=== PATIENT | female | born 1935 | race Caucasian/White ===

== ENCOUNTER → 2017-08-03 14:25 | Outpatient (CLI) | payer MEDICARE, OTHER, SELFPAY ==
[2017-08-03 14:58] LABS: Add Manual Diff / Slide Review NO; Basophils Percent Auto 0.6 % (0-2); Eosinophils Percent Auto 2.5 % (2-4); Hematocrit 33.8 % (36-46); Lymphocytes Percent Auto 28.7 % (25-40); Mean Corpuscular HGB Conc 35.6 % (30-36); Mean Corpuscular Hemoglobin 32.5 PG (26-34); Mean Corpuscular Volume 91.3 fL (80-100); Monocytes Percent Auto 6.2 % (3-14); Neutrophils Absolute Auto 5200 /uL (3000-5900); Platelet Count 260 X10^3/uL (150-400); Red Blood Cell Count 3.71 X10^6/uL (4.0-5.2); Red Cell Distribution Width 12.9 % (11.6-14.8); White Blood Cell Count 8.4 X10^3/uL (4.5-11.0)
[2017-08-03 15:08] LABS: Alanine Aminotransferase 30 IU/L (9-52); Albumin 4.2 g/dL (3.5-5.0); Albumin Globulin Ratio 1.4 (1.0-2.8); Alkaline Phosphatase 114 U/L (38-126); Aspartate Aminotransferase 29 IU/L (14-36); BUN Creatinine Ratio 19.2 (6-22); Bilirubin Total 0.6 mg/dL (0.2-1.3); Blood Urea Nitrogen 25 mg/dL (7-17); Carbon Dioxide 26 mmol/L (22-32); Chloride 95 mmol/L (98-107); Cholesterol 150 mg/dL (140-199); Estimated Glomerular Filt Rate 39.4 mL/min (>60); Globulin 2.9 g/dL (1.7-4.1); Glucose 87 mg/dL (80-110); HDL Cholesterol 52 mg/dL (40-60); HEMOLYSIS < 15 (0-50); LDL Cholesterol Calculated 80 mg/dL (<100); Potassium 4.1 mmol/L (3.4-5.1); Sodium 131 mmol/L (137-145); Total Protein 7.1 g/dL (6.3-8.2); Triglycerides 88 mg/dL (35-150)
== END ==
PROVIDERS: PCP Physician Assistant; Visit Provider Physician Assistant
DX: I10 Essential (primary) hypertension (principal); E78.5 Hyperlipidemia, unspecified
CPT/HCPCS: 36415; 80053; 80061; 85025

== ENCOUNTER → 2017-08-14 13:26 | Outpatient (CLI) | payer MEDICARE, OTHER, SELFPAY ==
--- NOTE | 2017-08-14 | DI.CT.S_ITS ---
PROCEDURE: CT ABDOMEN PELVIS W CON INDICATIONS: 82 year-old female with right upper quadrant abdominal pain. TECHNIQUE: After the administration of oral and intravenous contrast, 5 mm thick sections acquired from the diaphragms to the symphysis. 5 mm thick coronal and sagittal reformats were performed. For radiation dose reduction, the following was used: automated exposure control, adjustment of mA and/or kV according to patient size. COMPARISON: None. FINDINGS: Image quality: Excellent. ABDOMEN: Lung bases: Lung bases are clear. Heart size is upper normal. There is small retrocardiac hiatal hernia. Solid organs: Liver is normal in size, with subtle 1.4 cm irregular enhancing lesion in segment 8 of the right hepatic lobe. Gallbladder contains a dependent 1.7 cm peripherally calcified gallstone. Biliary system is non-dilated. Pancreas enhances normally. Spleen is normal in size and enhancement. No adrenal nodules. Kidneys are normal in size, without hydronephrosis. 1.7 cm posteromedial right renal cortical simple cyst is present. Peritoneum and bowel: Stomach, small bowel, and colon loops are normal in caliber and wall thickness. Patient is status post appendectomy. There is moderate sigmoid colon diverticulosis. No free fluid or air. Nodes and vessels: No retroperitoneal or mesenteric adenopathy. Aorta and inferior vena cava are normal in caliber, with widespread aortoiliac atherosclerosis. Approximately 60% eccentric luminal stenoses involve the origins of the celiac trunk and superior mesenteric artery. The inferior mesenteric artery appears patent. Miscellaneous: No ventral hernias. PELVIS: Genitourinary: Bladder wall thickness is normal. Uterus and ovaries are normal in size. Miscellaneous: No inguinal hernias or adenopathy. Bones: No suspicious bony lesions. No vertebral body compression fractures. There is mild lumbar spine dextroscoliosis. IMPRESSION: 1. 1.7 cm dependent calcified gallstone, without evidence for acute cholecystitis. 2. Possible subtle 1.4 cm irregular enhancing right hepatic lobe lesion is indeterminate. Consider further characterization attempt with liver protocol pre-and post contrast abdominal MRI with Eovist contrast. 3. Small retrocardiac hiatal hernia. 4. Moderate sigmoid colon diverticulosis. 5. 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 Dictated by: Russ Butt M.D. on 08/14/2017 at 16:29 Approved by: Russ Butt M.D. on 08/14/2017 at 16:44
== END ==
PROVIDERS: PCP Physician Assistant; Visit Provider Physician Assistant
DX: R10.11 Right upper quadrant pain (principal); K80.80 Other cholelithiasis without obstruction; K44.9 Diaphragmatic hernia without obstruction or gangrene; K57.30 Diverticulosis of large intestine without perforation or abscess without bleeding; I77.4 Celiac artery compression syndrome; K55.1 Chronic vascular disorders of intestine
CPT/HCPCS: 74177

== ENCOUNTER 2018-04-25 11:20 | Emergency (ER) | payer MEDICARE, OTHER, SELFPAY ==
[2018-04-25 11:22] VITALS: BP 158/53; PULSE 55; RESP 16; TEMP 36.6; O2SAT 98; BMI 24.7
--- NOTE | 2018-04-25 11:48 | DI.CT.S_ITS ---
PROCEDURE: CT HEAD/BRAIN WO CON INDICATIONS: syncope on coumadin TECHNIQUE: Noncontrast 4.5 mm thick angled axial sections acquired from the foramen magnum to the vertex, with coronal and sagittal reformats. For radiation dose reduction, the following was used: automated exposure control, adjustment of mA and/or kV according to patient size. COMPARISON: [facility], CT, HEAD WITHOUT CONTRAST, 05/18/2017, 18:01. FINDINGS: Image quality: Excellent. CSF spaces: Basal cisterns are patent. No extra-axial fluid collections. The ventricles are symmetric in size and shape. Brain: No intracranial bleeds or masses. There is cerebral volume loss for age, with resultant ventricular and sulcal prominence. There are periventricular and deep white matter chronic small vessel ischemic changes. There is intracranial internal carotid artery atherosclerosis. Skull and face: Calvarium and visualized facial bones appear intact, without suspicious lesions. Sinuses: Visualized sinuses and mastoids are clear. IMPRESSION: 1. No acute intracranial process. 2. Moderate atrophy and chronic microvascular ischemic changes. Dictated by: Amy Nielsen M.D. on 04/25/2018 at 12:12 Approved by: Amy Nielsen M.D. on 04/25/2018 at 12:13
[2018-04-25 12:08] LABS: Add Manual Diff / Slide Review NO; Basophils Absolute Auto 0 /uL (0-100); Basophils Percent Auto 0.5 % (0-2); Eosinophils Absolute Auto 200 /uL (0-450); Eosinophils Percent Auto 2.7 % (2-4); Hematocrit 34.5 % (36-46); Hemoglobin 11.7 g/dL (12.0-16.0); Lymphocytes Absolute Auto 1400 /uL (1100-4500); Lymphocytes Percent Auto 20.4 % (25-40); Mean Corpuscular HGB Conc 33.9 % (30-36); Mean Corpuscular Hemoglobin 31.6 PG (26-34); Mean Corpuscular Volume 93.2 fL (80-100); Monocytes Absolute Auto 400 /uL (0-900); Monocytes Percent Auto 6.1 % (3-14); Neutrophils Absolute Auto 4900 /uL (1500-7000); Neutrophils Percent Auto 70.3 % (50-75); Platelet Count 250 X10^3/uL (150-400); Red Blood Cell Count 3.71 X10^6/uL (4.0-5.2); Red Cell Distribution Width 13.5 % (11.6-14.8)
[2018-04-25 12:09] LABS: INR 1.9 (0.9-1.3); Prothrombin Time 22.3 SECONDS (10.1-12.7)
[2018-04-25 12:13] LABS: Alanine Aminotransferase 30 IU/L (9-52); Albumin 3.9 g/dL (3.5-5.0); Albumin Globulin Ratio 1.3 (1.0-2.8); Alkaline Phosphatase 86 U/L (38-126); Aspartate Aminotransferase 26 IU/L (14-36); BUN Creatinine Ratio 19.2 (6-22); Bilirubin Total 0.5 mg/dL (0.2-1.3); Blood Urea Nitrogen 25 mg/dL (7-17); Calcium 9.6 mg/dL (8.4-10.2); Carbon Dioxide 24 mmol/L (22-32); Chloride 103 mmol/L (98-107); Creatine Kinase 51 U/L (30-135); Estimated Glomerular Filt Rate 39.4 mL/min (>60); Glucose 118 mg/dL (80-110); HEMOLYSIS < 15 (0-50); Potassium 3.9 mmol/L (3.4-5.1); Sodium 138 mmol/L (137-145); Total Protein 6.9 g/dL (6.3-8.2)
[2018-04-25 12:25] LABS: Troponin I < 0.012 ng/mL (0.01-0.034)
[2018-04-25] MEDS: SODIUM CHLORIDE 0.9% 1,000 ML 1000 ML IV (12:38)
--- NOTE | 2018-04-25 12:46 | ED.SYNCOPE ---
HPI - Syncope General Chief Complaint: Syncope Stated Complaint: PASSED OUT Time Seen by Provider: 04/25/18 11:41 Source: patient and family Mode of arrival: ambulatory Limitations: no limitations History of Present Illness HPI narrative: Patient is an 82-year-old female who presents after syncopal episode. She was previously constipated she did not take anything however she had is 4 loose bowel movements this morning. They did start out slightly formed however the last 2 were water. She was on the toilet when she passed out striking her head and cutting her right hand. She is on Coumadin as for factor 5 problem. She says she lost consciousness for about 10 min. His she is ambulatory in the ED she has no headache no visual problems no weakness no chest pain or heart palpitations. She denies any black or bloody stool no nausea or vomiting. MD complaint: loss of consciousness Onset (ago): hour(s) Witnessed: no Context: other ( While having bowel movement) Injuries sustained associated with event: head ( small abrasion left temporal area) and RUE ( dorsal side of hand) Current symptoms: none Related Data Home Medications Medication Instructions Recorded Confirmed alprazolam 0.25 mg PO DAILY PRN #0 05/18/17 amlodipine 10 mg PO QDAY #0 05/18/17 12/11/17 aspirin 81 mg PO QDAY #0 05/19/17 12/11/17 atorvastatin [Lipitor] 40 mg PO HS #0 05/19/17 12/11/17 carvedilol 25 mg tablet 25 mg PO BID 12/11/17 12/11/17 glucosamine-chondroitin 250 mg-200 2 tab PO QPC 12/11/17 12/11/17 mg tablet losartan 100 mg tablet 100 mg PO DAILY 12/11/17 12/11/17 magnesium 250 mg tablet 250 mg PO DAILY 12/11/17 12/11/17 terazosin 2 mg capsule 2 mg PO DAILY 12/11/17 12/11/17 vitamin B complex tablet 1 tab PO DAILY 12/11/17 12/11/17 warfarin 5 mg tablet 5 mg PO QMWF 12/11/17 12/11/17 Previous Rx's Medication Instructions Recorded estradiol 10 mcg vaginal tablet 10 mcg VAG 2XW #8 tab 01/04/18 Allergies Allergy/AdvReac Type Severity Reaction Status Date / Time No Known Drug Allergies Allergy Verified 04/25/18 11:30 Review of Systems Review of Systems ROS Unobtainable: All systems reviewed & are unremarkable except as noted in HPI and below Constitutional Denies chills, Denies fever(s), Denies lethargy and Denies weakness Eyes Denies change in vision, Denies eye discharge, Denies irritation and Denies loss of vision Cardiovascular Denies chest pain, Denies irregular heart rhythm, Denies lightheadedness, Denies palpitations, Denies dyspnea, Denies dyspnea on exertion and Denies orthopnea Respiratory Denies cough, Denies dyspnea, Denies dyspnea on exertion and Denies wheezing Gastrointestinal Gastrointestinal: Reports as per HPI Genitourinary Denies hematuria, Denies flank pain, Denies urinary incontinence and Denies urinary urgency Musculoskeletal Denies back pain, Denies muscle weakness, Denies numbness and Denies tingling Integumentary/Breasts Denies pruritus, Denies erythema, Denies rash and Denies wounds Neurologic Denies loss of vision, Denies numbness, Denies tingling and Denies weakness Endocrine Denies palpitations Allergic/Immunologic Denies wheezing [facility] Medical History Factor 5 Leiden mutation, heterozygous (Acute) Carpal tunnel syndrome (Chronic ~2010) Hearing loss (Chronic) Hypertension (Chronic ~2004) Kidney disease (Chronic ~1943) Vision disorder (Chronic) Measles (Resolved ~1947) Surgical History History of appendectomy (Resolved ~1957) Social History Smoking Status: Never smoker Social History Smoking Status: Never smoker Exam Initial Vital Signs Initial Vital Signs: Vital Signs Temperature 98 F 04/25/18 11:22 Pulse Rate 55 L 04/25/18 11:22 Respiratory Rate 16 04/25/18 11:22 Blood Pressure 158/53 H 04/25/18 11:22 Pulse Oximetry 98 04/25/18 11:22 GENERAL: Alert well-appearing elderly female HEENT: Head small left-sided temporal abrasion and no laceration no depressions no crepitation, neck is supple no vertebral tenderness no step-offs,EOMI, pupils reactive CARDIOVASCULAR: Regular rate and rhythm without murmurs, rubs or gallops. RESPIRATORY: Breath sounds equal bilaterally, no wheezes rales or rhonchi. ABDOMEN: Soft, nontender. Normoactive bowel sounds all 4 quadrants. No guarding or rebound. EXTREMITIES: Normal range of motion, no clubbing or edema. Neurovascularly intact NEUROLOGICAL: Alert and oriented x4.Normal gait and speech. 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 Good skin approximation. Course Orders Ordered: ED Orders 04/25/18 11:45 Complete Blood Count AUTO DIFF Stat Comprehensive Metabolic Panel Stat Prothrombin Time INR Stat Troponin & CK Cardiac Panel Stat 04/25/18 11:48 CT head/brain wo con Stat Discontinued Medications Sodium Chloride (Normal Saline 0.9%) 1,000 mls @ 1,000 mls/hr IV BOLUS ONE Stop: 04/25/18 12:47 Last Infusion: 04/25/18 14:07 Dose: 0 mls/hr Admin: 04/25/18 12:38 Dose: 1,000 mls/hr Vital Signs - 8 hr 04/25/18 11:22 04/25/18 13:30 04/25/18 14:07 Temperature 98 F Pulse Rate 55 L 63 63 Respiratory Rate 16 16 21 Blood Pressure 158/53 H 150/55 H Blood Pressure [Right Arm] 145/51 H Pulse Oximetry 98 98 97 MDM - Syncope Lab Data Attestation: I reviewed the patient's lab results. Result diagrams: 04/25/18 11:45 04/25/18 11:45 Lab Results 04/25/18 04/25/18 04/25/18 Range/Units 11:45 11:45 11:45 WBC 7.0 (4.5-11.0) X10^3/uL RBC 3.71 L (4.0-5.2) X10^6/uL Hgb 11.7 L (12.0-16.0) g/dL Hct 34.5 L (36-46) % MCV 93.2 (80-100) fL MCH 31.6 (26-34) PG MCHC 33.9 (30-36) % RDW 13.5 (11.6-14.8) % Plt Count 250 (150-400) X10^3/uL Neut % (Auto) 70.3 (50-75) % Lymph % (Auto) 20.4 L (25-40) % [place] % (Auto) 6.1 (3-14) % Eos % (Auto) 2.7 (2-4) % Baso % (Auto) 0.5 (0-2) % Neut # (Auto) 4900 (6136-6880) /uL Lymph # (Auto) 1400 (7606-0136) /uL [place] # (Auto) 400 (0-900) /uL Eos # (Auto) 200 (0-450) /uL Baso # (Auto) 0 (0-100) /uL PT 22.3 H (10.1-12.7) SECONDS INR 1.9 H (0.9-1.3) Sodium 138 (137-145) mmol/L Potassium 3.9 (3.4-5.1) mmol/L Chloride 103 (98-107) mmol/L Carbon Dioxide 24 (22-32) mmol/L BUN 25 H (7-17) mg/dL Creatinine 1.30 H (0.52-1.04) mg/dL Estimated GFR 39.4 L (>60) mL/min BUN/Creatinine Ratio 19.2 (6-22) Glucose 118 H (80-110) mg/dL Calcium 9.6 (8.4-10.2) mg/dL Total Bilirubin 0.5 (0.2-1.3) mg/dL AST 26 (14-36) IU/L ALT 30 (9-52) IU/L Alkaline Phosphatase 86 (38-126) U/L Total Creatine Kinase 51 (30-135) U/L CK-MB (CK-2) TNP CK-MB (CK-2) Rel Index TNP Troponin I < 0.012 (0.01-0.034) ng/mL Total Protein 6.9 (6.3-8.2) g/dL Albumin 3.9 (3.5-5.0) g/dL Globulin 3.0 (1.7-4.1) g/dL Albumin/Globulin Ratio 1.3 (1.0-2.8) Imaging Data CT scan - head: Radiologist's impression: PROCEDURE: CT HEAD/BRAIN WO CON INDICATIONS: syncope on coumadin TECHNIQUE: Noncontrast 4.5 mm thick angled axial sections acquired from the foramen magnum to the vertex, with coronal and sagittal reformats. For radiation dose reduction, the following was used: automated exposure control, adjustment of mA and/or kV according to patient size. COMPARISON: [facility], CT, HEAD WITHOUT CONTRAST, 05/18/2017, 18:01. FINDINGS: Image quality: Excellent. CSF spaces: Basal cisterns are patent. No extra-axial fluid collections. The ventricles are symmetric in size and shape. Brain: No intracranial bleeds or masses. There is cerebral volume loss for age, with resultant ventricular and sulcal prominence. There are periventricular and deep white matter chronic small vessel ischemic changes. There is intracranial internal carotid artery atherosclerosis. Skull and face: Calvarium and visualized facial bones appear intact, without suspicious lesions. Sinuses: Visualized sinuses and mastoids are clear. IMPRESSION: 1. No acute intracranial process. 2. Moderate atrophy and chronic microvascular ischemic changes. Dictated by: Amy Nielsen M.D. on 04/25/2018 at 12:12 ECG Data Attestation: I personally reviewed and interpreted this ECG as follows: Prior ECG tracings: available for review Interpretation: Normal sinus rhythm rate [address] changes no T-wave inversions appear interval 178 QTC 407 similar to prior EKGs MDM Narrative Medical decision making narrative: patient likely had a vasovagal reaction while having a bowel movement. As she did have another episode of diarrhea while in the ED she said it does seem to be slowing and becoming more solid again. At this time she appears well. Discharge Plan Departure Patient Disposition: Home Clinical Impression: Vasovagal syncope Diarrhea Qualifiers: Diarrhea type: unspecified type Qualified Code(s): R19.7 - Diarrhea, unspecified Discharge Date/Time: 04/25/18 14:09 Interventions: ED Discharge Assessment Last Done: 04/25/18 14:07 Instructions: DI for Syncope in Adults (Fainting) Activity Restrictions/Additional Instructions: *You have been diagnosed with Fainting, diarrhea *What to do: you likely PASSED OUT FROM [facility]. NO SIGNS OF DEHYDRATION. *Continue to take medications as directed *Follow up with your primary care provider in 2-3 days *Return to ER if you should have Worsening diarrhea, bloody diarrhea, recurrent passing out or any new, worsening or concerning symptoms Prescriptions: No Action alprazolam 0.25 MG tablet 0.25 mg PO DAILY PRNQty: 0 RF: 0 amlodipine 10 MG tablet 10 mg PO QDAY Qty: 0 RF: 0 atorvastatin [Lipitor] 40 MG tablet 40 mg PO HS Qty: 0 RF: 0 aspirin 81 MG tablet,delayed release (DR/EC) 81 mg PO QDAY Qty: 0 RF: 0 estradiol [Vagifem] 10 mcg tablet 10 mcg VAG 2XW Qty: 8 RF: 6 carvedilol 25 mg tablet 25 mg PO BID RF: 0 terazosin 2 mg capsule 2 mg PO DAILY RF: 0 warfarin 5 mg tablet 5 mg PO QMWF RF: 0 vitamin B complex [B Complex 1] tablet 1 tab PO DAILY RF: 0 magnesium 250 mg tablet 250 mg PO DAILY RF: 0 losartan 100 mg tablet 100 mg PO DAILY RF: 0 glucosamine-chondroitin [Osteo Bi-Flex] 250-200 mg tablet 2 tab PO QPC RF: 0 Referrals: Lynette Ulloa PA-C [Primary Care Provider] -
--- NOTE | 2018-04-25 12:50 | ED_ITS ---
HPI - Syncope General Chief Complaint: Syncope Stated Complaint: PASSED OUT Time Seen by Provider: 04/25/18 11:41 Source: patient and family Mode of arrival: ambulatory Limitations: no limitations History of Present Illness HPI narrative: Patient is an 82-year-old female who presents after syncopal episode. She was previously constipated she did not take anything however she had is 4 loose bowel movements this morning. They did start out slightly formed however the last 2 were water. She was on the toilet when she passed out striking her head and cutting her right hand. She is on Coumadin as for factor 5 problem. She says she lost consciousness for about 10 min. His she is ambulatory in the ED she has no headache no visual problems no weakness no chest pain or heart palpitations. She denies any black or bloody stool no nausea or vomiting. MD complaint: loss of consciousness Onset (ago): hour(s) Witnessed: no Context: other ( While having bowel movement) Injuries sustained associated with event: head ( small abrasion left temporal area) and RUE ( dorsal side of hand) Current symptoms: none Related Data Home Medications Medication Instructions Recorded Confirmed alprazolam 0.25 mg PO DAILY PRN #0 05/18/17 amlodipine 10 mg PO QDAY #0 05/18/17 12/11/17 aspirin 81 mg PO QDAY #0 05/19/17 12/11/17 atorvastatin [Lipitor] 40 mg PO HS #0 05/19/17 12/11/17 carvedilol 25 mg tablet 25 mg PO BID 12/11/17 12/11/17 glucosamine-chondroitin 250 mg-200 2 tab PO QPC 12/11/17 12/11/17 mg tablet losartan 100 mg tablet 100 mg PO DAILY 12/11/17 12/11/17 magnesium 250 mg tablet 250 mg PO DAILY 12/11/17 12/11/17 terazosin 2 mg capsule 2 mg PO DAILY 12/11/17 12/11/17 vitamin B complex tablet 1 tab PO DAILY 12/11/17 12/11/17 warfarin 5 mg tablet 5 mg PO QMWF 12/11/17 12/11/17 Previous Rx's Medication Instructions Recorded estradiol 10 mcg vaginal tablet 10 mcg VAG 2XW #8 tab 01/04/18 Allergies Allergy/AdvReac Type Severity Reaction Status Date / Time No Known Drug Allergies Allergy Verified 04/25/18 11:30 Review of Systems Review of Systems ROS Unobtainable: All systems reviewed & are unremarkable except as noted in HPI and below Constitutional Denies chills, Denies fever(s), Denies lethargy and Denies weakness Eyes Denies change in vision, Denies eye discharge, Denies irritation and Denies loss of vision Cardiovascular Denies chest pain, Denies irregular heart rhythm, Denies lightheadedness, Denies palpitations, Denies dyspnea, Denies dyspnea on exertion and Denies orthopnea Respiratory Denies cough, Denies dyspnea, Denies dyspnea on exertion and Denies wheezing Gastrointestinal Gastrointestinal: Reports as per HPI Genitourinary Denies hematuria, Denies flank pain, Denies urinary incontinence and Denies urinary urgency Musculoskeletal Denies back pain, Denies muscle weakness, Denies numbness and Denies tingling Integumentary/Breasts Denies pruritus, Denies erythema, Denies rash and Denies wounds Neurologic Denies loss of vision, Denies numbness, Denies tingling and Denies weakness Endocrine Denies palpitations Allergic/Immunologic Denies wheezing [facility] Medical History Factor 5 Leiden mutation, heterozygous (Acute) Carpal tunnel syndrome (Chronic ~2010) Hearing loss (Chronic) Hypertension (Chronic ~2004) Kidney disease (Chronic ~1943) Vision disorder (Chronic) Measles (Resolved ~1947) Surgical History History of appendectomy (Resolved ~1957) Social History Smoking Status: Never smoker Social History Smoking Status: Never smoker Exam Initial Vital Signs Initial Vital Signs: Vital Signs Temperature 98 F 04/25/18 11:22 Pulse Rate 55 L 04/25/18 11:22 Respiratory Rate 16 04/25/18 11:22 Blood Pressure 158/53 H 04/25/18 11:22 Pulse Oximetry 98 04/25/18 11:22 GENERAL: Alert well-appearing elderly female HEENT: Head small left-sided temporal abrasion and no laceration no depressions no crepitation, neck is supple no vertebral tenderness no step-offs,EOMI, pupils reactive CARDIOVASCULAR: Regular rate and rhythm without murmurs, rubs or gallops. RESPIRATORY: Breath sounds equal bilaterally, no wheezes rales or rhonchi. ABDOMEN: Soft, nontender. Normoactive bowel sounds all 4 quadrants. No guarding or rebound. EXTREMITIES: Normal range of motion, no clubbing or edema. Neurovascularly int act NEUROLOGICAL: Alert and oriented x4.Normal gait and speech. 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 Good ski n approximation. Course Orders Ordered: ED Orders 04/25/18 11:45 Complete Blood Count AUTO DIFF Stat Comprehensive Metabolic Panel Stat Prothrombin Time INR Stat Troponin & CK Cardiac Panel Stat 04/25/18 11:48 CT head/brain wo con Stat Discontinued Medications Sodium Chloride (Normal Saline 0.9%) 1,000 mls @ 1,000 mls/hr IV BOLUS ONE Stop: 04/25/18 12:47 Last Infusion: 04/25/18 14:07 Dose: 0 mls/hr Admin: 04/25/18 12:38 Dose: 1,000 mls/hr Vital Signs - 8 hr 04/25/18 11:22 04/25/18 13:30 04/25/18 14:07 Temperature 98 F Pulse Rate 55 L 63 63 Respiratory Rate 16 16 21 Blood Pressure 158/53 H 150/55 H Blood Pressure [Right Arm] 145/51 H Pulse Oximetry 98 98 97 MDM - Syncope Lab Data Attestation: I reviewed the patient's lab results. Result diagrams: 04/25/18 11:45 04/25/18 11:45 Lab Results 04/25/18 04/25/18 04/25/18 Range/Units 11:45 11:45 11:45 WBC 7.0 (4.5-11.0) X10^3/uL RBC 3.71 L (4.0-5.2) X10^6/uL Hgb 11.7 L (12.0-16.0) g/dL Hct 34.5 L (36-46) % MCV 93.2 (80-100) fL MCH 31.6 (26-34) PG MCHC 33.9 (30-36) % RDW 13.5 (11.6-14.8) % Plt Count 250 (150-400) X10^3/uL Neut % (Auto) 70.3 (50-75) % Lymph % (Auto) 20.4 L (25-40) % [place] % (Auto) 6.1 (3-14) % Eos % (Auto) 2.7 (2-4) % Baso % (Auto) 0.5 (0-2) % Neut # (Auto) 4900 (1118-2965) /uL Lymph # (Auto) 1400 (1741-4406) /uL [place] # (Auto) 400 (0-900) /uL Eos # (Auto) 200 (0-450) /uL Baso # (Auto) 0 (0-100) /uL PT 22.3 H (10.1-12.7) SECONDS INR 1.9 H (0.9-1.3) Sodium 138 (137-145) mmol/L Potassium 3.9 (3.4-5.1) mmol/L Chloride 103 (98-107) mmol/L Carbon Dioxide 24 (22-32) mmol/L BUN 25 H (7-17) mg/dL Creatinine 1.30 H (0.52-1.04) mg/dL Estimated GFR 39.4 L (>60) mL/min BUN/Creatinine Ratio 19.2 (6-22) Glucose 118 H (80-110) mg/dL Calcium 9.6 (8.4-10.2) mg/dL Total Bilirubin 0.5 (0.2-1.3) mg/dL AST 26 (14-36) IU/L ALT 30 (9-52) IU/L Alkaline Phosphatase 86 (38-126) U/L Total Creatine Kinase 51 (30-135) U/L CK-MB (CK-2) TNP CK-MB (CK-2) Rel Index TNP Troponin I < 0.012 (0.01-0.034) ng/mL Total Protein 6.9 (6.3-8.2) g/dL Albumin 3.9 (3.5-5.0) g/dL Globulin 3.0 (1.7-4.1) g/dL Albumin/Globulin Ratio 1.3 (1.0-2.8) Imaging Data CT scan - head: Radiologist's impression: PROCEDURE: CT HEAD/BRAIN WO CON INDICATIONS: syncope on coumadin TECHNIQUE: Noncontrast 4.5 mm thick angled axial sections acquired from the foramen magnum to the vertex, with coronal and sagittal reformats. For radiation dose reduction, the following was used: automated exposure control, adjustment of mA and/or kV according to patient size. COMPARISON: [facility], CT, HEAD WITHOUT CONTRAST, 05/18/2017, 18:01. FINDINGS: Image quality: Excellent. CSF spaces: Basal cisterns are patent. No extra-axial fluid collections. The ventricles are symmetric in size and shape. Brain: No intracranial bleeds or masses. There is cerebral volume loss for age, with resultant ventricular and sulcal prominence. There are periventricular and deep white matter chronic small vessel ischemic changes. There is intracranial internal carotid artery atherosclerosis. Skull and face: Calvarium and visualized facial bones appear intact, without suspicious lesions. Sinuses: Visualized sinuses and mastoids are clear. IMPRESSION: 1. No acute intracranial process. 2. Moderate atrophy and chronic microvascular ischemic changes. Dictated by: Amy Nielsen M.D. on 04/25/2018 at 12:12 ECG Data Attestation: I personally reviewed and interpreted this ECG as follows: Prior ECG tracings: available for review Interpretation: Normal sinus rhythm rate [address] changes no T-wave inversions appear interval 178 QTC 407 similar to prior EKGs MDM Narrative Medical decision making narrative: patient likely had a vasovagal reaction while having a bowel movement. As she did have another episode of diarrhea while in the ED she said it does seem to be slowing and becoming more solid again. At this time she appears well. Discharge Plan Departure Patient Disposition: Home Clinical Impression: Vasovagal syncope Diarrhea Qualifiers: Diarrhea type: unspecified type Qualified Code(s): R19.7 - Diarrhea, unspeci fied Discharge Date/Time: 04/25/18 14:09 Interventions: ED Discharge Assessment Last Done: 04/25/18 14:07 Instructions: DI for Syncope in Adults (Fainting) Activity Restrictions/Additional Instructions: *You have been diagnosed with Fainting, diarrhea *What to do: you likely PASSED OUT FROM [facility]. NO SIGNS OF DEHYDRATION. *Continue to take medications as directed *Follow up with your primary care provider in 2-3 days *Return to ER if you should have Worsening diarrhea, bloody diarrhea, recurrent passing out or any new, worsening or concerning symptoms Prescriptions: No Action alprazolam 0.25 MG tablet 0.25 mg PO DAILY PRNQty: 0 RF: 0 amlodipine 10 MG tablet 10 mg PO QDAY Qty: 0 RF: 0 atorvastatin [Lipitor] 40 MG tablet 40 mg PO HS Qty: 0 RF: 0 aspirin 81 MG tablet,delayed release (DR/EC) 81 mg PO QDAY Qty: 0 RF: 0 estradiol [Vagifem] 10 mcg tablet 10 mcg VAG 2XW Qty: 8 RF: 6 carvedilol 25 mg tablet 25 mg PO BID RF: 0 terazosin 2 mg capsule 2 mg PO DAILY RF: 0 warfarin 5 mg tablet 5 mg PO QMWF RF: 0 vitamin B complex [B Complex 1] tablet 1 tab PO DAILY RF: 0 magnesium 250 mg tablet 250 mg PO DAILY RF: 0 losartan 100 mg tablet 100 mg PO DAILY RF: 0 glucosamine-chondroitin [Osteo Bi-Flex] 250-200 mg tablet 2 tab PO QPC RF: 0 Referrals: Lynette Ulloa PA-C [Primary Care Provider] -
[2018-04-25 13:30] VITALS: BP 145/51; PULSE 63; RESP 16; O2SAT 98
[2018-04-25 14:07] VITALS: BP 150/55; PULSE 63; RESP 21; O2SAT 97
== END 2018-04-25 14:09 | disposition home or self-care (01) ==
PROVIDERS: Emergency Provider Emergency Medicine; PCP Physician Assistant
DX: R55 Syncope and collapse (principal); R19.7 Diarrhea, unspecified
CPT/HCPCS: 36415; 70450; 80053; 82550; 84484; 85025; 85610; 93005; 93010; 96360; 99283; 99285

== ENCOUNTER → 2018-06-09 11:12 | Outpatient (CLI) | payer MEDICARE, OTHER, SELFPAY ==
--- NOTE | 2018-06-09 | DI.RAD.S_ITS ---
PROCEDURE: XR FOOT LT MIN 3V INDICATIONS: LEFT FOOT AND LEFT ANKLE PAIN TECHNIQUE: 3 views of the foot were acquired. COMPARISON: None. FINDINGS: Bones: No fractures or dislocations. No suspicious bony lesions. Soft tissues: No tibiotalar joint effusion. Achilles tendon appears normal. Presumed distal venous calcifications, dystrophic in appearance, at the medial and lateral soft tissues of the distal calf. 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 Dictated by: Shahbaz Green M.D. on 06/09/2018 at 12:39 Approved by: Shahbaz Green M.D. on 06/09/2018 at 12:40
--- NOTE | 2018-06-09 | DI.RAD.S_ITS ---
PROCEDURE: XR ANKLE LT MIN 3V INDICATIONS: LEFT FOOT AND LEFT ANKLE PAIN TECHNIQUE: 3 views of the ankle were acquired. COMPARISON: None. FINDINGS: Bones: No fractures or dislocations there is a mild to moderate degree of tibiotalar joint degenerative joint space thinning. Ankle mortise is normally aligned. No suspicious bony lesions. Soft tissues: No tibiotalar joint effusion. Achilles tendon appears normal. Dystrophic calcifications likely within venous structures or phleboliths are present along the calf soft tissues both medially and laterally. 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 Dystrophic presumed venous calcifications as noted. Dictated by: Shahbaz Green M.D. on 06/09/2018 at 12:38 Approved by: Shahbaz Green M.D. on 06/09/2018 at 12:39
== END ==
PROVIDERS: PCP Physician Assistant; Visit Provider Physician Assistant
DX: M19.072 Primary osteoarthritis, left ankle and foot (principal); M25.572 Pain in left ankle and joints of left foot; M25.472 Effusion, left ankle
CPT/HCPCS: 73610; 73630

== ENCOUNTER → 2018-06-21 07:13 | Outpatient (CLI) | payer MEDICARE, OTHER, SELFPAY ==
[2018-06-21 08:30] LABS: Alanine Aminotransferase 37 IU/L (9-52); Albumin 3.5 g/dL (3.5-5.0); Albumin Globulin Ratio 1.3 (1.0-2.8); Alkaline Phosphatase 126 U/L (38-126); Aspartate Aminotransferase 29 IU/L (14-36); BUN Creatinine Ratio 21.5 (6-22); Bilirubin Total 0.5 mg/dL (0.2-1.3); Blood Urea Nitrogen 28 mg/dL (7-17); Calcium 9.7 mg/dL (8.4-10.2); Carbon Dioxide 22 mmol/L (22-32); Chloride 104 mmol/L (98-107); Cholesterol 197 mg/dL (140-199); Estimated Glomerular Filt Rate 39.3 mL/min (>60); Globulin 2.7 g/dL (1.7-4.1); Glucose 84 mg/dL (80-110); HDL Cholesterol 43 mg/dL (40-60); HEMOLYSIS < 15 (0-50); LDL Cholesterol Calculated 135 mg/dL (<100); Potassium 4.1 mmol/L (3.4-5.1); Sodium 136 mmol/L (137-145); Total Protein 6.2 g/dL (6.3-8.2); Triglycerides 97 mg/dL (35-150)
== END ==
PROVIDERS: Family Provider Physician Assistant; PCP Physician Assistant; Visit Provider Internal Medicine Cardiovascular Disease
DX: I10 Essential (primary) hypertension (principal)
CPT/HCPCS: 36415; 80053; 80061

== ENCOUNTER → 2018-11-04 09:30 | Outpatient (CLI) | payer MEDICARE, OTHER, SELFPAY ==
--- NOTE | 2018-11-04 10:42 | PM.TREADMILL ---
Cardiac Stress Test Report Referral & Results Date Patient Seen: 11/04/18 Requesting provider: Berta Oliva Indication: Vascular disease Rest ECG: Unremarkable Procedure Note: Today following both written and verbal informed consent the patient was exercised according to a standard Arik protocol patient went for a total of 5 minutes 3 seconds achieving a maximum heart rate of 113 maximum systolic blood pressure of 160 for. This is approximately 7.0 METS. Exercise was terminated at this point because of inability the patient to continue. Patient was also given Cardiolite through a previously started Hep-Lock IV by the diagnostic imaging staff approximately 1 minute prior to the cessation of exercise. Patient had a blunted heart rate response hit only about 93% of target heart rate. Blood pressure response was probably normal although maybe somewhat blunted as well No ST-T segment changes No dysrhythmias Functional aerobic impairment rates about-5% or 105% normal on the active scale Impression: No evidence of ischemia Average exercise capacity Please see perfusion imaging report as well Please note: Actual ECG tracings can be found in the PACS system.
--- NOTE | 2018-11-06 06:39 | DI.NM.S_ITS ---
DATE OF SERVICE: 11/05/2018 PROCEDURE: Exercise Myoview stress test. INDICATIONS: Atherosclerotic vascular disease, hypertension, hyperlipidemia. RADIOPHARMACEUTICAL: 27.3 mCi technetium-99m Myoview IV was injected at stress and 25.4 mCi technetium-99m Myoview IV was injected at rest. CARDIAC STRESS: The patient underwent exercise Myoview stress test under the supervision of an attending staff. She walked on Arik protocol for 5 minutes 03 second and felt fatigued. She was unable to continue. There was normal blood pressure response. She achieved 81% of target heart rate. Baseline exam was sinus with mild sinus bradycardia. During stress, there were no convincing ischemic changes. No significant arrhythmias seen. HONG -5%. RAW DATA: There appears to be adequate myocardial uptake. Gated study stress LV ejection fraction 95% without any obvious wall motion abnormalities. LV function appears to be hyperdynamic. TID ratio is 0.86, which is within normal limits. Resting end-diastolic volume 60. Lung/heart ratio 0.31, which is within normal limits. MYOCARDIAL PERFUSION: There is a normal myocardial perfusion. CONCLUSION: This is a normal myocardial perfusion study. It was a submaximal exercise stress test. The patient achieved 81% of target heart rate. On that workload, there was no ischemia or infarction. Functional aerobic impairment - 5%. Overall, this is a low-risk myocardial perfusion study. Leisa Espinoza - [employer]/fn/ts doc#: [id number]/job#: [id number] dd: 11/05/2018 12:37:00 dt: 11/06/2018 06:25:00 DICTATING /COPIES TO: Berta Oliva MD COPIES MNE: ROCKY
== END ==
PROVIDERS: PCP Physician Assistant; Visit Provider Internal Medicine Cardiovascular Disease
DX: I70.90 Unspecified atherosclerosis (principal); I10 Essential (primary) hypertension; E78.5 Hyperlipidemia, unspecified
CPT/HCPCS: 78452; 93016; 93017; 93018; A9502

== ENCOUNTER → 2019-02-04 13:20 | Outpatient (CLI) | payer MEDICARE, OTHER, SELFPAY ==
--- NOTE | 2019-02-04 | DI.MG.S_ITS ---
BILATERAL DIGITAL SCREENING MAMMOGRAM 3D/2D WITH CAD: 02/04/2019 CLINICAL: Routine screening. Family history of breast cancer. Comparison is made to exams dated: 03/06/2016 mammogram, 03/01/2015 mammogram - [facility], 11/08/2012 mammogram, and 09/16/2011 mammogram - [facility]. There are scattered fibroglandular elements in both breasts. Current study was also evaluated with a Computer Aided Detection (CAD) system. There are benign vascular calcifications in both breasts. There are mole markers on both breasts. No significant masses, calcifications, or other findings are seen in either breast. There has been no significant interval change. IMPRESSION: There is no mammographic evidence of malignancy. A 1 year screening mammogram is recommended. This exam was interpreted at Station ID: [id number]. NOTE: For mammograms, a report in lay terms will be sent to the patient. Approximately 15% of breast malignancies will not be visualized mammographically. In the management of a palpable breast mass, a negative mammogram must not discourage biopsy of a clinically suspicious lesion. Electronically Signed By: Mitul vasquez/pat:02/04/2019 18:57:42 letter sent: Normal Exam ACR BI-RADS Category 2: Benign Finding(s) 3342F
== END ==
PROVIDERS: PCP Physician Assistant; Visit Provider Physician Assistant
DX: Z12.31 Encounter for screening mammogram for malignant neoplasm of breast (principal); Z80.3 Family history of malignant neoplasm of breast
CPT/HCPCS: 77063; 77067

== ENCOUNTER → 2019-02-28 19:09 | Outpatient (ROUT) | payer MEDICARE, OTHER, SELFPAY ==
[2019-02-28 19:22] LABS: Add Manual Diff / Slide Review NO; Basophils Absolute Auto 100 /uL (0-100); Basophils Percent Auto 1.2 % (0-2); Eosinophils Absolute Auto 400 /uL (0-450); Eosinophils Percent Auto 4.5 % (2-4); Hematocrit 33.1 % (36-46); Hemoglobin 11.5 g/dL (12.0-16.0); Lymphocytes Absolute Auto 2200 /uL (1100-4500); Lymphocytes Percent Auto 25.5 % (25-40); Mean Corpuscular HGB Conc 34.8 % (30-36); Mean Corpuscular Volume 94.9 fL (80-100); Monocytes Absolute Auto 600 /uL (0-900); Monocytes Percent Auto 7.3 % (3-14); Neutrophils Absolute Auto 5200 /uL (1500-7000); Neutrophils Percent Auto 61.5 % (50-75); Platelet Count 301 X10^3/uL (150-400); Red Blood Cell Count 3.49 X10^6/uL (4.0-5.2); Red Cell Distribution Width 12.6 % (11.6-14.8); White Blood Cell Count 8.5 X10^3/uL (4.5-11.0)
[2019-02-28 19:29] LABS: Alanine Aminotransferase 19 IU/L (<35); Albumin 3.8 g/dL (3.5-5.0); Albumin Globulin Ratio 1.5 (1.0-2.8); Alkaline Phosphatase 123 U/L (38-126); Aspartate Aminotransferase 30 IU/L (14-36); BUN Creatinine Ratio 24.2 (6-22); Bilirubin Total 0.5 mg/dL (0.2-1.3); Blood Urea Nitrogen 29 mg/dL (7-17); C-Reactive Protein Quant 0.7 mg/dL (<1.0); Calcium 10.1 mg/dL (8.4-10.2); Carbon Dioxide 24 mmol/L (22-32); Chloride 102 mmol/L (98-107); Cholesterol 147 mg/dL (140-199); Estimated Glomerular Filt Rate 43.1 mL/min (>60); Globulin 2.6 g/dL (1.7-4.1); Glucose 86 mg/dL (80-110); HDL Cholesterol 40 mg/dL (40-60); HEMOLYSIS < 15 (0-50); LDL Cholesterol Calculated 86 mg/dL (<100); Potassium 4.6 mmol/L (3.4-5.1); Sodium 136 mmol/L (137-145); Total Protein 6.4 g/dL (6.3-8.2); Triglycerides 107 mg/dL (35-150)
[2019-02-28 19:43] LABS: Vitamin D 25 Hydroxy (D3) 70.7 ng/mL (30.0-100.0)
== END ==
PROVIDERS: PCP Physician Assistant; Visit Provider Physician Assistant
DX: I10 Essential (primary) hypertension (principal); E78.5 Hyperlipidemia, unspecified; R79.82 Elevated C-reactive protein (CRP); E55.9 Vitamin D deficiency, unspecified
CPT/HCPCS: 80053; 80061; 82306; 85025; 86140

== ENCOUNTER → 2019-03-01 15:11 | Outpatient (ROUT) | payer MEDICARE, OTHER, SELFPAY | PROVIDERS: PCP Physician Assistant; Visit Provider Physician Assistant | DX: I10 Essential (primary) hypertension (principal) ==

== ENCOUNTER → 2019-03-22 15:57 | Outpatient (ROUT) | payer MEDICARE, OTHER, SELFPAY ==
[2019-03-22 16:13] LABS: Add Manual Diff / Slide Review NO; Basophils Absolute Auto 100 /uL (0-100); Basophils Percent Auto 0.7 % (0-2); Eosinophils Absolute Auto 300 /uL (0-450); Hematocrit 35.2 % (36-46); Hemoglobin 12.3 g/dL (12.0-16.0); Lymphocytes Absolute Auto 1800 /uL (1100-4500); Lymphocytes Percent Auto 24.3 % (25-40); Mean Corpuscular HGB Conc 34.9 % (30-36); Mean Corpuscular Hemoglobin 32.8 PG (26-34); Mean Corpuscular Volume 94.2 fL (80-100); Monocytes Absolute Auto 400 /uL (0-900); Monocytes Percent Auto 5.9 % (3-14); Neutrophils Absolute Auto 4900 /uL (1500-7000); Neutrophils Percent Auto 65.1 % (50-75); Platelet Count 270 X10^3/uL (150-400); Red Blood Cell Count 3.73 X10^6/uL (4.0-5.2); White Blood Cell Count 7.5 X10^3/uL (4.5-11.0)
[2019-03-22 16:24] LABS: Alanine Aminotransferase 22 IU/L (<35); Albumin 4.1 g/dL (3.5-5.0); Albumin Globulin Ratio 1.3 (1.0-2.8); Alkaline Phosphatase 119 U/L (38-126); Aspartate Aminotransferase 36 IU/L (14-36); BUN Creatinine Ratio 23.1 (6-22); Bilirubin Total 0.5 mg/dL (0.2-1.3); Blood Urea Nitrogen 30 mg/dL (7-17); Calcium 10.4 mg/dL (8.4-10.2); Carbon Dioxide 25 mmol/L (22-32); Chloride 103 mmol/L (98-107); Estimated Glomerular Filt Rate 39.3 mL/min (>60); Globulin 3.1 g/dL (1.7-4.1); Glucose 81 mg/dL (80-110); HEMOLYSIS < 15 (0-50); Potassium 4.3 mmol/L (3.4-5.1); Sodium 137 mmol/L (137-145); Total Protein 7.2 g/dL (6.3-8.2)
[2019-03-22 16:26] LABS: C-Reactive Protein Quant < 0.5 mg/dL (<1.0)
[2019-03-22 16:27] LABS: Erythrocyte Sedimentation Rate 32 MM/HR (0-20)
== END ==
PROVIDERS: PCP Physician Assistant; Visit Provider Physician Assistant
DX: L03.116 Cellulitis of left lower limb (principal); I10 Essential (primary) hypertension
CPT/HCPCS: 80053; 85025; 85651; 86140

== ENCOUNTER → 2019-03-28 14:15 | Outpatient (CLI) | payer MEDICARE, OTHER, SELFPAY | PROVIDERS: PCP Physician Assistant; Visit Provider Family Medicine | DX: I87.2 Venous insufficiency (chronic) (peripheral) (principal); R60.9 Edema, unspecified | CPT/HCPCS: 99203; 99213 ==

== ENCOUNTER → 2019-04-04 10:44 | Outpatient (CLI) | payer MEDICARE, OTHER, SELFPAY | PROVIDERS: PCP Physician Assistant; Referring Provider Physician Assistant; Visit Provider Family Medicine | DX: I87.2 Venous insufficiency (chronic) (peripheral) (principal); R21 Rash and other nonspecific skin eruption; R60.0 Localized edema | CPT/HCPCS: 99212; 99213 ==

== ENCOUNTER → 2019-08-08 07:24 | Outpatient (CLI) | payer MEDICARE, OTHER, SELFPAY ==
[2019-08-08 08:13] LABS: Alanine Aminotransferase 17 IU/L (<35); Albumin 3.6 g/dL (3.5-5.0); Albumin Globulin Ratio 1.3 (1.0-2.8); Alkaline Phosphatase 105 U/L (38-126); Aspartate Aminotransferase 28 IU/L (14-36); BUN Creatinine Ratio 24.6 (6-22); Bilirubin Total 0.4 mg/dL (0.2-1.3); Blood Urea Nitrogen 29 mg/dL (7-17); Calcium 9.9 mg/dL (8.4-10.2); Carbon Dioxide 23 mmol/L (22-32); Chloride 111 mmol/L (98-107); Cholesterol 137 mg/dL (140-199); Estimated Glomerular Filt Rate 43.9 mL/min (>60); Globulin 2.8 g/dL (1.7-4.1); Glucose 93 mg/dL (80-110); HDL Cholesterol 54 mg/dL (40-60); HEMOLYSIS < 15 (0-50); LDL Cholesterol Calculated 67 mg/dL (<100); Potassium 4.1 mmol/L (3.4-5.1); Sodium 139 mmol/L (137-145); Total Protein 6.4 g/dL (6.3-8.2); Triglycerides 78 mg/dL (35-150)
== END ==
PROVIDERS: PCP Physician Assistant; Referring Provider Internal Medicine Cardiovascular Disease; Visit Provider Internal Medicine Cardiovascular Disease
DX: I70.90 Unspecified atherosclerosis (principal); I10 Essential (primary) hypertension
CPT/HCPCS: 36415; 80053; 80061

== ENCOUNTER → 2019-12-15 16:16 | Outpatient (ROUT) | payer MEDICARE, OTHER, SELFPAY ==
[2019-12-15 17:10] LABS: Add Manual Diff / Slide Review NO; Basophils Absolute Auto 100 /uL (0-100); Basophils Percent Auto 0.8 % (0-2); Eosinophils Absolute Auto 400 /uL (0-450); Eosinophils Percent Auto 4.4 % (2-4); Hematocrit 32.3 % (36-46); Hemoglobin 11.4 g/dL (12.0-16.0); Lymphocytes Absolute Auto 1800 /uL (1100-4500); Mean Corpuscular HGB Conc 35.2 % (30-36); Mean Corpuscular Hemoglobin 32.7 PG (26-34); Mean Corpuscular Volume 92.8 fL (80-100); Monocytes Absolute Auto 600 /uL (0-900); Monocytes Percent Auto 5.9 % (3-14); Neutrophils Absolute Auto 6700 /uL (1500-7000); Neutrophils Percent Auto 69.9 % (50-75); Platelet Count 281 X10^3/uL (150-400); Red Blood Cell Count 3.48 X10^6/uL (4.0-5.2); Red Cell Distribution Width 13.7 % (11.6-14.8); White Blood Cell Count 9.5 X10^3/uL (4.5-11.0)
[2019-12-15 17:32] LABS: Prothrombin Time 34.1 SECONDS (10.1-12.7)
[2019-12-15 17:41] LABS: Alanine Aminotransferase 17 IU/L (<35); Albumin 3.5 g/dL (3.5-5.0); Albumin Globulin Ratio 1.3 (1.0-2.8); Alkaline Phosphatase 146 U/L (38-126); Aspartate Aminotransferase 26 IU/L (14-36); BUN Creatinine Ratio 21.4 (6-22); Bilirubin Total 0.5 mg/dL (0.2-1.3); Blood Urea Nitrogen 25 mg/dL (7-17); Calcium 9.8 mg/dL (8.4-10.2); Carbon Dioxide 24 mmol/L (22-32); Chloride 99 mmol/L (98-107); Cholesterol 210 mg/dL (140-199); Estimated Glomerular Filt Rate 44.3 mL/min (>60); Globulin 2.8 g/dL (1.7-4.1); Glucose 102 mg/dL (80-110); HDL Cholesterol 45 mg/dL (40-60); HEMOLYSIS < 15 (0-50); LDL Cholesterol Calculated 138 mg/dL (<100); Magnesium 1.8 mg/dL (1.6-2.3); Potassium 4.5 mmol/L (3.4-5.1); Sodium 130 mmol/L (137-145); Total Protein 6.3 g/dL (6.3-8.2); Triglycerides 134 mg/dL (35-150)
== END ==
PROVIDERS: PCP Physician Assistant; Visit Provider Physician Assistant
DX: R42 Dizziness and giddiness (principal); R11.0 Nausea; I10 Essential (primary) hypertension; E78.5 Hyperlipidemia, unspecified; K21.00 Gastro-esophageal reflux disease with esophagitis, without bleeding; Z86.718 Personal history of other venous thrombosis and embolism
CPT/HCPCS: 80053; 80061; 83735; 84443; 85025; 85610

== ENCOUNTER → 2020-02-16 15:40 | Outpatient (CLI) | payer MEDICARE, OTHER, SELFPAY ==
--- NOTE | 2020-02-16 | DI.MG.S_ITS ---
BILATERAL DIGITAL SCREENING MAMMOGRAM 3D/2D WITH CAD: 02/16/2020 CLINICAL: Routine screening. Family history of breast cancer. Comparison is made to exams dated: 02/04/2019 mammogram, 03/06/2016 mammogram, and 03/01/2015 mammogram - [facility]. There are scattered fibroglandular elements in both breasts. Current study was also evaluated with a Computer Aided Detection (CAD) system. There are benign vascular calcifications in both breasts. There are mole markers on both breasts. No significant masses, calcifications, or other findings are seen in either breast. There has been no significant interval change. IMPRESSION: BENIGN There is no mammographic evidence of malignancy. A 1 year screening mammogram is recommended. This exam was interpreted at Station ID: [id number]. NOTE: For mammograms, a report in lay terms will be sent to the patient. Approximately 15% of breast malignancies will not be visualized mammographically. In the management of a palpable breast mass, a negative mammogram must not discourage biopsy of a clinically suspicious lesion. Electronically Signed By: Esau Rodriguez acr/pat:02/16/2020 16:48:29 letter sent: Normal Exam ACR BI-RADS Category 2: Benign Finding(s) 3342F
== END ==
PROVIDERS: PCP Physician Assistant; Referring Provider Physician Assistant; Visit Provider Physician Assistant
DX: Z12.31 Encounter for screening mammogram for malignant neoplasm of breast (principal); Z80.3 Family history of malignant neoplasm of breast
CPT/HCPCS: 77063; 77067

== ENCOUNTER → 2020-05-07 11:40 | Outpatient (CLI) | payer MEDICARE, OTHER, SELFPAY ==
--- NOTE | 2020-05-07 11:43 | DI.RAD.S_ITS ---
PROCEDURE: XR KNEE RT 1TO2V INDICATIONS: ACUTE PAIN OF RIGHT KNEE TECHNIQUE: 2 views of the knee were acquired. COMPARISON: [facility], , KNEE 3V LEFT, 08/01/2016, 13:14. FINDINGS: Bones: No fractures or dislocations. Moderate tricompartmental osteoarthritis is seen more prominent in medial femoral tibial compartment. No suspicious bony lesions. Soft tissues: Moderate suprapatellar joint effusion is noted. Chondrocalcinosis in medial and lateral femoral tibial compartments are seen. IMPRESSION: Worsening moderate tricompartmental osteoarthritis more prominent in medial femoral tibial compartment. Moderate joint effusion. Chondrocalcinosis as above. No acute fracture or dislocation. Dictated by: Abdon Smith M.D. on 05/07/2020 at 13:06 Approved by: Abdon Smith M.D. on 05/07/2020 at 13:17
== END ==
PROVIDERS: PCP Physician Assistant; Referring Provider Physician Assistant; Visit Provider Physician Assistant
DX: M25.561 Pain in right knee (principal); M17.11 Unilateral primary osteoarthritis, right knee; M25.461 Effusion, right knee; M11.261 Other chondrocalcinosis, right knee
CPT/HCPCS: 73560

== ENCOUNTER → 2020-05-08 18:50 | Outpatient (ROUT) | payer MEDICARE, OTHER, SELFPAY ==
[2020-05-08 19:28] LABS: Add Manual Diff / Slide Review NO; Basophils Absolute Auto 0 /uL (0-100); Basophils Percent Auto 0.3 % (0-2); Eosinophils Absolute Auto 200 /uL (0-450); Eosinophils Percent Auto 2.5 % (2-4); Hematocrit 34.3 % (36-46); Hemoglobin 11.8 g/dL (12.0-16.0); Lymphocytes Absolute Auto 2700 /uL (1100-4500); Lymphocytes Percent Auto 36.2 % (25-40); Mean Corpuscular HGB Conc 34.3 % (30-36); Mean Corpuscular Hemoglobin 32.5 PG (26-34); Mean Corpuscular Volume 94.7 fL (80-100); Monocytes Absolute Auto 500 /uL (0-900); Monocytes Percent Auto 6.5 % (3-14); Neutrophils Absolute Auto 4100 /uL (1500-7000); Neutrophils Percent Auto 54.5 % (50-75); Platelet Count 258 X10^3/uL (150-400); Red Blood Cell Count 3.62 X10^6/uL (4.0-5.2); Red Cell Distribution Width 13.6 % (11.6-14.8); White Blood Cell Count 7.5 X10^3/uL (4.5-11.0)
[2020-05-08 19:34] LABS: HEMOLYSIS < 15 (0-50); Iron 70 ug/dL (37-170)
[2020-05-08 19:35] LABS: Alanine Aminotransferase 19 IU/L (<35); Albumin 3.6 g/dL (3.5-5.0); Albumin Globulin Ratio 1.3 (1.0-2.8); Alkaline Phosphatase 125 U/L (38-126); Aspartate Aminotransferase 28 IU/L (14-36); Bilirubin Total 0.2 mg/dL (0.2-1.3); Blood Urea Nitrogen 35 mg/dL (7-17); C-Reactive Protein Quant 0.6 mg/dL (<1.0); Calcium 9.7 mg/dL (8.4-10.2); Carbon Dioxide 25 mmol/L (22-32); Chloride 106 mmol/L (98-107); Cholesterol 230 mg/dL (140-199); Estimated Glomerular Filt Rate 31.1 mL/min (>60); Globulin 2.7 g/dL (1.7-4.1); Glucose 125 mg/dL (80-110); HDL Cholesterol 42 mg/dL (40-60); HEMOLYSIS < 15 (0-50); LDL Cholesterol Calculated 142 mg/dL (<100); Potassium 4.4 mmol/L (3.4-5.1); Sodium 137 mmol/L (137-145); Total Protein 6.3 g/dL (6.3-8.2); Triglycerides 230 mg/dL (35-150)
[2020-05-08 19:48] LABS: Percent Iron Saturation 25 % (15-50); Total Iron Binding Capacity 275 ug/dL (265-497)
[2020-05-08 19:49] LABS: Transferrin 185 mg/dL (206-381)
[2020-05-08 19:53] LABS: Vitamin D 25 Hydroxy (D3) 52.7 ng/mL (30.0-100.0)
[2020-05-08 20:08] LABS: Ferritin 31 ng/mL (11-264)
[2020-05-08 20:23] LABS: Erythrocyte Sedimentation Rate 32 MM/HR (0-20)
== END ==
PROVIDERS: PCP Physician Assistant; Visit Provider Physician Assistant
DX: I10 Essential (primary) hypertension (principal); R79.82 Elevated C-reactive protein (CRP); E78.5 Hyperlipidemia, unspecified; R53.83 Other fatigue; M17.11 Unilateral primary osteoarthritis, right knee
CPT/HCPCS: 80053; 80061; 82306; 82728; 83540; 83550; 84443; 85025; 85651; 86140

== ENCOUNTER → 2020-05-14 19:34 | Outpatient (ROUT) | payer MEDICARE, OTHER, SELFPAY | PROVIDERS: PCP Physician Assistant; Visit Provider Physician Assistant | DX: R31.9 Hematuria, unspecified (principal) | CPT/HCPCS: 87077; 87086; 87186 ==

== ENCOUNTER → 2020-05-24 18:19 | Outpatient (ROUT) | payer MEDICARE, OTHER, SELFPAY ==
[2020-05-24 18:23] LABS: Bacteria Urine None Seen
[2020-05-24 19:27] LABS: Appearance Urine UA CLEAR; Bilirubin Urine UA NEGATIVE (NEGATIVE); Color Urine UA YELLOW; Culture Indicated Urine Cult Not Indicated; Glucose Urine UA NEGATIVE (Negative); Ketones Urine UA NEGATIVE (NEGATIVE); Leukocyte Esterase Urine UA 2+ (NEGATIVE); Nitrite Urine UA NEGATIVE (Negative); Occult Blood Urine UA TRACE-LYSED (Negative); Protein Urine UA NEGATIVE (Negative); Urobilinogen Urine UA 0.2 E.U./dL (0.2)
[2020-05-24 19:28] LABS: RBC Urine 1-5/HPF (0-5/HPF); Squamous Epithelial Cell Urine 1-5 /HPF (0-5/HPF); WBC Urine 1-5/HPF (0-5/HPF)
== END ==
PROVIDERS: PCP Physician Assistant; Visit Provider Physician Assistant
DX: N39.0 Urinary tract infection, site not specified (principal)
CPT/HCPCS: 81001; 87086

== ENCOUNTER → 2020-10-03 10:29 | Outpatient (CLI) | payer MEDICARE, OTHER, SELFPAY ==
[2020-10-03 13:04] LABS: Alanine Aminotransferase 24 IU/L (<35); Albumin 3.7 g/dL (3.5-5.0); Albumin Globulin Ratio 1.3 (1.0-2.8); Alkaline Phosphatase 132 U/L (38-126); Aspartate Aminotransferase 36 IU/L (14-36); BUN Creatinine Ratio 20.1 (6-22); Bilirubin Total 0.5 mg/dL (0.2-1.3); Blood Urea Nitrogen 31 mg/dL (7-17); Carbon Dioxide 25 mmol/L (22-32); Chloride 103 mmol/L (98-107); Cholesterol 245 mg/dL (140-199); Estimated Glomerular Filt Rate 32.2 mL/min (>60); Globulin 2.9 g/dL (1.7-4.1); Glucose 95 mg/dL (80-110); HDL Cholesterol 46 mg/dL (40-60); HEMOLYSIS < 15 (0-50); LDL Cholesterol Calculated 170 mg/dL (<100); Magnesium 2.1 mg/dL (1.6-2.3); Potassium 4.6 mmol/L (3.4-5.1); Sodium 136 mmol/L (137-145); Total Protein 6.6 g/dL (6.3-8.2); Triglycerides 146 mg/dL (35-150)
[2020-10-03 13:27] LABS: TSH w/ Reflex to FT4 0.46 uIU/mL (0.47-4.68)
[2020-10-03 15:14] LABS: Free T4, Direct Thyroxine 1.27 ng/dL (0.78-2.19)
[2020-10-04 09:43] LABS: Calcium 10.4 mg/dL (8.7-10.3); Parathyroid Hormone, Intact 21 pg/mL (15-65)
== END ==
PROVIDERS: PCP Physician Assistant; Referring Provider Physician Assistant; Visit Provider Physician Assistant
DX: I48.11 Longstanding persistent atrial fibrillation (principal); E78.2 Mixed hyperlipidemia; E83.52 Hypercalcemia; R42 Dizziness and giddiness
CPT/HCPCS: 36415; 80053; 80061; 82310; 83735; 83970; 84439; 84443

== ENCOUNTER → 2020-10-11 10:57 | Outpatient (CLI) | payer MEDICARE, OTHER, SELFPAY ==
--- NOTE | 2020-10-11 | DI.US.S_ITS ---
PROCEDURE: US CAROTID DOPPLER BI INDICATIONS: OCCLUSION AND STENOSIS BILATERAL CAROTID ARTERIES TECHNIQUE: Color and pulse Doppler interrogation was performed of both carotid systems, with image documentation and velocity measurements. COMPARISON: [facility], , CAROTID ARTERY DOPPLER BILAT, 12/23/2016, 10:23.. FINDINGS: Stenosis calculations are based on SRU (Society of Radiologists in Ultrasound) criteria. Right side: Brachial blood pressure: 133/64 mm Hg. Common Carotid Artery PSV: - Distal: 109 cm/s (previously 115 cm/s) Internal Carotid Artery PSV - 140 cm/s (previously 124 cm/s) EDV- 20 cm/s (previously 27 cm/s) External Carotid Artery PSV- Proximal: 386 cm/s (previously 229 cm/s) ICA/CCA PSV- Ratio: 1.3 (previously 1.1 cm/s) Delacruz scale imaging description: By peak systolic velocity criteria, a stenosis may be present in the neighborhood of 50-69%. However, by grayscale imaging, the stenosis appears to be 50% or less. There is a severe external carotid artery stenosis, which is progressive. Percent internal carotid artery stenosis: 50% or less. (previously less than 50%) Vertebral artery: Flow direction is antegrade. Left side: Brachial blood pressure: 137/64 mm Hg. Common Carotid Artery PSV- Distal: 134 cm/s (previously 131 cm/s) Internal Carotid Artery PSV- 145 cm/s (previously 135 cm/s) EDV- 31 cm/s (previously 35 cm/s) External Carotid Artery PSV- Proximal: 160 cm/s (previously 157 cm/s) ICA/CCA PSV- Ratio: 1.1 (previously 1.0 cm/s) Delacruz scale imaging description: By systolic velocity criteria, the left internal carotid artery may have a stenosis of between 50-69%. However, by grayscale imaging, stenosis appears to measure 50% or less. Percent internal carotid artery stenosis: 50% or less. (previously possibly in the neighborhood of 50% Vertebral artery: Flow direction is antegrade. IMPRESSION: 1. By peak systolic velocity criteria, pop bilateral internal carotid artery stenoses may be between 50-69%. However, by grayscale imaging, a stenosis in the order of 50% or less is suggested. 2. Progression of right external carotid artery stenosis, severe. Dictated by: Rory Soto M.D. on 10/11/2020 at 14:39 Approved by: Rory Soto M.D. on 10/11/2020 at 14:51
== END ==
PROVIDERS: PCP Physician Assistant; Referring Provider Physician Assistant; Visit Provider Physician Assistant
DX: I65.23 Occlusion and stenosis of bilateral carotid arteries (principal)
CPT/HCPCS: 93880

== ENCOUNTER → 2021-03-05 07:14 | Outpatient (CLI) | payer MEDICARE, OTHER, SELFPAY ==
[2021-03-05 09:05] LABS: BUN Creatinine Ratio 20.6 (6-22); Blood Urea Nitrogen 29 mg/dL (7-17); Calcium 9.8 mg/dL (8.4-10.2); Carbon Dioxide 23 mmol/L (22-32); Chloride 111 mmol/L (98-107); Cholesterol 172 mg/dL (140-199); Estimated Glomerular Filt Rate 35.6 mL/min (>60); Glucose 96 mg/dL (80-110); HDL Cholesterol 45 mg/dL (40-60); HEMOLYSIS < 15 (0-50); LDL Cholesterol Calculated 107 mg/dL (<100); Potassium 4.1 mmol/L (3.4-5.1); Sodium 137 mmol/L (137-145); Triglycerides 99 mg/dL (35-150)
== END ==
PROVIDERS: PCP Physician Assistant; Referring Provider Internal Medicine Cardiovascular Disease; Visit Provider Internal Medicine Cardiovascular Disease
DX: I10 Essential (primary) hypertension (principal); E78.5 Hyperlipidemia, unspecified
CPT/HCPCS: 36415; 80048; 80061

== ENCOUNTER → 2021-04-01 14:55 | Outpatient (CLI) | payer MEDICARE, OTHER, SELFPAY ==
--- NOTE | 2021-04-01 | DI.MG.S_ITS ---
BILATERAL DIGITAL SCREENING MAMMOGRAM 3D/2D WITH CAD: 04/01/2021 CLINICAL: Routine screening. Family history of breast cancer. Comparison is made to exams dated: 02/16/2020 mammogram, 02/04/2019 mammogram, and 03/06/2016 mammogram - [facility]. There are scattered fibroglandular elements in both breasts. Current study was also evaluated with a Computer Aided Detection (CAD) system. There are benign vascular calcifications in both breasts. There are mole markers on both breasts. No significant masses, calcifications, or other findings are seen in either breast. There has been no significant interval change. IMPRESSION: BENIGN There is no mammographic evidence of malignancy. A 1 year screening mammogram is recommended. This exam was interpreted at Station ID: [id number]. NOTE: For mammograms, a report in lay terms will be sent to the patient. Approximately 15% of breast malignancies will not be visualized mammographically. In the management of a palpable breast mass, a negative mammogram must not discourage biopsy of a clinically suspicious lesion. Electronically Signed By: Dave hurt/pat:04/01/2021 15:46:10 letter sent: Normal Exam ACR BI-RADS Category 2: Benign Finding(s) 3342F
== END ==
PROVIDERS: PCP Physician Assistant; Referring Provider Physician Assistant; Visit Provider Physician Assistant
DX: Z12.31 Encounter for screening mammogram for malignant neoplasm of breast (principal); Z80.3 Family history of malignant neoplasm of breast
CPT/HCPCS: 77063; 77067

== ENCOUNTER → 2021-12-20 07:47 | Outpatient (CLI) | payer MEDICARE, OTHER, SELFPAY ==
[2021-12-20 08:54] LABS: Cholesterol 158 mg/dL (140-199); HDL Cholesterol 51 mg/dL (40-60); LDL Cholesterol Calculated 86 mg/dL (<100); Triglycerides 104 mg/dL (35-150)
== END ==
PROVIDERS: PCP Physician Assistant; Referring Provider Internal Medicine Cardiovascular Disease; Visit Provider Internal Medicine Cardiovascular Disease
DX: E78.5 Hyperlipidemia, unspecified (principal)
CPT/HCPCS: 36415; 80061

== ENCOUNTER 2022-01-08 10:15 | Emergency (ER) | payer MEDICARE, OTHER, SELFPAY ==
[2022-01-08] VITALS (15 sets, daily range): BP systolic 158–188; BP diastolic 69–88; PULSE 51–62; RESP 12–27; TEMP 36.4; O2SAT 93–100
--- NOTE | 2022-01-08 10:18 | ED.GENADULT ---
HPI - General Adult General Chief complaint: Nausea/Vomiting/Diarrhea Stated complaint: NV weakness Time Seen by Provider: 01/08/22 10:15 Source: patient and EMS Mode of arrival: EMS Limitations: no limitations History of Present Illness HPI narrative: Patient is an 86-year-old female who is brought in by EMS for evaluation of onset of nausea and vomiting and diarrhea this morning. Patient also explains she is having week. Also had a syncopal episode this morning related to the vomiting and diarrhea. Prior to the episode she was at a normal state health. Denies chest pain. No shortness of breath. No recent travel. No change in medications. Related Data Home Medications Medication Instructions Recorded Confirmed amlodipine 10 mg tablet 10 mg PO QDAY ##0 05/18/17 12/10/21 aspirin 81 mg tablet,delayed 81 mg PO QDAY ##0 05/19/17 12/10/21 release atorvastatin 40 mg tablet (Lipitor) 40 mg PO HS ##0 05/19/17 12/10/21 carvedilol 25 mg tablet 25 mg PO BID 12/11/17 12/10/21 glucosamine-chondroitin 250 mg-200 2 tab PO QPC 12/11/17 12/10/21 mg tablet (Osteo Bi-Flex) losartan 100 mg tablet 100 mg PO DAILY 12/11/17 12/10/21 magnesium 250 mg tablet 250 mg PO DAILY 12/11/17 12/10/21 terazosin 2 mg capsule 2 mg PO DAILY 12/11/17 12/10/21 vitamin B complex (B Complex 1 1 tab PO DAILY 12/11/17 12/10/21 tablet) warfarin 5 mg tablet 5 mg PO QMWF 12/11/17 12/10/21 Previous Rx's Medication Instructions Recorded oxyquinoline 0.025 %-sodium lauryl See Rx Instructions .Route 11/07/21 sulfate 0.01 % vaginal gel .COMPLEX #113.4 grams (Trimo-Lloyd Jelly) ondansetron 4 mg disintegrating 4 mg PO Q6H PRN nausea and 01/08/22 tablet vomiting #10 tabs sulfamethoxazole 800 1 tab PO Q12H 3 days #6 tabs 01/08/22 mg-trimethoprim 160 mg tablet (Bactrim DS) Allergies Allergy/AdvReac Type Severity Reaction Status Date / Time No Known Drug Allergies Allergy Verified 12/10/21 11:16 Review of Systems Constitutional Constitutional: Reports system reviewed and no additional complaints, except as documented Gastrointestinal Gastrointestinal: Reports system reviewed and no additional complaints, except as documented Genitourinary Genitourinary: Reports system reviewed and no additional complaints, except as documented Musculoskeletal Musculoskeletal: Reports system reviewed and no additional complaints, except as documented Integumentary/Breasts Comments: Skin tear left arm Neurologic Neurologic: Reports system reviewed and no additional complaints, except as documented Hematologic/Lymphatic On Anticoagulants: Yes Patient History Medical History Carpal tunnel syndrome (~2010) Factor 5 Leiden mutation, heterozygous Hearing loss Hypertension (~2004) Kidney disease (~1943) Measles (~194) Pelvic relaxation Vision disorder Surgical History (Updated 01/07/18 @ 22:23 by Sonja Orourke) History of appendectomy (~1957) Social History Smoking Status: Never smoker Smoking Status: Never smoker Substance Use Type: does not use Exam Initial Vital Signs Initial Vital Signs: Vital Signs Pulse Rate 54 L 01/08/22 10:14 Respiratory Rate 19 01/08/22 10:14 Pulse Oximetry 100 01/08/22 10:14 HENMT Head: normal to inspection and normocephalic Resp Effort & Inspection: normal respiratory effort Auscultation: clear to auscultation bilaterally Cardio Rate: regular rate Rhythm: regular rhythm GI Inspection: normal to inspection Palpation: soft and No tender Back/Spine/Pelvis Cervical Spine: No cervical spinal tenderness Skin Other: Superficial skin tear left elbow Neuro General: patient alert, patient awake, patient oriented x3 and moves all extremities Cognition: normal cognition Speech: speech normal Extrem Other: Full range of motion bilateral upper extremities. Pelvis is stable. Lower extremities unremarkable. Course Orders Ordered: ED Orders 01/08/22 10:15 Complete Blood Count AUTO DIFF Stat Comprehensive Metabolic Panel Stat Lipase Stat 01/08/22 10:54 EKG-12 Lead Stat 01/08/22 11:58 GI Panel (Film Array) Stat 01/08/22 13:42 Urine Culture Stat Urine Microscopic Stat Discontinued Medications Sodium Chloride (Normal Saline 0.9%) 1,000 mls @ 500 mls/hr IV BOLUS ONE Stop: 01/08/22 12:17 Last Infusion: 01/08/22 12:20 Dose: 0 mls/hr Documented By: Admin: 01/08/22 11:28 Dose: 500 mls/hr Documented By: SARBJIT Vital Signs Vital signs: Vital Signs - 8 hr 01/08/22 10:28 01/08/22 10:14 01/08/22 10:15 Temperature 97.6 F Pulse Rate 54 L 54 L 51 L Respiratory Rate 16 19 14 Blood Pressure 188/78 H Pulse Oximetry 100 100 100 Oxygen Delivery Method Room Air 01/08/22 10:15 01/08/22 10:30 01/08/22 10:31 Temperature Pulse Rate 55 L 56 L Respiratory Rate 24 21 Blood Pressure 188/78 H Pulse Oximetry 99 99 Oxygen Delivery Method 01/08/22 10:31 01/08/22 10:43 01/08/22 10:43 Temperature Pulse Rate 61 Respiratory Rate 18 Blood Pressure 167/74 H 176/70 H Pulse Oximetry 95 Oxygen Delivery Method 01/08/22 11:00 01/08/22 11:01 01/08/22 11:01 Temperature Pulse Rate 55 L 54 L Respiratory Rate 27 H 16 Blood Pressure 166/71 H Pulse Oximetry 97 98 Oxygen Delivery Method 01/08/22 11:30 01/08/22 11:31 01/08/22 11:31 Temperature Pulse Rate 60 56 L Respiratory Rate 25 H 13 Blood Pressure 162/88 H Pulse Oximetry 98 99 Oxygen Delivery Method 01/08/22 12:00 01/08/22 12:01 01/08/22 12:01 Temperature Pulse Rate 61 62 Respiratory Rate 13 14 Blood Pressure 167/73 H Pulse Oximetry 96 98 Oxygen Delivery Method 01/08/22 12:30 01/08/22 12:30 01/08/22 13:00 Temperature Pulse Rate 62 61 Respiratory Rate 13 13 Blood Pressure 172/72 H Pulse Oximetry 99 93 Oxygen Delivery Method 01/08/22 13:01 01/08/22 13:01 Temperature Pulse Rate 59 L Respiratory Rate 12 Blood Pressure 158/69 H Pulse Oximetry 94 Oxygen Delivery Method Medical Decision Making Lab Data Lab results reviewed: Yes I reviewed the patient's lab results. Result diagrams: 01/08/22 10:15 01/08/22 10:15 Labs: Lab Results 01/08/22 01/08/22 01/08/22 Range/Units 10:15 10:15 11:58 WBC 8.9 (4.5-11.0) X10^3/uL RBC 3.76 L (4.0-5.2) X10^6/uL Hgb 11.9 L (12.0-16.0) g/dL Hct 34.3 L (36-46) % MCV 91.3 (80-100) fL MCH 31.7 (26-34) PG MCHC 34.7 (30-36) % RDW 13.2 (11.6-14.8) % Plt Count 204 (150-400) X10^3/uL Neut % (Auto) 51.2 (50-75) % Lymph % (Auto) 41.7 H (25-40) % Florence % (Auto) 4.8 (3-14) % Eos % (Auto) 1.4 L (2-4) % Baso % (Auto) 0.9 (0-2) % Neut # (Auto) 4600 (1339-4590) /uL Lymph # (Auto) 3700 (9623-6479) /uL Florence # (Auto) 400 (0-900) /uL Eos # (Auto) 100 (0-450) /uL Baso # (Auto) 100 (0-100) /uL Sodium 135 L (137-145) mmol/L Potassium 4.1 (3.4-5.1) mmol/L Chloride 104 (98-107) mmol/L Carbon Dioxide 23 (22-32) mmol/L BUN 23 H (7-17) mg/dL Creatinine 1.36 H (0.52-1.04) mg/dL Estimated GFR 38 L (>60) mL/min BUN/Creatinine Ratio 16.9 (6-22) Glucose 149 H (80-110) mg/dL Calcium 9.9 (8.4-10.2) mg/dL Total Bilirubin 0.5 (0.2-1.3) mg/dL AST 32 (14-36) IU/L ALT 20 (<35) IU/L Alkaline Phosphatase 138 H (38-126) U/L Total Protein 7.3 (6.3-8.2) g/dL Albumin 4.0 (3.5-5.0) g/dL Globulin 3.3 (1.7-4.1) g/dL Albumin/Globulin Ratio 1.2 (1.0-2.8) Lipase 145 (23-300) U/L Stl C. cayetanensis PCR Not detected (Not Detect) Stool Rotavirus (PCR) Not detected (Not Detect) Stool Adenovirus (PCR) Not detected (Not Detect) Stool Astrovirus (PCR) Not detected (Not Detect) Stool Cryptosporidium PCR Not detected (Not Detect) Stl E.coli Shiga Tox PCR Not detected (Not Detect) St Sh/Enteroin Ecoli PCR Not detected (Not Detect) Stool E coli O157 PCR Not Reportable Stl Enterotoxigenic E PCR Not detected (Not Detect) Stool EPEC (PCR) Not detected (Not Detect) Stl E. histolytica PCR Not detected (Not Detect) Stool Giardia Lamblia PCR Not detected (Not Detect) Stool Sapovirus (PCR) Not detected (Not Detect) Stl P. shigelloides PCR Not detected (Not Detect) St Y.enterocolitica PCR Not detected (Not Detect) Stool Vibrio (PCR) Not detected (Not Detect) Stl Vibrio cholerae PCR Not detected (Not Detect) Stl Enteroaggr Ecoli PCR Not detected (Not Detect) Stl Norovirus GI/GII PCR Not detected (Not Detect) Campylobacter (PCR) Not detected (Not Detect) C. difficile Tox (PCR) Not detected (Not Detect) Salmonella (PCR) Not detected (Not Detect) Urine Dip Bedside Urine Glucose Negative Bedside Urine Bilirubin - Negative Bedside Urine Ketone - Negative Urine Specific [place] 1.010 Bedside Urine Occult Blood - Negative Bedside Urine pH 6.0 Bedside Urine Protein - Negative Bedside Urine Urobilinogen - Negative Bedside Urine Nitrite + Positive Bedside Urine Leukocytes + 70 Esterase Point of care testing: Urine Dip Bedside Urine Glucose Negative Bedside Urine Bilirubin - Negative Bedside Urine Ketone - Negative Urine Specific [place] 1.010 Bedside Urine Occult Blood - Negative Bedside Urine pH 6.0 Bedside Urine Protein - Negative Bedside Urine Urobilinogen - Negative Bedside Urine Nitrite + Positive Bedside Urine Leukocytes + 70 Esterase ECG Data Attestation: I personally reviewed and interpreted this ECG as follows: Interpretation: Sinus rhythm Ventricular rate is 62 Normal axis Normal QRS Normal QTC No ST T wave changes MDM Narrative Medical decision making narrative: Patient states she is feeling much better. Is tolerating oral intake. Her workup here in the emergency department is very reassuring. Her urinalysis is nitrite positive. States she does get frequent urinary tract infections. She is not currently having any urinary symptoms. States sulfa normally works for her. Discharged home with nausea medications and sulfa. She was given return precautions. She expressed understanding and agreement. Discharge Plan Departure Patient Disposition: Home Clinical Impression: Nausea, vomiting, and diarrhea, Urinary tract infection Instructions: DI for Urinary Tract Infection (UTI), Nausea and Vomiting-Adult Activity Restrictions/Additional Instructions: Medications were sent to the pharmacy of your choice. Please continue to take all of your medications as directed. Return to the emergency department for any new or worsening symptoms. Prescriptions: New ondansetron 4 mg tablet,disintegrating 4 mg PO Q6H PRN (Reason: nausea and vomiting) Qty: 10 0RF sulfamethoxazole-trimethoprim [Bactrim DS] 800-160 mg tablet 1 tab PO Q12H 3 Days Qty: 6 0RF No Action amlodipine 10 MG tablet 10 mg PO QDAY Qty: 0 atorvastatin [Lipitor] 40 MG tablet 40 mg PO HS Qty: 0 aspirin 81 MG tablet,delayed release (DR/EC) 81 mg PO QDAY Qty: 0 carvedilol 25 mg tablet 25 mg PO BID terazosin 2 mg capsule 2 mg PO DAILY warfarin 5 mg tablet 5 mg PO QMWF vitamin B complex [B Complex 1] tablet 1 tab PO DAILY magnesium 250 mg tablet 250 mg PO DAILY losartan 100 mg tablet 100 mg PO DAILY glucosamine-chondroitin [Osteo Bi-Flex] 250-200 mg tablet 2 tab PO QPC Trimo-Lloyd Jelly 0.025-0.01 % gel See Rx Instructions .ROUTE .COMPLEX Qty: 113.4 3RF Dose Instruction: USE 1 APPLICATOR IN VAGINA WEEKLY Rx Instructions: USE 1 APPLICATOR IN VAGINA WEEKLY Referrals: Lynette Ulloa PA-C [Primary Care Provider] -
[2022-01-08 10:27] LABS: Add Manual Diff / Slide Review NO; Basophils Absolute Auto 100 /uL (0-100); Basophils Percent Auto 0.9 % (0-2); Eosinophils Absolute Auto 100 /uL (0-450); Eosinophils Percent Auto 1.4 % (2-4); Hematocrit 34.3 % (36-46); Hemoglobin 11.9 g/dL (12.0-16.0); Lymphocytes Absolute Auto 3700 /uL (1100-4500); Lymphocytes Percent Auto 41.7 % (25-40); Mean Corpuscular HGB Conc 34.7 % (30-36); Mean Corpuscular Hemoglobin 31.7 PG (26-34); Mean Corpuscular Volume 91.3 fL (80-100); Monocytes Absolute Auto 400 /uL (0-900); Monocytes Percent Auto 4.8 % (3-14); Neutrophils Absolute Auto 4600 /uL (1500-7000); Neutrophils Percent Auto 51.2 % (50-75); Platelet Count 204 X10^3/uL (150-400); Red Blood Cell Count 3.76 X10^6/uL (4.0-5.2); Red Cell Distribution Width 13.2 % (11.6-14.8); White Blood Cell Count 8.9 X10^3/uL (4.5-11.0)
[2022-01-08 10:42] LABS: Alanine Aminotransferase 20 IU/L (<35); Albumin Globulin Ratio 1.2 (1.0-2.8); Alkaline Phosphatase 138 U/L (38-126); Aspartate Aminotransferase 32 IU/L (14-36); BUN Creatinine Ratio 16.9 (6-22); Bilirubin Total 0.5 mg/dL (0.2-1.3); Blood Urea Nitrogen 23 mg/dL (7-17); Calcium 9.9 mg/dL (8.4-10.2); Carbon Dioxide 23 mmol/L (22-32); Chloride 104 mmol/L (98-107); Estimated Glomerular Filt Rate 38 mL/min (>60); Globulin 3.3 g/dL (1.7-4.1); Glucose 149 mg/dL (80-110); HEMOLYSIS 42 (0-50); Lipase 145 U/L (23-300); Potassium 4.1 mmol/L (3.4-5.1); Sodium 135 mmol/L (137-145); Total Protein 7.3 g/dL (6.3-8.2)
[2022-01-08] MEDS: SODIUM CHLORIDE 0.9% 1,000 ML 500 ML IV (11:28)
[2022-01-08 13:41] LABS: Adenovirus F 40/41 Not Detected (Not Detect); Astrovirus Not Detected (Not Detect); Campylobacter Not Detected (Not Detect); Clostridium difficile toxin AB Not Detected (Not Detect); Cryptosporidium Not Detected (Not Detect); Cyclospora cayetanensis Not Detected (Not Detect); Entamoeba histolytica Not Detected (Not Detect); Enteroaggregative E.coli Not Detected (Not Detect); Enteropathogenic E.coli Not Detected (Not Detect); Enterotoxigenic E.coli It/st Not Detected (Not Detect); Giardia lamblia Not Detected (Not Detect); Norovirus GI/GII Not Detected (Not Detect); Plesiomonsa shigelloides Not Detected (Not Detect); Rotavirus A Not Detected (Not Detect); Salmonella Not Detected (Not Detect); Sapovirus Not Detected (Not Detect); Shiga-like toxin-prod E.coli Not Detected (Not Detect); Shigella/Enteroinvasive E.coli Not Detected (Not Detect); Vibrio Not Detected (Not Detect); Vibrio cholerae Not Detected (Not Detect); Yersinia enterocolitica Not Detected (Not Detect)
[2022-01-08 15:02] LABS: Bacteria Urine Many (>30); RBC Urine 0-1/HPF (0-5/HPF); Squamous Epithelial Cell Urine 1-5 /HPF (0-5/HPF); WBC Urine 10-30/HPF (0-5/HPF)
== END 2022-01-08 14:27 | disposition home or self-care (01) ==
PROVIDERS: Emergency Provider Emergency Medicine; PCP Physician Assistant
DX: N39.0 Urinary tract infection, site not specified (principal); R11.2 Nausea with vomiting, unspecified; R19.7 Diarrhea, unspecified; I10 Essential (primary) hypertension
CPT/HCPCS: 80053; 81003; 81015; 83690; 85025; 87077; 87086; 87186; 87507; 93005; 93010; 96360; 99283; 99284

== ENCOUNTER 2022-03-31 06:32 | Day surgery (SDC) | payer MEDICARE, OTHER, SELFPAY ==
[2022-03-26 07:24] VITALS: BMI 22.8
--- NOTE | 2022-03-31 | PATH_ITS ---
[facility] Accession Number: [id number] No. of containers..02 Tissue . 01 Material submitted: . PART A: endocervix - ENDOCERVICAL CURETTINGS PART B: endometrium - ENDOMETRIAL CURETTINGS . 01 Diagnosis: A. Endocervix, Curettage: Portions of inactive endometrium with chronic endometritis and cystic change. Few fragments of inflamed squamous mucosa. A minute strip of benign endocervical epithelium. No evidence of neoplasia, dysplasia, or malignancy. . B. Endometrium, Curettage: Mixed polyp consisting of inactive endometrial glandular epithelium (predominantly) and upper endocervical mucosa/epithelium. Background with chronic endometritis and cystic atrophy. No evidence of endometroid intraepithelial neoplasia, dysplasia or malignancy. [facility] 04/04/2022 1602 Local . 01 Electronically signed: Renu Hernandez MD, Pathologist NPI- [id number] . 01 Gross description: . A. Received in formalin labeled with the patient's name, , and endocervical curettings, and consists of multiple minute bonilla soft tissue fragments admixed with mucoid material aggregating to 0.8 x 0.3 x 0.1 cm. The specimen is filtered into a biopsy bag and submitted entirely in cassette A1. B. Received in formalin labeled with the patient's name, , and endometrial curetting, and consists of multiple bonilla soft tissue fragments admixed with mucohemorrhagic material aggregating to 2.5 x 1.1 x 0.3 cm. The specimen is filtered into a biopsy bag and submitted entirely in cassette B1. ([id number]) /[facility] 04/02/2022 0342 Local . 01 Pathologist provided ICD-10: N71.1, N84.0, N95.0 . 01 CPT . 407873, [id number] Performed at: [facility] [address] [place] [address] [address], [place], [place] [id number] MD Francois Draper MD Phone: [phone]
[2022-03-31 07:04] VITALS: BP 153/56; PULSE 54; RESP 16; TEMP 36.2; O2SAT 99; BMI 23.3
[2022-03-31] MEDS: LACTATED RINGERS 1,000 ML 100 ML IV (07:15)
--- NOTE | 2022-03-31 07:48 | PM.HP.1 ---
History of Present Illness History of Present Illness Date Patient Seen: 03/31/22 Time Patient Seen: 07:48 Chief complaint: SDC Narrative: Patient is an 86-year-old 4 para 4 with postmenopausal bleeding and endometrial hyperplasia, possible endometrial polyp. She presents for a D&C hysteroscopy with possible polypectomy. Patient History Medical History (Updated 03/26/22 @ 07:38 by Monet Carnes RN) Carotid artery stenosis Carpal tunnel syndrome (~2010) Factor 5 Leiden mutation, heterozygous Hearing loss HLD (hyperlipidemia) Hypertension (~2004) Kidney disease (~1943) Kidney disease (194) Measles (~1947) Pelvic relaxation Vision disorder Surgical History (Updated 01/07/18 @ 22:23 by Sonja Orourke) History of appendectomy (~1957) Family & Social History Social History: household members children Tobacco & Substance use: Smoking Status Never smoker alcohol intake never Substance Use Type does not use Meds Home Medications and Allergies Home Medications Medication Instructions Recorded Confirmed Type amlodipine 10 mg tablet 10 mg PO QDAY ##0 05/18/17 03/31/22 History aspirin 81 mg tablet,delayed 81 mg PO QDAY ##0 05/19/17 03/31/22 History release atorvastatin 40 mg tablet (Lipitor) 40 mg PO HS ##0 05/19/17 03/31/22 History carvedilol 25 mg tablet 25 mg PO BID 12/11/17 03/31/22 History glucosamine-chondroitin 250 mg-200 2 tab PO QPC 12/11/17 03/31/22 History mg tablet (Osteo Bi-Flex) losartan 100 mg tablet 100 mg PO DAILY 12/11/17 03/31/22 History magnesium 250 mg tablet 250 mg PO DAILY 12/11/17 03/31/22 History terazosin 2 mg capsule 2 mg PO DAILY 12/11/17 03/31/22 History vitamin B complex (B Complex 1 1 tab PO DAILY 12/11/17 03/31/22 History tablet) warfarin 5 mg tablet 5 mg PO DAILY 12/11/17 03/31/22 History oxyquinoline 0.025 %-sodium lauryl See Rx Instructions .Route 11/07/21 03/31/22 Rx sulfate 0.01 % vaginal gel .COMPLEX #113.4 grams (Trimo-Lloyd Jelly) Allergies Allergy/AdvReac Type Severity Reaction Status Date / Time No Known Drug Allergies Allergy Verified 03/31/22 06:47 Exam Vital Signs (past 8 hours): - 03/31/22 07:04 Temperature 97.2 F L Pulse Rate 54 L Respiratory Rate 16 Blood Pressure 153/56 H Pulse Oximetry 99 Oxygen Delivery Method Room Air Oxygen Delivery Method Room Air Narrative Exam Narrative: HEENT: No thyromegaly, no anterior cervical or supraclavicular lymphadenopathy. Lungs:Clear to auscultation bilaterally, no wheezes. Cardiovascular: Regular rate and rhythm, no murmurs, rubs, or gallops. Abdomen: Well-healed scars. No hepatosplenomegaly. No masses palpable. External genitalia: Normal Vagina: Prolapse Cervix: Normal Bimanual exam: 6 Week size anteverted uterus. Mobile. No adnexal masses or tenderness Extremities: No edema Assessment & Plan Assessment & Plan narrative: Assessment: 86-year-old 4 para 4 with postmenopausal bleeding and endometrial hyperplasia Possible endometrial polyp Plan: D&C hysteroscopy with possible polypectomy The risks, benefits, and alternatives to the procedure were explained to the patient. The risks including bleeding, infection, and uterine perforation. She understands these risks and agrees to proceed. A full par Q was held and consent form was signed. Time Spent With Patient Time with patient: less than 30 minutes Critical Care time: I spent a total of [] minutes of critical care time on this patient's care today; this time is exclusive of procedural time.
--- NOTE | 2022-03-31 07:51 | PM.PREOP ---
Pre-operative Note COVID-19 Criteria for continued procedure: Delay expected to result in less-positive ultimate med/surg outcome Interval Note History & Physical reviewed/Exam performed by Physician: Yes Changes to H&P: No H&P completed within 30 days and has changed as indicated here:: 03/31/22
[2022-03-31 08:37] VITALS: BP 143/49; PULSE 58; RESP 12; TEMP 36.4; O2SAT 98
--- NOTE | 2022-03-31 08:40 | SUR.OPER ---
Lithotomy on padded OR bed, head on pillow, arms secured on padded arm boards at <90 degrees abduction. Legs secured in padded yellow fins stirrups.
[2022-03-31 08:42] VITALS: BP 140/50; PULSE 57; RESP 11; O2SAT 98
[2022-03-31 08:47] VITALS: BP 146/56; PULSE 60; RESP 12; O2SAT 96
[2022-03-31 08:52] VITALS: BP 151/47; PULSE 55; RESP 14; TEMP 36.3; O2SAT 96
--- NOTE | 2022-03-31 08:58 | PM.GYNOP.1 ---
Operative Date/Time/Diagnoses Date of procedure: 03/31/22 Time of procedure: 08:59 Pre-op diagnosis: Postmenopausal bleeding Thickened endometrial lining Post-op diagnosis: same Procedure & Clinicians Procedure: Procedures Operation Date: 03/31/22 07:45 Actual Procedure Side Surgeon p D&C Hysteroscopy, polypectomy Marietta Lee MD Indications: Postmenopausal bleeding Surgeon: Marietta Lee Anesthesia Type: General (LMA) Operative Notes Findings: Six week size anteverted uterus Both fallopian tube ostia observed Third-degree uterine prolapse There was a small polyp near the right fallopian tube ostia There was a broad, raised, lesion in the midbody of the uterus on the posterior wall Closure Type: not applicable Specimen(s): endometrial curettings and other (Endocervical curetting) Estimated blood loss (mL): 5 Blood products transfused: none Procedure in detail: After informed consent was obtained, the patient was taken to the operating room where she was placed in the dorsal supine position. After adequate LMA general anesthesia was achieved, she was placed in the dorsal lithotomy position, and prepped and draped in the usual sterile fashion. A time-out was performed. A bivalve speculum was placed into the vagina and the anterior lip of the cervix was grasped with a single-tooth tenaculum. The cervical os was sequentially dilated to the # 8 Hegar dilator. The hysteroscope passed easily into the endometrial cavity. Both fallopian tube ostia were observed. There was a small polyp near the right fallopian tube ostia. There was a broad raised lesion in the midbody of the uterus posteriorly. This was yellow in color. The hysteroscope was removed. Endocervical curettings were obtained. Sharp curettage was performed in the uterus yielding a large amount of curettings including the posterior lesion and the polyp. The instruments were removed from the uterus. The single-tooth tenaculum was removed from the anterior lip of the cervix. The bivalve speculum was removed from the vagina. Sponge, lap, and instrument counts were correct x2. The patient tolerated the procedure well, and was taken to PACU in stable condition. Complications: none Post-operative Condition: stable Disposition: PACU Plan for aftercare: Home after recovery
[2022-03-31 09:04] VITALS: BP 150/56; PULSE 54; RESP 16; TEMP 36.3; O2SAT 98
== END 2022-03-31 09:11 | disposition home or self-care (01) ==
PROVIDERS: PCP Physician Assistant; Referring Provider Obstetrics & Gynecology; Visit Provider Obstetrics & Gynecology
PROC: 0UDB8ZZ Extraction of Endometrium, Via Natural or Artificial Opening Endoscopic (ICD-10-PCS; CPT 58558; principal; 2022-03-31 07:45)
DX: N71.1 Chronic inflammatory disease of uterus (principal)
CPT/HCPCS: 58558; 85610; J1100; J2405; J2704; J3010

== ENCOUNTER → 2022-05-20 11:51 | Outpatient (ROUT) | payer MEDICARE, OTHER, SELFPAY ==
[2022-05-20 12:03] LABS: Prothrombin Time 22.6 SECONDS (10.1-12.7)
== END ==
PROVIDERS: PCP Physician Assistant; Visit Provider Internal Medicine
DX: I48.91 Unspecified atrial fibrillation (principal)
CPT/HCPCS: 85610

== ENCOUNTER → 2022-06-03 12:15 | Outpatient (ROUT) | payer MEDICARE, OTHER, SELFPAY ==
[2022-06-03 12:40] LABS: Prothrombin Time 34.6 SECONDS (10.1-12.7)
== END ==
PROVIDERS: PCP Physician Assistant; Visit Provider Internal Medicine
DX: I48.91 Unspecified atrial fibrillation (principal)
CPT/HCPCS: 85610

== ENCOUNTER → 2022-06-23 14:01 | Outpatient (ROUT) | payer MEDICARE, OTHER, SELFPAY ==
[2022-06-23 14:15] LABS: INR 3.1 (0.9-1.3); Prothrombin Time 36.4 SECONDS (10.1-12.7)
== END ==
PROVIDERS: PCP Physician Assistant; Visit Provider Internal Medicine
DX: I48.91 Unspecified atrial fibrillation (principal)
CPT/HCPCS: 85610

== ENCOUNTER → 2022-07-03 12:18 | Outpatient (ROUT) | payer MEDICARE, OTHER, SELFPAY ==
[2022-07-03 12:53] LABS: INR 2.5 (0.9-1.3)
== END ==
PROVIDERS: PCP Physician Assistant; Visit Provider Internal Medicine
DX: I48.91 Unspecified atrial fibrillation (principal)
CPT/HCPCS: 85610

== ENCOUNTER → 2022-08-11 16:21 | Outpatient (ROUT) | payer MEDICARE, OTHER, SELFPAY ==
[2022-08-11 16:45] LABS: INR 2.1 (0.9-1.3); Prothrombin Time 24.7 SECONDS (10.1-12.7)
== END ==
PROVIDERS: PCP Internal Medicine; Visit Provider Internal Medicine
DX: I48.91 Unspecified atrial fibrillation (principal)
CPT/HCPCS: 85610

== ENCOUNTER → 2022-09-03 12:00 | Outpatient (ROUT) | payer MEDICARE, OTHER, SELFPAY ==
[2022-09-03 12:07] LABS: INR 1.8 (0.9-1.3); Prothrombin Time 21.1 SECONDS (10.1-12.7)
== END ==
PROVIDERS: PCP Internal Medicine; Visit Provider Internal Medicine
DX: I48.91 Unspecified atrial fibrillation (principal)
CPT/HCPCS: 85610

== ENCOUNTER 2022-09-03 12:46 | Inpatient (IN) | payer MEDICARE, OTHER, SELFPAY ==
[2022-09-03] VITALS (23 sets, daily range): BP systolic 154–226; BP diastolic 51–100; PULSE 54–80; RESP 12–20; TEMP 35.9–36.4; O2SAT 95–100; BMI 23.0; BMI 23.3
--- NOTE | 2022-09-03 13:16 | DI.CT.S_ITS ---
PROCEDURE: CT HEAD/BRAIN WO CON INDICATIONS: HTN with blurred vision TECHNIQUE: Noncontrast 4.5 mm thick angled axial sections acquired from the foramen magnum to the vertex, with coronal and sagittal reformats. For radiation dose reduction, the following was used: automated exposure control, adjustment of mA and/or kV according to patient size. COMPARISON: [facility], CT, CT HEAD/BRAIN WO CON, 04/25/2018, 11:54. FINDINGS: Image quality: Excellent. CSF spaces: Basal cisterns are patent. No extra-axial fluid collections. Ventricles are normal in size and shape. Brain: No midline shift. No intracranial masses or hemorrhage. Delacruz-white matter interface is normal. Moderate cerebral and cerebellar volume loss with multifocal white matter chronic ischemic change noted. Atherosclerotic calcification noted associated with cavernous segments of both internal carotid arteries. Skull and face: Calvarium and visualized facial bones are intact, without suspicious lesions. Sinuses: Visualized sinuses and mastoids are clear. IMPRESSION: Atrophy and chronic ischemic change without intracranial hemorrhage or mass effect Approved by: Aidan Gramajo M.D. on 09/03/2022 at 14:46
[2022-09-03 14:00] LABS: Add Manual Diff / Slide Review NO; Basophils Absolute Auto 0 /uL (0-100); Basophils Percent Auto 0.4 % (0-2); Eosinophils Absolute Auto 100 /uL (0-450); Eosinophils Percent Auto 1.5 % (2-4); Hematocrit 31.8 % (36-46); Hemoglobin 11.1 g/dL (12.0-16.0); Lymphocytes Absolute Auto 2600 /uL (1100-4500); Lymphocytes Percent Auto 39.6 % (25-40); Mean Corpuscular HGB Conc 34.9 % (30-36); Mean Corpuscular Hemoglobin 32.4 PG (26-34); Mean Corpuscular Volume 92.7 fL (80-100); Monocytes Absolute Auto 400 /uL (0-900); Monocytes Percent Auto 6.5 % (3-14); Neutrophils Absolute Auto 3400 /uL (1500-7000); Platelet Count 218 X10^3/uL (150-400); Red Blood Cell Count 3.43 X10^6/uL (4.0-5.2); Red Cell Distribution Width 12.8 % (11.6-14.8); White Blood Cell Count 6.6 X10^3/uL (4.5-11.0)
--- NOTE | 2022-09-03 14:03 | ED_ITS ---
HPI - General Adult General Chief complaint: Hypertension Stated complaint: dr ref/high BP Time Seen by Provider: 09/03/22 13:15 Source: patient Mode of arrival: Ambulatory History of Present Illness HPI narrative: 87-year-old female nonsmoker with history of high blood pressure presents with a chief complaint of some blurring of vision which she had previously attributed to allergies. She was at her primary care office today for what she initially states is a routine visit but does state that she was looking to talk about some nausea and vomiting she had been having. During her check they found her blood pressure to be over 200 which point she was directed to the emergency department for evaluation. She denies headache or chest pain. She has no shortness of breath. She denies extremity numbness, tingling or weakness. She is not dizzy or weak. Related Data Home Medications Medication Instructions Recorded Confirmed amlodipine 10 mg tablet 10 mg PO QDAY ##0 05/18/17 09/03/22 aspirin 81 mg tablet,delayed 81 mg PO QDAY ##0 05/19/17 09/03/22 release atorvastatin 40 mg tablet (Lipitor) 40 mg PO HS ##0 05/19/17 09/03/22 carvedilol 25 mg tablet 25 mg PO BID 12/11/17 09/03/22 glucosamine-chondroitin 250 mg-200 2 tab PO QPC 12/11/17 09/03/22 mg tablet (Osteo Bi-Flex) losartan 100 mg tablet 100 mg PO DAILY 12/11/17 09/03/22 magnesium 250 mg tablet 250 mg PO DAILY 12/11/17 09/03/22 terazosin 2 mg capsule 2 mg PO DAILY 12/11/17 09/03/22 vitamin B complex (B Complex 1 1 tab PO DAILY 12/11/17 09/03/22 tablet) warfarin 5 mg tablet 5 mg PO DAILY 12/11/17 09/03/22 Previous Rx's Medication Instructions Recorded oxyquinoline 0.025 %-sodium lauryl See Rx Instructions .Route 11/07/21 sulfate 0.01 % vaginal gel .COMPLEX #113.4 grams (Trimo-Lloyd Jelly) Allergies Allergy/AdvReac Type Severity Reaction Status Date / Time No Known Drug Allergies Allergy Verified 07/22/22 09:46 Review of Systems Review of Systems Narrative: GENERAL: Denies chills, fatigue, malaise, fever, sweats. HEENT: See HPI RESPIRATORY: Denies dyspnea, cough, wheezing, hemoptysis, sputum. CARDIOVASCULAR: Denies chest pain, palpitations, orthopnea, edema, GASTROINTESTINAL: Denies nausea, vomiting, abdominal pain, diarrhea, constipation, melena. : Denies dysuria, frequency, incontinence, hematuria, urinary retention. MUSCULOSKELETAL: denies weakness, joint pain, or bony pain SKIN: Denies rash, skin lesions, or other NEUROLOGIC: Denies weakness, headache, numbness, change in speech, confusion, seizures, incoordination. PSYCHIATRIC: No concerning psychosocial issues. 12 point review of systems is negative except for those stated above Patient History Medical History Carotid artery stenosis Carpal tunnel syndrome (~2010) Factor 5 Leiden mutation, heterozygous Hearing loss HLD (hyperlipidemia) Hypertension (~2004) Kidney disease (~194) Kidney disease (194) Measles (~1947) Pelvic relaxation Vision disorder Surgical History History of appendectomy (~1957) Social History household members: children Smoking Status: Never smoker alcohol intake: never Smoking Status: Never smoker Substance Use Type: does not use Exam Narrative Exam Narrative: GENERAL: [87] year old patient appears stated age. Well-developed patient, in mild distress. HEAD: Atraumatic. Normocephalic. EYES: Pupils equal round and reactive. Extraocular motions intact. No scleral icterus. No injection or drainage. ENT: Nose without bleeding, purulent drainage. Throat without erythema, tonsillar hypertrophy or exudate. Airway patent. NECK: Trachea midline. Non tender CARDIOVASCULAR: Regular rate and rhythm without murmurs, gallops, or rubs. RESPIRATORY: Clear to auscultation. Breath sounds equal bilaterally. No wheezes, rales, or rhonchi. GASTROINTESTINAL: Abdomen soft, non-tender, nondistended. EXTREMITIES: No edema or joint tenderness. BACK: Nontender without deformity or crepitance. No flank tenderness. NEURO: AOx3. SKIN: No rash or erythema of visible areas Initial Vital Signs Initial Vital Signs: Vital Signs Temperature 97.5 F L 09/03/22 13:02 Respiratory Rate 16 09/03/22 13:02 Pulse Oximetry 98 09/03/22 13:02 Oxygen Delivery Method Room Air 09/03/22 13:02 Course Orders Ordered: Acetaminophen (Acetaminophen 325 Mg Tablet) 650 mg PO Q6H PRN PRN Reason: Fever/Mild Pain (1-3) Hydrocodone Bitart/Acetaminophen (Hydrocodone/Acet 5/325 Tablet) 1 tab PO Q4H PRN PRN Reason: Pain, Moderate (4-6) Amlodipine Besylate (Amlodipine 5 Mg Tablet) 10 mg PO DAILY [facility] Last Admin: 09/03/22 18:08 Dose: Not Given Documented By: HCW Aspirin (Aspirin Ec 81 Mg Tablet) 81 mg PO DAILY [facility] Last Admin: 09/03/22 18:09 Dose: Not Given Documented By: SHONDAW Atorvastatin Calcium (Atorvastatin 20 Mg Tablet) 40 mg PO BEDTIME [facility] Last Admin: 09/03/22 20:07 Dose: 40 mg Documented By: PADMINI Calcium Carbonate (Calcium Carbonate 500 Mg Tab) 1,000 mg PO Q4HR PRN PRN Reason: Dyspepsia Carvedilol (Carvedilol 12.5 Mg Tablet) 25 mg PO BID [facility] Hydralazine HCl (Hydralazine 20 Mg/Ml Vial) 10 mg IV Q6HR PRN PRN Reason: Hypertension (SBP>180mmHg) Hydralazine HCl (Hydralazine 25 Mg Tablet) 25 mg PO QID [facility] Last Admin: 09/03/22 20:07 Dose: 25 mg Documented By: PADMINI Losartan Potassium (Losartan 50 Mg Tablet) 100 mg PO DAILY [facility] Magnesium Oxide (Magnesium Oxide 400 Mg Tablet) 400 mg PO DAILY [facility] Naloxone HCl (Naloxone 0.4 Mg/Ml Vial) 0.2 mg IV Q2MIN PRN PRN Reason: Opiate Reversal Psyllium Hydrophilic Mucilloid (Psyllium Husk 1 Packet) 1 packet PO DAILY PRN PRN Reason: Constipation Last Admin: 09/04/22 02:25 Dose: 1 packet Documented By: PADMINI Terazosin HCl (Terazosin 1 Mg Capsule) 2 mg PO DAILY [facility] Warfarin Sodium (Warfarin 5 Mg Tablet) 5 mg PO DAILY@1700 [facility] Discontinued Medications Carvedilol (Carvedilol 12.5 Mg Tablet) 25 mg PO BID [facility] Carvedilol (Carvedilol 12.5 Mg Tablet) 25 mg PO NOW ONE Stop: 09/03/22 18:16 Last Admin: 09/03/22 18:19 Dose: 25 mg Documented By: HCW Hydralazine HCl (Hydralazine 20 Mg/Ml Vial) 10 mg IV NOW ONE Stop: 09/03/22 14:16 Last Admin: 09/03/22 14:20 Dose: 10 mg Documented By: MERRITTB Hydralazine HCl (Hydralazine 10 Mg Tablet) 20 mg PO NOW ONE Stop: 09/03/22 16:29 Last Admin: 09/03/22 16:49 Dose: 20 mg Documented By: BUDDY Non-Formulary Medication (Glucosamine-Chondroitin [Osteo Bi-Flex]) 2 tab PO QPC [facility] Non-Formulary Medication (Vitamin B Complex [B Complex 1]) 1 tab PO DAILY [facility] Warfarin Protocol (Warfarin Per Pharmacy (Inr 2-3)) 1 [place] [facility] [place] [facility] Warfarin Sodium (Warfarin 5 Mg Tablet) 7.5 mg PO NOW ONE Stop: 09/03/22 18:16 Last Admin: 09/03/22 18:20 Dose: 7.5 mg Documented By: HCW Reevaluation(s) Reevaluation #1: Patient given hydralazine and has improvement of blood pressure to the 160s, she is now asymptomatic. Reevaluation #2: when hydralazine wears off BP back up to 210s and symptoms return Vital Signs Vital signs: Vital Signs - 8 hr 09/03/22 13:02 09/03/22 14:14 09/03/22 13:38 Temperature 97.5 F L Pulse Rate Respiratory Rate 16 Blood Pressure 226/74 H Pulse Oximetry 98 97 Oxygen Delivery Method Room Air 09/03/22 14:00 09/03/22 14:30 09/03/22 14:35 Temperature Pulse Rate 54 L 63 65 Respiratory Rate 13 16 13 Blood Pressure Pulse Oximetry 100 98 98 Oxygen Delivery Method 09/03/22 14:35 09/03/22 14:20 09/03/22 14:42 Temperature Pulse Rate 57 L Respiratory Rate Blood Pressure 195/82 H 226/74 H 176/74 H Pulse Oximetry Oxygen Delivery Method 09/03/22 14:42 09/03/22 14:45 09/03/22 14:45 Temperature Pulse Rate 66 66 Respiratory Rate 12 14 Blood Pressure 168/76 H Pulse Oximetry 98 99 Oxygen Delivery Method 09/03/22 15:00 09/03/22 15:00 09/03/22 15:15 Temperature Pulse Rate 65 68 Respiratory Rate 12 12 Blood Pressure 165/72 H Pulse Oximetry 97 98 Oxygen Delivery Method 09/03/22 15:15 09/03/22 15:30 09/03/22 15:30 Temperature Pulse Rate 72 Respiratory Rate 14 Blood Pressure 167/74 H 165/72 H Pulse Oximetry 97 Oxygen Delivery Method Medical Decision Making Lab Data 09/04/22 04:31 09/04/22 04:31 Labs: Lab Results 09/03/22 09/03/22 Range/Units 13:45 13:45 WBC 6.6 (4.5-11.0) X10^3/uL RBC 3.43 L (4.0-5.2) X10^6/uL Hgb 11.1 L (12.0-16.0) g/dL Hct 31.8 L (36-46) % MCV 92.7 (80-100) fL MCH 32.4 (26-34) PG MCHC 34.9 (30-36) % RDW 12.8 (11.6-14.8) % Plt Count 218 (150-400) X10^3/uL Neut % (Auto) 52.0 (50-75) % Lymph % (Auto) 39.6 (25-40) % [place] % (Auto) 6.5 (3-14) % Eos % (Auto) 1.5 L (2-4) % Baso % (Auto) 0.4 (0-2) % Neut # (Auto) 3400 (0422-6838) /uL Lymph # (Auto) 2600 (7568-7482) /uL [place] # (Auto) 400 (0-900) /uL Eos # (Auto) 100 (0-450) /uL Baso # (Auto) 0 (0-100) /uL Sodium 132 L (137-145) mmol/L Potassium 4.0 (3.4-5.1) mmol/L Chloride 101 (98-107) mmol/L Carbon Dioxide 23 (22-32) mmol/L BUN 27 H (7-17) mg/dL Creatinine 1.39 H (0.52-1.04) mg/dL Estimated GFR 37 L (>60) mL/min BUN/Creatinine Ratio 19.4 (6-22) Glucose 101 (80-110) mg/dL Calcium 9.9 (8.4-10.2) mg/dL Total Bilirubin 0.6 (0.2-1.3) mg/dL AST 38 H (14-36) IU/L ALT 24 (<35) IU/L Alkaline Phosphatase 122 (38-126) U/L Total Creatine Kinase 56 (30-135) U/L Troponin I < 0.012 (0.01-0.034) ng/mL NT-Pro-B Natriuret Pep 573 H (<450) pg/mL Total Protein 6.9 (6.3-8.2) g/dL Albumin 3.9 (3.5-5.0) g/dL Globulin 3.0 (1.7-4.1) g/dL Albumin/Globulin Ratio 1.3 (1.0-2.8) Urine Dip Bedside Urine Glucose Negative Bedside Urine Bilirubin - Negative Bedside Urine Ketone - Negative Urine Specific [place] 1.010 Bedside Urine Occult Blood +/- Bedside Urine pH 6.0 Bedside Urine Protein - Negative Bedside Urine Urobilinogen - Negative Bedside Urine Nitrite - Negative Bedside Urine Leukocytes + 70 Esterase Point of care testing: Urine Dip Bedside Urine Glucose Negative Bedside Urine Bilirubin - Negative Bedside Urine Ketone - Negative Urine Specific [place] 1.010 Bedside Urine Occult Blood +/- Bedside Urine pH 6.0 Bedside Urine Protein - Negative Bedside Urine Urobilinogen - Negative Bedside Urine Nitrite - Negative Bedside Urine Leukocytes + 70 Esterase MDM Narrative Medical decision making narrative: 87-year-old female referred by primary care for evaluation of symptomatic hypertension. She is already on 3 agents and bradycardic at baseline. Labs and imaging are unremarkable. Hydralazine results in BP improvement to the 160s and patient becomes asymptomatic. However, when it wears off she becomes symptomatic again. She will require hospitalization for stabilization of her condition and some alterations in her medication. I have discussed this case with Dr. Massey who is happy to have the patient on her service. Patient understands and agrees with the diagnosis and plan Discharge Plan Departure Patient Disposition: Admitted as Observation Clinical Impression: Hypertension Admit Date/Time: 09/03/22 16:30 Admit Provider: Elizabeth Massey
[2022-09-03 14:11] LABS: Alanine Aminotransferase 24 IU/L (<35); Albumin 3.9 g/dL (3.5-5.0); Albumin Globulin Ratio 1.3 (1.0-2.8); Alkaline Phosphatase 122 U/L (38-126); Aspartate Aminotransferase 38 IU/L (14-36); BUN Creatinine Ratio 19.4 (6-22); Bilirubin Total 0.6 mg/dL (0.2-1.3); Blood Urea Nitrogen 27 mg/dL (7-17); Calcium 9.9 mg/dL (8.4-10.2); Carbon Dioxide 23 mmol/L (22-32); Chloride 101 mmol/L (98-107); Creatine Kinase 56 U/L (30-135); Estimated Glomerular Filt Rate 37 mL/min (>60); Glucose 101 mg/dL (80-110); HEMOLYSIS < 15 (0-50); Sodium 132 mmol/L (137-145); Total Protein 6.9 g/dL (6.3-8.2)
[2022-09-03] MEDS: HYDRALAZINE 20 MG/ML VIAL 10 MG IV (14:20)
[2022-09-03 14:22] LABS: NT-proBNP (BNP-Adult 18+) 573 pg/mL (<450); Troponin I < 0.012 ng/mL (0.01-0.034)
[2022-09-03] MEDS: HYDRALAZINE 10 MG TABLET 20 MG PO (16:49)
--- NOTE | 2022-09-03 18:08 | DI.ECHO.S_ITS ---
[facility]---------+ [facility] +---------+ : : [address] : : : : [id number] : : : : Phone: [phone] Echocardiogram Report + + :Name: FRANK PENNINGTON Study Date: 09/04/2022 Height: 62 in : :[facility] ReadingLocation: Weight: 127 lb : : Gender: Female BSA: 1.6 m2 : :: 1935 Age: 87 yrs BP: 177/56 mmHg: :Reason For Study: Heart Murmur : :Ordering Physician: Shilpa, : :Elizabeth Performed By: Rosalind Samaniego : :Referring: ELIZABETH CARLTON : + + Interpretation Summary 1) Mildly increased left ventricular thickness (concentric) with normal size, normal wall motion, and normal systolic function (EF 65-70%). 2) Normal right ventricular size and function. 3) There is very mild calcific aortic stenosis (mean gradient 7mmHg, valve area 1.8cm2, severity ratio 0.83). 4) Compared to the Echo done 05/19/2017, very mild aortic stenosis is present on this study. Consider repeat echo in 3-5 years for serial monitoring, earlier if clinically indicated. Procedure: A two-dimensional transthoracic echocardiogram with color flow and Doppler was performed. The study quality was technically adequate. Comparison is made with the echocardiogram of 05/19/2017. The patient was in normal sinus rhythm during the exam. Left Ventricle: The left ventricle is normal in size. There is mild concentric left ventricular hypertrophy. Proximal septal thickening is noted. The ejection fraction is estimated to be 65-70%. Left ventricular systolic function appears normal without focal wall motion abnormalities. Diastolic parameters suggest a relaxation abnormality of the left ventricle, consistent with probable normal filling pressures. Right Ventricle: The right ventricle is normal size. The right ventricular systolic function is normal. Atria: The left atrial size is normal. Right atrial size is normal. There is no Doppler evidence for an interatrial shunt. Mitral Valve: The mitral valve leaflets are mildly calcified. There is mild mitral annular calcification. There is no mitral valve stenosis. There is mild mitral regurgitation. Aortic Valve: The aortic valve is trileaflet. There is moderate aortic valve sclerosis. The aortic valve opens well. There is mild aortic stenosis. There is trace aortic regurgitation. Tricuspid Valve: The tricuspid valve is normal. There is no tricuspid stenosis. There is trace tricuspid regurgitation. Pulmonary artery pressures cannot be estimated because of the lack of a measurable TR jet velocity. Pulmonic Valve: The pulmonic valve leaflets are thin and pliable; valve motion is normal. There is no pulmonic valvular stenosis. There is trace pulmonic regurgitation. Great Vessels: The aortic root is normal size. The ascending aorta is normal in size. The pulmonary artery is normal size. The IVC is of normal diameter and collapses greater than 50% with a sniff. This suggests a low right atrial pressure of 3 mm Hg. Pericardium/ Pleura There is a trivial to small pericardial effusion noted. There is no pleural effusion. MMode/2D Measurements & Calculations LVIDd: 4.2 cm LVOT diam: 1.7 cm LVIDs: 1.9 cm Ao root diam: 2.9 cm FS: 56.0 % asc Aorta Diam: 2.9 cm IVSd: 1.6 cm LVPWd: 1.2 cm LV de [place] santos. diameter/BSA (cm/m^2): 2.7 LV sys. diameter/BSA (cm/m^2): 1.2 LA A2 area: 16.6 cm2 RA long axis: 3.9 cm LA A4 area: 16.0 cm2 RA area: 8.4 cm2 LA length (vol): 5.8 cm RA vol: 15.4 ml LA vol: 38.9 ml RA : 9.8 ml/m2 LA vol index: 24.7 ml/m2 RVD1 (basal): 2.9 cm LVLs ap4: 5.3 cm LVLd ap2: 5.9 cm TAPSE_phl: 1.6 cm LVLs ap2: 4.9 cm Doppler Measurements & Calculations Ao V2 max: 170.0 cm/sec LVOT Max Rios: 139.5 cm/sec Ao V2 mean: 128.0 cm/sec LV V1 max P.8 mmHg Ao max P.0 mmHg LV V1 VTI: 35.2 cm Ao mean P.0 mmHg CONNER(I,D): 1.8 cm2 Ao V2 VTI: 42.5 cm CONNER(V,D): 1.8 cm2 sev ratio: 0.83 CONNER indexed to BSA (cm^2/m^2): 1.2 MV E max rios: 124.0 cm/sec PA V2 max: 100.0 cm/sec MV A max rios: 129.0 cm/sec PA V2 mean: 79.7 cm/sec MV E/A: 0.96 PA mean P.0 mmHg Med Peak E' Rios: 3.9 cm/sec PA pr(Accel): 23.2 mmHg E/E' med: 32.0 Lat Peak E' Rios: 5.0 cm/sec E/E' lat: 24.7 E/e' average: 28.3 MV dec time: 0.37 sec SV(LVOT): 77.6 ml AV VR_phl: 0.82 CONNER(VTI)/BSA_phl: 1.1 MV P1/2t-pr_phl: 109.0 msec Reading Physician:09:01 AM
--- NOTE | 2022-09-03 18:09 | DI.US.S_ITS ---
PROCEDURE: US CAROTID DOPPLER BI INDICATIONS: HYPERTENSION, PAD TECHNIQUE: Color and pulse Doppler interrogation was performed of both carotid systems, with image documentation and velocity measurements. COMPARISON: [facility], [place], US CAROTID DOPPLER BI, 10/11/2020, 11:19. FINDINGS: Stenosis calculations are based on SRU (Society of Radiologists in Ultrasound) criteria. Right side: Brachial blood pressure: 154/48 mm Hg. Common carotid artery peak systolic velocity: 116 cm/sec. Internal carotid artery peak systolic velocity: 158 cm/sec. Internal carotid artery end diastolic velocity: 25 cm/sec. External carotid artery peak systolic velocity: 235 cm/sec. ICA/CCA peak systolic ratio: 1.3 . Delacruz scale imaging description: Moderate atherosclerotic plaque Percent internal carotid artery stenosis: 50-69 % Vertebral artery: Flow direction is antegrade. Left side: Brachial blood pressure: 175/50 mm Hg. Common carotid artery peak systolic velocity: 136 cm/sec. Internal carotid artery peak systolic velocity: 136 cm/sec. Internal carotid artery end diastolic velocity: 24 cm/sec. External carotid artery peak systolic velocity: 255 cm/sec. ICA/CCA peak systolic ratio: 1.0 . Delacruz scale imaging description: Moderate atherosclerotic plaque Percent internal carotid artery stenosis: 50-69 %. Vertebral artery: Flow direction is antegrade. IMPRESSION: 1. 50-69 % stenosis of the bilateral internal carotid arteries. 2. Bilateral external carotid artery stenosis. Approved by: Dave Lopez M.D. on 09/04/2022 at 9:12
--- NOTE | 2022-09-03 18:15 | PM.HP.1 ---
History of Present Illness History of Present Illness Date Patient Seen: 09/03/22 Time Patient Seen: 18:15 Date of Onset of Symptoms: 09/03/22 Chief complaint: dr ref/high BP Narrative: This is a very pleasant 87-year-old female who receives primary care through [facility] and presented today for evaluation for diarrhea. She was found have a elevated blood pressure in 210/78 and was referred to the ER. She was found to have no clinical findings normal labs but persistent elevated blood pressure with symptoms of blurry vision. She was given 10 mg of IV hydralazine and had improvement in her symptoms when her blood pressure came down to 160s over 80s. She then had recurrence of her symptoms when fairly quickly her blood pressure escalated to the 200s over 70s. The patient then again had blurry vision. She is no other focal neurologic symptoms and states that she feels good in his in her usual state of health. The patient is on amlodipine 10 mg and Coreg 25 mg twice daily and losartan 100 mg daily and blood pressure last visit was 160/80 but other blood pressures have been 140s over 70s. She does not check her blood pressure on a regular basis. The patient has had UTI recently and was treated with Bactrim and she was also treated with antibiotic per Dr. Campbell for a dermatitis. These symptoms have resolved. Her daughter who is present states that she she is had problems with diarrhea prior to this episode with several different antibiotics. She is however on magnesium and air and rigors. This today. She also ordered as he diff assay which obviously has not been completed. Past medical history: 1. Factor 5 Leiden mutation, heterozygous 2. Carotid artery stenosis, right external carotid artery. Severe. She had ultrasound done in 2020 but no apparent follow-up. She did see a vascular surgeon but we do not have access to this documentation. 3. Hypertension 4. Hyperlipidemia 5. Chronic kidney disease, stage III Allergies no known drug allergies Past surgical history: Appendectomy Health related behavior: Patient has never smoked and does not use alcohol Social history: Patient is a . She is retired. She lives in [facility] with 1 of her sons. Her son yazan came in while I was evaluating her and her daughter Chintan was present as well. Family history: Family members with factor 5 Leiden deficiency and recurrent DVTs No family history of stroke 12 point review of system Negative for any neurologic symptoms. Negative for any double vision. Negative for any unsteady gait or recent falls. Negative for any syncope or presyncope. Negative for any headaches. Negative for any chest pain shortness O breath or lightheadedness dizziness. Negative for any chest pressure. No shortness of breath or exertional dyspnea. No blood in stool. COUNT INCLUDES THE [facility] Medical History Carotid artery stenosis Carpal tunnel syndrome (~2010) Factor 5 Leiden mutation, heterozygous Hearing loss HLD (hyperlipidemia) Hypertension (~2004) Kidney disease (~1943) Kidney disease (1943) Measles (~1947) Pelvic relaxation Vision disorder Surgical History History of appendectomy (~1957) Social History household members: children Smoking Status: Never smoker alcohol intake: never Meds Home Medications and Allergies Home Medications Medication Instructions Recorded Confirmed Type amlodipine 10 mg tablet 10 mg PO QDAY ##0 05/18/17 09/03/22 History aspirin 81 mg tablet,delayed 81 mg PO QDAY ##0 05/19/17 09/03/22 History release atorvastatin 40 mg tablet (Lipitor) 40 mg PO HS ##0 05/19/17 09/03/22 History carvedilol 25 mg tablet 25 mg PO BID 12/11/17 09/03/22 History glucosamine-chondroitin 250 mg-200 2 tab PO QPC 12/11/17 09/03/22 History mg tablet (Osteo Bi-Flex) losartan 100 mg tablet 100 mg PO DAILY 12/11/17 09/03/22 History magnesium 250 mg tablet 250 mg PO DAILY 12/11/17 09/03/22 History terazosin 2 mg capsule 2 mg PO DAILY 12/11/17 09/03/22 History vitamin B complex (B Complex 1 1 tab PO DAILY 12/11/17 09/03/22 History tablet) warfarin 5 mg tablet 5 mg PO DAILY 12/11/17 09/03/22 History oxyquinoline 0.025 %-sodium lauryl See Rx Instructions .Route 11/07/21 09/03/22 Rx sulfate 0.01 % vaginal gel .COMPLEX #113.4 grams (Trimo-Lloyd Jelly) Allergies Allergy/AdvReac Type Severity Reaction Status Date / Time No Known Drug Allergies Allergy Verified 07/22/22 09:46 Exam Vital Signs (past 8 hours): - 09/03/22 13:02 09/03/22 14:14 09/03/22 13:38 Temperature 97.5 F L Pulse Rate Respiratory Rate 16 Blood Pressure 226/74 H Pulse Oximetry 98 97 Oxygen Delivery Method Room Air 09/03/22 14:00 09/03/22 14:30 09/03/22 14:35 Temperature Pulse Rate 54 L 63 65 Respiratory Rate 13 16 13 Blood Pressure Pulse Oximetry 100 98 98 Oxygen Delivery Method 09/03/22 14:35 09/03/22 14:20 09/03/22 14:42 Temperature Pulse Rate 57 L Respiratory Rate Blood Pressure 195/82 H 226/74 H 176/74 H Pulse Oximetry Oxygen Delivery Method 09/03/22 14:42 09/03/22 14:45 09/03/22 14:45 Temperature Pulse Rate 66 66 Respiratory Rate 12 14 Blood Pressure 168/76 H Pulse Oximetry 98 99 Oxygen Delivery Method 09/03/22 15:00 09/03/22 15:00 09/03/22 15:15 Temperature Pulse Rate 65 68 Respiratory Rate 12 12 Blood Pressure 165/72 H Pulse Oximetry 97 98 Oxygen Delivery Method 09/03/22 15:15 09/03/22 15:30 09/03/22 15:30 Temperature Pulse Rate 72 Respiratory Rate 14 Blood Pressure 167/74 H 165/72 H Pulse Oximetry 97 Oxygen Delivery Method 09/03/22 15:46 09/03/22 15:46 09/03/22 16:00 Temperature Pulse Rate 80 Respiratory Rate 20 Blood Pressure 216/100 H 178/75 H Pulse Oximetry 98 Oxygen Delivery Method 09/03/22 16:00 09/03/22 16:16 09/03/22 16:16 Temperature Pulse Rate 69 72 Respiratory Rate 14 13 Blood Pressure 204/83 H Pulse Oximetry 98 98 Oxygen Delivery Method 09/03/22 16:31 09/03/22 16:49 09/03/22 16:30 Temperature Pulse Rate 74 77 69 Respiratory Rate 14 Blood Pressure 199/92 H 202/83 H Pulse Oximetry 97 Oxygen Delivery Method 09/03/22 16:31 09/03/22 16:31 09/03/22 16:45 Temperature Pulse Rate 72 73 Respiratory Rate 17 13 Blood Pressure 199/92 H Pulse Oximetry 97 98 Oxygen Delivery Method 09/03/22 16:45 09/03/22 17:00 09/03/22 17:00 Temperature Pulse Rate 68 Respiratory Rate 13 Blood Pressure 202/83 H 199/83 H Pulse Oximetry 98 Oxygen Delivery Method Oxygen Delivery Method Room Air Narrative Exam Narrative: This is a very pleasant 87-year-old female who appears much younger than her stated age and is an excellent historian. She is able to answer questions with accuracy Vital signs are stable except for blood pressure 199/83 HEENT is unremarkable: No mucosal lesions, mucous membranes moist and pink. No facial asymmetry. Pupils equal round reactive to light, extraocular movements intact Neck: Supple without adenopathy or thyromegaly or jugular venous distention but bilateral carotid bruits right greater than left. Chest: Clear to auscultation without wheezes rhonchi or crackles Cor: Regular rate and rhythm with a 2 to 3/6 systolic ejection murmur heard loudest at the left upper sternal border possibly radiating to the left carotid versus carotid bruit Abdomen: Positive bowel sounds, soft, nontender, nondistended, no hepatosplenomegaly Extremities: No edema, pulses intact Neurologic exam is nonfocal cranial nerves 2-12 are grossly intact Skin no rash Objective Labs 09/03/22 13:45 09/03/22 13:45 Labs: Laboratory Results - last 24 hr 09/03/22 09/03/22 13:45 13:45 WBC 6.6 RBC 3.43 L Hgb 11.1 L Hct 31.8 L MCV 92.7 MCH 32.4 MCHC 34.9 RDW 12.8 Plt Count 218 Neut % (Auto) 52.0 Lymph % (Auto) 39.6 [place] % (Auto) 6.5 Eos % (Auto) 1.5 L Baso % (Auto) 0.4 Neut # (Auto) 3400 Lymph # (Auto) 2600 [place] # (Auto) 400 Eos # (Auto) 100 Baso # (Auto) 0 Sodium 132 L Potassium 4.0 Chloride 101 Carbon Dioxide 23 BUN 27 H Creatinine 1.39 H Estimated GFR 37 L BUN/Creatinine Ratio 19.4 Glucose 101 Calcium 9.9 Total Bilirubin 0.6 AST 38 H ALT 24 Alkaline Phosphatase 122 Total Creatine Kinase 56 Troponin I < 0.012 NT-Pro-B Natriuret Pep 573 H Total Protein 6.9 Albumin 3.9 Globulin 3.0 Albumin/Globulin Ratio 1.3 Assessment & Plan Assessment & Plan narrative: 87-year-old female admitted with malignant hypertension of unclear etiology with normal findings on labs and appears to be fairly asymptomatic other than blurry vision. Plan: Will admit to the hospital for further treatment and monitoring. Anticipate 2 overnight stays due to comorbidities and current admitting diagnosis. CT scan of head initially showed no abnormalities. We will continue outpatient Coreg 25 mg twice daily, amlodipine 10 mg daily and losartan 100 mg daily. Patient had good response to hydralazine so we will go ahead and continue with that but change to oral and do 25 mg 4 times daily. We will add hydralazine 10 mg IV as needed for systolic blood pressure greater than 180. I think the next step is probably nitro paste if this does not cover her blood pressure. We will do echo and carotid Doppler tomorrow. Assessment 2. Cardiac murmur Plan: Will go ahead and do a echo Assessment 3. History of peripheral arterial disease with no clear evidence of imaging since 2020. I doubt that this is contributing causing her hypertension but we will repeat carotid arterial Doppler tomorrow. Will continue with the baby aspirin and will continue with attempt to control blood pressure Assessment 4. Chronic kidney disease appears improved Plan: Will go ahead and monitor Assessment 5. Factor 5 Leiden deficiency Plan: Continue on warfarin. Will do warfarin per pharmacy protocol. She was low today in the ER and we will go ahead and give a dose tonight and switch her to a.m. dosing tomorrow. She does not require DVT prophylaxis due to warfarin Assessment 6. History of anemia. This is chronic and felt to be probably chronic disease in his stable Plan will recheck labs in morning. DVT prophylaxis: On Coumadin Disposition: Anticipate discharge home likely will need 2 overnight stays to get her blood pressure under control. Code status is DNR 77 minutes was spent with patient in discussing with ER physician and nursing staff and meeting with patient and her daughter and son and reviewing the workup thus far her past medical history in the plan. As also included documentation Quality VTE Deep Vein Thrombosis/Pulmonary Embolism Present on Admission: No
[2022-09-03] MEDS: carvediloL 12.5 MG TABLET 25 MG PO (18:19)
[2022-09-03] MEDS: WARFARIN 5 MG TABLET 7.5 MG PO (18:20)
[2022-09-03] MEDS: HYDRALAZINE 25 MG TABLET PO (20:07)
[2022-09-03] MEDS: ATORVASTATIN 20 MG TABLET 40 MG PO (20:07)
[2022-09-04] VITALS (8 sets, daily range): BP systolic 127–197; BP diastolic 44–58; PULSE 61–77; RESP 15–18; TEMP 35.9–37.2; O2SAT 96–97
[2022-09-04] MEDS: PSYLLIUM HUSK 1 PACKET PO (02:25)
[2022-09-04 04:56] LABS: INR 1.8 (0.9-1.3)
[2022-09-04 05:00] LABS: Add Manual Diff / Slide Review NO; Basophils Absolute Auto 0 /uL (0-100); Basophils Percent Auto 0.6 % (0-2); Eosinophils Absolute Auto 100 /uL (0-450); Eosinophils Percent Auto 1.9 % (2-4); Lymphocytes Absolute Auto 1900 /uL (1100-4500); Lymphocytes Percent Auto 26.9 % (25-40); Mean Corpuscular HGB Conc 35.4 % (30-36); Mean Corpuscular Hemoglobin 32.4 PG (26-34); Mean Corpuscular Volume 91.7 fL (80-100); Monocytes Absolute Auto 400 /uL (0-900); Monocytes Percent Auto 5.9 % (3-14); Neutrophils Absolute Auto 4500 /uL (1500-7000); Neutrophils Percent Auto 64.7 % (50-75); Platelet Count 220 X10^3/uL (150-400); Red Blood Cell Count 3.38 X10^6/uL (4.0-5.2); Red Cell Distribution Width 12.6 % (11.6-14.8); White Blood Cell Count 6.9 X10^3/uL (4.5-11.0)
[2022-09-04 05:11] LABS: Alanine Aminotransferase 22 IU/L (<35); Albumin 3.4 g/dL (3.5-5.0); Albumin Globulin Ratio 1.2 (1.0-2.8); Alkaline Phosphatase 102 U/L (38-126); Aspartate Aminotransferase 30 IU/L (14-36); BUN Creatinine Ratio 22.8 (6-22); Bilirubin Total 0.4 mg/dL (0.2-1.3); Blood Urea Nitrogen 33 mg/dL (7-17); Calcium 9.8 mg/dL (8.4-10.2); Carbon Dioxide 22 mmol/L (22-32); Chloride 100 mmol/L (98-107); Estimated Glomerular Filt Rate 35 mL/min (>60); Globulin 2.9 g/dL (1.7-4.1); Glucose 133 mg/dL (80-110); HEMOLYSIS < 15 (0-50); Sodium 129 mmol/L (137-145); Total Protein 6.3 g/dL (6.3-8.2)
--- NOTE | 2022-09-04 08:56 | PM.PN.1 ---
Subjective Subjective Date Patient Seen: 09/04/22 Time Patient Seen: 08:57 Interval history: Pt had uneventful night eating breakfast ambulating going to bathroom has not had bowel movement since given Imodium but generally feels fine no more blurry vision episodes blood pressure remains consistently high today however I do note a brachial mismatch seems to be some confusion this morning her left arm has a systolic pressure more than 20 points over her right this seems to be consistent with several other measurements however night nurse apparently reported that right arm was higher than left will continue to monitor echo and carotid ultrasounds obtained read pending. We will start hydrochlorothiazide today and wait for report Exam Vital Signs (past 8 hours): - 09/04/22 04:00 09/04/22 08:00 Temperature 97.5 F L 98.9 F .Pulse Rate 77 61 Respiratory Rate 18 15 Blood Pressure 177/56 H 180/44 H Pulse Oximetry 96 97 Oxygen Flow Rate 0 0 Oxygen Delivery Method Room Air Oxygen Flow Rate 0 Narrative Exam Narrative: pleasant alert elder sitting in bed getting carotid scan Objective Labs 09/04/22 04:31 09/04/22 04:31 Labs: Laboratory Results - last 24 hr 09/03/22 09/03/22 09/04/22 13:45 13:45 04:31 WBC 6.6 6.9 RBC 3.43 L 3.38 L Hgb 11.1 L 11.0 L Hct 31.8 L 31.0 L MCV 92.7 91.7 MCH 32.4 32.4 MCHC 34.9 35.4 RDW 12.8 12.6 Plt Count 218 220 Neut % (Auto) 52.0 64.7 Lymph % (Auto) 39.6 26.9 [place] % (Auto) 6.5 5.9 Eos % (Auto) 1.5 L 1.9 L Baso % (Auto) 0.4 0.6 Neut # (Auto) 3400 4500 Lymph # (Auto) 2600 1900 [place] # (Auto) 400 400 Eos # (Auto) 100 100 Baso # (Auto) 0 0 PT INR Sodium 132 L Potassium 4.0 Chloride 101 Carbon Dioxide 23 BUN 27 H Creatinine 1.39 H Estimated GFR 37 L BUN/Creatinine Ratio 19.4 Glucose 101 Calcium 9.9 Total Bilirubin 0.6 AST 38 H ALT 24 Alkaline Phosphatase 122 Total Creatine Kinase 56 Troponin I < 0.012 NT-Pro-B Natriuret Pep 573 H Total Protein 6.9 Albumin 3.9 Globulin 3.0 Albumin/Globulin Ratio 1.3 09/04/22 09/04/22 04:31 04:31 WBC RBC Hgb Hct MCV MCH MCHC RDW Plt Count Neut % (Auto) Lymph % (Auto) [place] % (Auto) Eos % (Auto) Baso % (Auto) Neut # (Auto) Lymph # (Auto) [place] # (Auto) Eos # (Auto) Baso # (Auto) PT 21.0 H INR 1.8 H Sodium 129 L Potassium 4.0 Chloride 100 Carbon Dioxide 22 BUN 33 H Creatinine 1.45 H Estimated GFR 35 L BUN/Creatinine Ratio 22.8 H Glucose 133 H Calcium 9.8 Total Bilirubin 0.4 AST 30 ALT 22 Alkaline Phosphatase 102 Total Creatine Kinase Troponin I NT-Pro-B Natriuret Pep Total Protein 6.3 Albumin 3.4 L Globulin 2.9 Albumin/Globulin Ratio 1.2 PFSH Medical History Carotid artery stenosis Carpal tunnel syndrome (~2010) Factor 5 Leiden mutation, heterozygous Hearing loss HLD (hyperlipidemia) Hypertension (~2004) Kidney disease (~1943) Kidney disease (194) Measles (~194) Pelvic relaxation Vision disorder Surgical History History of appendectomy (~1957) Social History household members: children Smoking Status: Never smoker alcohol intake: never Assessment & Plan Assessment & Plan narrative: 87-year-old female admitted with malignant hypertension of unclear etiology with normal findings on labs and appears to be fairly asymptomatic other than blurry vision. #Hypertensive crisis continue home meds start thiazide with prn hydralazine monitor # systolic cardiac murmur #hx of PAD #blood pressure brachial mismatch echo and carotid dopplers pending #CKD3b stable compared to outpt labs #Factor 5 Leiden deficiency Continue on warfarin per pharmacy protocol. a.m. dosing today. #History of anemia.? stable monitor DVT prophylaxis:? On Coumadin Disposition: Anticipate discharge home likely will need 2 overnight stays to get her blood pressure under control. Diet: regular no added salt Code status is DNR MDM: Son Quality VTE Deep Vein Thrombosis/Pulmonary Embolism Present on Admission: No
[2022-09-04] MEDS: AMLODIPINE 5 MG TABLET 10 MG PO (10:08)
[2022-09-04] MEDS: hydroCHLOROthiazide 25 MG TABLET PO (10:08)
[2022-09-04] MEDS: HYDRALAZINE 25 MG TABLET PO ×2 (10:09→14:43)
[2022-09-04] MEDS: ASPIRIN EC 81 MG TABLET PO (10:09)
[2022-09-04] MEDS: LOSARTAN 50 MG TABLET 100 MG PO (10:09)
--- NOTE | 2022-09-04 14:41 | P.DS_ITS ---
History of Present Illness History of Present Illness Date Patient Seen: 09/04/22 Time Patient Seen: 15:30 Date of Onset of Symptoms: 09/04/22 Chief complaint: dr ref/high BP Narrative: CC: blood pressure too high Pt did well overnight and today - Blood pressure stabilized with some tweaking of oral meds and addition of hydralazine she feels good she is eating drinking ambulating using bathroom fine denies pain etc - no more blurry vision feels ok to go home and f/up as outpt Discharge Providers Provider Date of admission: 09/03/22 16:30 Discharge Date: 09/04/22 Primary care physician: RAMÍREZ Thomas Discharge provider: Dago Ponce MD Summary Hospital Course Discharge Diagnosis: #malignant hypertension #Hyponatremia #carotid stenosis, more than 50%, bilateral #systolic murmur #CKD3b, stable #Factor 5 Leiden deficiency Hospital Course: 87-year-old female admitted from clinic via ED with malignant hypertension of unclear etiology with blurry vision systolic over 200 despite compliance with medications. CT scan of head reassuring, echo and carotid showed some advancement of carotid stenosis but not to a severe degree. There was also some note made of a brachial differential in her blood pressure with inconsistent laterality. Regardless, her hypertensive emergency resolved with adjustment to her oral medications. She will likely need to follow up with vascular as an outpatient with close follow up on blood pressure in clinic. Of note, although patient did not note any dysuria, her outpatient clinic lab urinalysis came back suspicious for a possible UTI after her discharge. My office will follow up with her and see if treatment is indicated rakan. Status at Discharge Cognitive/behavioral status at discharge: at baseline, oriented Functional status at discharge: independent ambulation Overall status at discharge: patient is back to baseline Exam Vital Signs (past 8 hours): - 09/04/22 08:00 09/04/22 08:58 09/04/22 08:59 Temperature 98.9 F Pulse Rate 61 67 67 Respiratory Rate 15 Blood Pressure 180/44 H 197/57 H 175/58 H Pulse Oximetry 97 Oxygen Delivery Method Oxygen Flow Rate 0 09/04/22 10:09 09/04/22 10:09 09/04/22 09:30 Temperature Pulse Rate 67 67 Respiratory Rate Blood Pressure 175/58 H 175/58 H Pulse Oximetry Oxygen Delivery Method Room Air Oxygen Flow Rate 09/04/22 12:00 Temperature 96.9 F L Pulse Rate 65 Respiratory Rate 16 Blood Pressure 136/49 L Pulse Oximetry 97 Oxygen Delivery Method Oxygen Flow Rate 0 Oxygen Delivery Method Room Air Oxygen Flow Rate 0 Narrative Exam Narrative: alert cheerful elder in bed Const General: cooperative, healthy appearing, comfortable, well developed and well groomed [facility] Head: normal to inspection, normocephalic and atraumatic Eyes General: appearance normal, both eyes and all related structures Resp Auscultation: clear to auscultation bilaterally Cardio Rate: regular rate Rhythm: regular rhythm Heart Sounds: S1 normal and S2 normal Other: mild systolic ejection murmur GI Palpation: soft and No tender Auscultation: normal bowel sounds Neuro General: patient alert, patient awake, patient oriented x3, moves all extr emities and no focal motor deficits Extrem General: no pedal edema Objective Labs 09/04/22 04:31 09/04/22 04:31 Labs: Laboratory Results - last 24 hr 09/04/22 09/04/22 09/04/22 04:31 04:31 04:31 WBC 6.9 RBC 3.38 L Hgb 11.0 L Hct 31.0 L MCV 91.7 MCH 32.4 MCHC 35.4 RDW 12.6 Plt Count 220 Neut % (Auto) 64.7 Lymph % (Auto) 26.9 [place] % (Auto) 5.9 Eos % (Auto) 1.9 L Baso % (Auto) 0.6 Neut # (Auto) 4500 Lymph # (Auto) 1900 [place] # (Auto) 400 Eos # (Auto) 100 Baso # (Auto) 0 PT 21.0 H INR 1.8 H Sodium 129 L Potassium 4.0 Chloride 100 Carbon Dioxide 22 BUN 33 H Creatinine 1.45 H Estimated GFR 35 L BUN/Creatinine Ratio 22.8 H Glucose 133 H Calcium 9.8 Total Bilirubin 0.4 AST 30 ALT 22 Alkaline Phosphatase 102 Total Protein 6.3 Albumin 3.4 L Globulin 2.9 Albumin/Globulin Ratio 1.2 PFSH Medical History Carotid artery stenosis Carpal tunnel syndrome (~2010) Factor 5 Leiden mutation, heterozygous Hearing loss HLD (hyperlipidemia) Hypertension (~2004) Kidney disease (~194) Kidney disease (194) Measles (~1947) Pelvic relaxation Vision disorder Surgical History History of appendectomy (~1957) Social History household members: children Smoking Status: Never smoker alcohol intake: never Discharge Assessment & Plan Assessment and Plan Assessment: #malignant hypertension resolved today, continue altered med list with amlodipine losartan HCTZ and hydralazine oral regimen on discharge. F/up as outpt. #Hyponatremia improving with nutrition, f/up as outpt #carotid stenosis, more than 50%, bilateral does appear to have advanced since last study and may be contriubting factor - will likely need to f/up as outpt. #systolic murmur echo today reassuring, aortic cross section more than 1 cm sq, f/up as outpt #CKD3b, stable hydrate and monitor #Factor 5 Leiden deficiency no hx of clot, stable on warfarin, continue DVT prophylaxis:? On Coumadin Disposition: dc home to f/up as outpt Code status is DNR time spent:45 minutes Discharge Plan Discharge Plan Patient Disposition: Home Discharge orders & Medications Prescriptions: New hydralazine 25 mg Tablet 25 mg PO QID Qty: 120 0RF hydrochlorothiazide 25 mg Tablet 25 mg PO DAILY Qty: 30 0RF Continued amlodipine 10 MG tablet 10 mg PO QDAY Qty: 0 atorvastatin [Lipitor] 40 MG tablet 20 mg PO HS Qty: 0 aspirin 81 MG tablet,delayed release (DR/EC) 81 mg PO QDAY Qty: 0 terazosin 2 mg capsule 2 mg PO DAILY Patient Comments: takes in evening warfarin 5 mg tablet 5 mg PO DAILY Rx Instructions: 2.5 mg on Thursday magnesium 250 mg tablet 500 mg PO DAILY losartan 100 mg tablet 100 mg PO DAILY L-Lysine 800 mg tablet 800 mg PO DAILY selenium 200 mcg tablet 100 mcg PO DAILY zinc 50 mcg tablet 50 mcg PO DAILY Vitamin C 1,000 mcg tablet 1,000 mcg PO DAILY quercetin tablet 1 tab PO DAILY Discontinued chlorthalidone 25 mg tablet 12.5 mg PO DAILY Follow up/Referrals: Yoanna Hernandez ARNP [Primary Care Provider] - Visit Report/Discharge Packet Instructions: How to Prevent Falls Stand Alone Forms: Patient Portal/API, Stroke Signs & Symptoms Discharge Data Primary Care Provider: Yoanna Hernandez Discharges patient from system. Discharge Date/Time: 09/04/22 15:52 Quality VTE Deep Vein Thrombosis/Pulmonary Embolism Present on Admission: No
--- NOTE | 2022-09-04 14:44 | CM.DANOTE ---
Initial DCP Assessment Note Pt is an 87 yo female, resident of [place], presents to the ED with persistent diarrhea, high BP and admitted r/t hyponatremia and management of high BP Patient feeling much better and eager to return home today PCP: Yoanna Hernandez Payer: WILDER/Darell Reviewed chart, met with patient to introduce self and role. Patient is indp and active at baseline, son Benjie lives with patient and daughter Shaun and son Esteban live near. Piyush Waldrop currently out of town but other adult children available to assist as needed Patient is back to her functional baseline No barriers identified at this time to patient's safe discharge home w/family to assist; close outpatient f/u recommended. LANNY Acuna Discharge Planning/Care Management CM Discharge Assessment Start: 09/04/22 14:42 Freq: Status: Active Protocol: Document 09/04/22 14:43 DANNI (Rec: 09/04/22 14:44 DANNI [id number]) Discharge Planning Assessment Assigned Media Analyst LANNY August DPOA/Assigned Designee Name luana Skinner Contact Information [phone] Advance Directives? Yes Advance Directives on File No History Provided By Patient,Medical Record Prior Living Arrangements House Household Members children Type of transporation used prior to Relies on Others admit Independent with ADL's Yes Is patient alert and oriented? Yes Barriers to Discharge No Comment Home w/family Discharge Plan Home Transportation Arrangement Family Referrals Initiated None needed
--- NOTE | 2022-09-04 15:50 | PC.NURSE ---
Pt discharged home at 1545, escorted off floor in wheelchair accompanied by hospital staff. IV removed, discharge teaching provided including new medications, follow up appointment and worsening symptoms. Questions answered. Patient left the floor with all belongings.
== END 2022-09-04 15:52 | disposition home or self-care (01) | DRG 683 ==
LOC: ED 13:15 → AC 17:10
PROVIDERS: Admitting Provider Family Medicine; Emergency Provider Emergency Medicine; PCP Internal Medicine; Referring Provider Emergency Medicine; Visit Provider Family Medicine
DX: I12.9 Hypertensive chronic kidney disease with stage 1 through stage 4 chronic kidney disease, or unspecified chronic kidney disease (principal); D68.51 Activated protein C resistance; E87.1 Hypo-osmolality and hyponatremia; R19.7 Diarrhea, unspecified; R01.1 Cardiac murmur, unspecified; I65.23 Occlusion and stenosis of bilateral carotid arteries; N18.32 Chronic kidney disease, stage 3b; E78.5 Hyperlipidemia, unspecified; Z79.01 Long term (current) use of anticoagulants; Z66 Do not resuscitate; I48.91 Unspecified atrial fibrillation
CPT/HCPCS: 36415; 70450; 80053; 81003; 82550; 83880; 84484; 85025; 85610; 93306; 93880; 96374; 99284; J0360

== ENCOUNTER → 2022-09-15 12:01 | Outpatient (ROUT) | payer MEDICARE, OTHER, SELFPAY ==
[2022-09-03 17:23] VITALS: BMI 23.3
[2022-09-15 12:10] LABS: INR 1.2 (0.9-1.3); Prothrombin Time 13.5 SECONDS (10.1-12.7)
== END ==
PROVIDERS: PCP Internal Medicine; Visit Provider Internal Medicine
DX: I48.91 Unspecified atrial fibrillation (principal)
CPT/HCPCS: 85610

== ENCOUNTER → 2022-09-24 11:10 | Outpatient (ROUT) | payer MEDICARE, OTHER, SELFPAY ==
[2022-09-03 17:23] VITALS: BMI 23.3
[2022-09-24 11:50] LABS: INR 1.3 (0.9-1.3); Prothrombin Time 15.3 SECONDS (10.1-12.7)
== END ==
PROVIDERS: PCP Internal Medicine; Visit Provider Internal Medicine
DX: I48.91 Unspecified atrial fibrillation (principal)
CPT/HCPCS: 85610

== ENCOUNTER → 2022-10-03 11:32 | Outpatient (ROUT) | payer MEDICARE, OTHER, SELFPAY ==
[2022-09-03 17:23] VITALS: BMI 23.3
[2022-10-03 11:52] LABS: Prothrombin Time 58.2 SECONDS (10.1-12.7)
== END ==
PROVIDERS: PCP Internal Medicine; Visit Provider Internal Medicine
DX: I48.91 Unspecified atrial fibrillation (principal)
CPT/HCPCS: 85610

== ENCOUNTER → 2022-10-06 14:29 | Outpatient (ROUT) | payer MEDICARE, OTHER, SELFPAY ==
[2022-09-03 17:23] VITALS: BMI 23.3
[2022-10-06 14:55] LABS: INR 1.6 (0.9-1.3); Prothrombin Time 18.2 SECONDS (10.1-12.7)
== END ==
PROVIDERS: PCP Internal Medicine; Visit Provider Internal Medicine
DX: I48.91 Unspecified atrial fibrillation (principal)
CPT/HCPCS: 85610

== ENCOUNTER → 2022-10-13 10:43 | Outpatient (ROUT) | payer MEDICARE, OTHER, SELFPAY ==
[2022-09-03 17:23] VITALS: BMI 23.3
[2022-10-13 10:56] LABS: INR 3.4 (0.9-1.3); Prothrombin Time 39.3 SECONDS (10.1-12.7)
== END ==
PROVIDERS: PCP Internal Medicine; Visit Provider Internal Medicine
DX: I48.91 Unspecified atrial fibrillation (principal)
CPT/HCPCS: 85610

== ENCOUNTER → 2022-10-20 14:07 | Outpatient (ROUT) | payer MEDICARE, OTHER, SELFPAY ==
[2022-09-03 17:23] VITALS: BMI 23.3
[2022-10-20 14:30] LABS: INR 2.2 (0.9-1.3)
== END ==
PROVIDERS: PCP Internal Medicine; Visit Provider Internal Medicine
DX: I48.91 Unspecified atrial fibrillation (principal)
CPT/HCPCS: 85610

== ENCOUNTER → 2022-11-04 14:34 | Outpatient (ROUT) | payer MEDICARE, OTHER, SELFPAY ==
[2022-09-03 17:23] VITALS: BMI 23.3
[2022-11-04 14:47] LABS: INR 2.3 (0.9-1.3); Prothrombin Time 26.3 SECONDS (10.1-12.7)
== END ==
PROVIDERS: PCP Internal Medicine; Visit Provider Internal Medicine
DX: I48.91 Unspecified atrial fibrillation (principal)
CPT/HCPCS: 85610

== ENCOUNTER → 2022-12-01 14:32 | Outpatient (ROUT) | payer MEDICARE, OTHER, SELFPAY ==
[2022-09-03 17:23] VITALS: BMI 23.3
[2022-12-01 14:45] LABS: INR 2.7 (0.9-1.3); Prothrombin Time 30.8 SECONDS (10.1-12.7)
== END ==
PROVIDERS: PCP Internal Medicine; Visit Provider Internal Medicine
DX: I48.91 Unspecified atrial fibrillation (principal)
CPT/HCPCS: 85610

== ENCOUNTER → 2022-12-30 11:42 | Outpatient (ROUT) | payer MEDICARE, OTHER, SELFPAY ==
[2022-09-03 17:23] VITALS: BMI 23.3
[2022-12-30 13:11] LABS: INR 3.7 (0.9-1.3); Prothrombin Time 42.8 SECONDS (10.1-12.7)
== END ==
PROVIDERS: PCP Internal Medicine; Visit Provider Internal Medicine
DX: I48.91 Unspecified atrial fibrillation (principal)
CPT/HCPCS: 85610

== ENCOUNTER → 2023-01-06 13:17 | Outpatient (ROUT) | payer MEDICARE, OTHER, SELFPAY ==
[2022-09-03 17:23] VITALS: BMI 23.3
[2023-01-06 13:24] LABS: INR 1.7 (0.9-1.3); Prothrombin Time 19.5 SECONDS (10.1-12.7)
== END ==
PROVIDERS: PCP Internal Medicine; Visit Provider Internal Medicine
DX: I48.91 Unspecified atrial fibrillation (principal)
CPT/HCPCS: 85610

== ENCOUNTER → 2023-01-16 11:58 | Outpatient (ROUT) | payer MEDICARE, OTHER, SELFPAY ==
[2022-09-03 17:23] VITALS: BMI 23.3
[2023-01-16 13:34] LABS: INR 4.4 (0.9-1.3); Prothrombin Time 51.2 SECONDS (10.1-12.7)
== END ==
PROVIDERS: PCP Internal Medicine; Visit Provider Internal Medicine
DX: I48.91 Unspecified atrial fibrillation (principal)
CPT/HCPCS: 85610

== ENCOUNTER → 2023-01-19 11:26 | Outpatient (ROUT) | payer MEDICARE, OTHER, SELFPAY ==
[2022-09-03 17:23] VITALS: BMI 23.3
[2023-01-19 11:43] LABS: INR 1.8 (0.9-1.3)
[2023-01-19 11:49] LABS: Prothrombin Time 20.3 SECONDS (10.1-12.7)
== END ==
PROVIDERS: PCP Internal Medicine; Visit Provider Internal Medicine
DX: I48.91 Unspecified atrial fibrillation (principal)
CPT/HCPCS: 85610

== ENCOUNTER → 2023-02-04 15:21 | Outpatient (ROUT) | payer MEDICARE, OTHER, SELFPAY ==
[2022-09-03 17:23] VITALS: BMI 23.3
[2023-02-04 15:34] LABS: Prothrombin Time 53.3 SECONDS (9.4-12.5)
[2023-02-04 15:44] LABS: INR 4.6 (0.9-1.3)
== END ==
PROVIDERS: PCP Internal Medicine; Visit Provider Internal Medicine
DX: I48.91 Unspecified atrial fibrillation (principal)
CPT/HCPCS: 85610

== ENCOUNTER → 2023-02-11 12:09 | Outpatient (ROUT) | payer MEDICARE, OTHER, SELFPAY ==
[2022-09-03 17:23] VITALS: BMI 23.3
[2023-02-11 12:52] LABS: INR 1.9 (0.9-1.3); Prothrombin Time 22.1 SECONDS (9.4-12.5)
== END ==
PROVIDERS: PCP Internal Medicine; Visit Provider Internal Medicine
DX: I48.91 Unspecified atrial fibrillation (principal)
CPT/HCPCS: 85610

== ENCOUNTER → 2023-02-27 12:17 | Outpatient (ROUT) | payer MEDICARE, OTHER, SELFPAY ==
[2022-09-03 17:23] VITALS: BMI 23.3
[2023-02-27 12:26] LABS: INR 1.8 (0.9-1.3); Prothrombin Time 20.6 SECONDS (9.4-12.5)
== END ==
PROVIDERS: PCP Internal Medicine; Visit Provider Internal Medicine
DX: I48.91 Unspecified atrial fibrillation (principal)
CPT/HCPCS: 85610

== ENCOUNTER → 2023-03-06 10:40 | Outpatient (ROUT) | payer MEDICARE, SELFPAY ==
[2022-09-03 17:23] VITALS: BMI 23.3
[2023-03-06 10:50] LABS: INR 1.8 (0.9-1.3); Prothrombin Time 21.3 SECONDS (9.4-12.5)
== END ==
PROVIDERS: PCP Internal Medicine; Visit Provider Internal Medicine
DX: I48.91 Unspecified atrial fibrillation (principal)
CPT/HCPCS: 85610

== ENCOUNTER → 2023-03-26 16:13 | Outpatient (ROUT) | payer MEDICARE, SELFPAY ==
[2022-09-03 17:23] VITALS: BMI 23.3
[2023-03-26 16:29] LABS: INR 2.2 (0.9-1.3); Prothrombin Time 25.2 SECONDS (9.4-12.5)
== END ==
PROVIDERS: PCP Internal Medicine; Visit Provider Internal Medicine
DX: I48.91 Unspecified atrial fibrillation (principal)
CPT/HCPCS: 85610

== ENCOUNTER → 2023-04-24 09:52 | Outpatient (ROUT) | payer MEDICARE, SELFPAY ==
[2022-09-03 17:23] VITALS: BMI 23.3
[2023-04-24 10:55] LABS: Prothrombin Time 23.4 SECONDS (9.4-12.5)
== END ==
PROVIDERS: PCP Internal Medicine; Visit Provider Internal Medicine
DX: I48.91 Unspecified atrial fibrillation (principal)
CPT/HCPCS: 85610

== ENCOUNTER → 2023-07-20 15:20 | Outpatient (ROUT) | payer MEDICARE, SELFPAY ==
[2022-09-03 17:23] VITALS: BMI 23.3
[2023-07-20 15:30] LABS: INR 1.9 (0.9-1.3); Prothrombin Time 22.5 SECONDS (9.4-12.5)
== END ==
PROVIDERS: PCP Family Medicine; Visit Provider Family Medicine
DX: I48.20 Chronic atrial fibrillation, unspecified (principal)
CPT/HCPCS: 85610

== ENCOUNTER → 2023-08-04 14:47 | Outpatient (ROUT) | payer MEDICARE, SELFPAY ==
[2022-09-03 17:23] VITALS: BMI 23.3
[2023-08-04 15:08] LABS: INR 1.9 (0.9-1.3); Prothrombin Time 21.7 SECONDS (9.4-12.5)
== END ==
PROVIDERS: PCP Family Medicine; Visit Provider Internal Medicine
DX: I48.20 Chronic atrial fibrillation, unspecified (principal)
CPT/HCPCS: 85610

== ENCOUNTER → 2023-08-18 14:55 | Outpatient (ROUT) | payer MEDICARE, SELFPAY ==
[2022-09-03 17:23] VITALS: BMI 23.3
[2023-08-18 15:05] LABS: INR 1.7 (0.9-1.3); Prothrombin Time 19.7 SECONDS (9.4-12.5)
== END ==
PROVIDERS: PCP Family Medicine; Visit Provider Family Medicine
DX: I48.20 Chronic atrial fibrillation, unspecified (principal); Z79.01 Long term (current) use of anticoagulants
CPT/HCPCS: 85610

== ENCOUNTER → 2023-09-01 14:57 | Outpatient (ROUT) | payer MEDICARE, SELFPAY ==
[2022-09-03 17:23] VITALS: BMI 23.3
[2023-09-01 15:11] LABS: INR 2.8 (0.9-1.3); Prothrombin Time 32.1 SECONDS (9.4-12.5)
== END ==
PROVIDERS: PCP Family Medicine; Visit Provider Family Medicine
DX: I48.20 Chronic atrial fibrillation, unspecified (principal); Z79.01 Long term (current) use of anticoagulants
CPT/HCPCS: 85610

== ENCOUNTER → 2023-09-22 14:50 | Outpatient (ROUT) | payer MEDICARE, SELFPAY ==
[2022-09-03 17:23] VITALS: BMI 23.3
[2023-09-22 15:08] LABS: INR 1.9 (0.9-1.3); Prothrombin Time 22.1 SECONDS (9.4-12.5)
== END ==
PROVIDERS: PCP Family Medicine; Visit Provider Family Medicine
DX: I48.20 Chronic atrial fibrillation, unspecified (principal); Z79.01 Long term (current) use of anticoagulants
CPT/HCPCS: 85610

== ENCOUNTER 2023-09-25 10:48 | Emergency (ER) | payer MEDICARE, SELFPAY ==
[2022-09-03 17:23] VITALS: BMI 23.3
[2023-09-25] VITALS (8 sets, daily range): BP systolic 111–141; BP diastolic 51–65; PULSE 69–71; RESP 12–19; TEMP 37; O2SAT 94–99; BMI 21.9
--- NOTE | 2023-09-25 10:59 | DI.RAD.S_ITS ---
PROCEDURE: XR CHEST 1V INDICATIONS: chest pain TECHNIQUE: One view of the chest was acquired. COMPARISON: [facility], , CHEST 1 VIEW, 03/02/2015, 13:01. FINDINGS: Surgical changes and devices: Pacemaker. Lungs and pleura: Lungs are clear. No pleural effusions or pneumothorax. Mediastinum: Mediastinal contours appear normal. Heart size is mildly prominent. Bones and chest wall: No suspicious bony lesions. Overlying soft tissues appear unremarkable. IMPRESSION: No acute pulmonary process. Dictated by: Amy Nielsen M.D. on 09/25/2023 at 11:26 Approved by: Amy Nielsen M.D. on 09/25/2023 at 11:27
--- NOTE | 2023-09-25 11:07 | ED.DIZZY ---
HPI - Dizziness General Chief Complaint: Syncope Stated Complaint: Orthostatic hypotension Time Seen by Provider: 09/25/23 10:52 Source: EMS Mode of arrival: EMS History of Present Illness HPI Narrative: 88-year-old female presents for possible syncopal episode. Patient was attempting to have a bowel movement when her eyes rolled back into her head and she seemed to pass out quickly. EMS was called and per their report patient was hypotensive while sitting up. When patient was laid flat the blood pressure came back to normal. Patient was transferred for further evaluation. On arrival patient is alert and oriented x3 states she feels normal. She states that she has been struggling with constipation for quite some time and is trying to get a GI referral from her primary doctor for her chronic constipation. She states that she has had episodes where she will nearly pass out while trying to have a bowel movement. Patient initially reported shortness of breath on arrival to triage nurse, however she denies this complaint at this time. Related Data Home Medications Medication Instructions Recorded Confirmed amlodipine 10 mg tablet 10 mg PO QDAY ##0 05/18/17 07/08/23 aspirin 81 mg tablet,delayed 81 mg PO QDAY ##0 05/19/17 07/08/23 release atorvastatin 40 mg tablet (Lipitor) 20 mg PO HS ##0 05/19/17 07/08/23 losartan 100 mg tablet 100 mg PO DAILY 12/11/17 07/08/23 magnesium 250 mg tablet 500 mg PO DAILY 12/11/17 07/08/23 terazosin 2 mg capsule 2 mg PO DAILY 12/11/17 07/08/23 warfarin 5 mg tablet 5 mg PO DAILY 12/11/17 07/08/23 L-Lysine 800 mg PO DAILY 09/04/22 07/08/23 Vitamin C 1,000 mcg PO DAILY 09/04/22 07/08/23 quercetin 1 tab PO DAILY 09/04/22 07/08/23 selenium 100 mcg PO DAILY 09/04/22 07/08/23 zinc 50 mcg PO DAILY 09/04/22 07/08/23 gabapentin 300 mg capsule 300 mg PO BEDTIME 07/08/23 07/08/23 Previous Rx's Medication Instructions Recorded hydralazine 25 mg tablet 25 mg PO QID #120 tabs 09/04/22 hydrochlorothiazide 25 mg tablet 25 mg PO DAILY #30 tabs 09/04/22 oxyquinoline 0.025 %-sodium lauryl 1 ea vaginal .q week #113.4 grams 11/26/22 sulfate 0.01 % vaginal gel (Trimo-Lloyd Jelly) Allergies Allergy/AdvReac Type Severity Reaction Status Date / Time No Known Drug Allergies Allergy Verified 09/25/23 10:58 Patient History Medical History Kidney disease (1943) HLD (hyperlipidemia) Carotid artery stenosis Pelvic relaxation Factor 5 Leiden mutation, heterozygous Vision disorder Hearing loss Carpal tunnel syndrome (~2010) Measles (~1947) Kidney disease (~1943) Hypertension (~2004) Surgical History History of appendectomy (~1957) Social History household members: children Smoking Status: Never smoker alcohol intake: never Smoking Status: Never smoker Substance Use Type: does not use Exam Initial Vital Signs Initial Vital Signs: Vital Signs Temperature 98.6 F 09/25/23 10:54 Pulse Rate 69 09/25/23 10:54 Respiratory Rate 12 09/25/23 10:54 Blood Pressure 121/57 L 09/25/23 10:54 Pulse Oximetry 99 09/25/23 10:54 Oxygen Delivery Method Room Air 09/25/23 10:54 Const: Awake, alert, no acute distress, frail Cardiac: regular rate, regular rhythm RESP: unlabored, clear bilaterally, no wheezing GI: Soft, nontender, nondistended Skin: Warm, Dry, intact, no rashes Neuro: AO x3, CN II-XII grossly intact, moves all extremities Course Orders Ordered: Discontinued Medications Aspirin (Aspirin 81 Mg Chew Tab) 324 mg PO NOW ONE Stop: 09/25/23 11:00 Last Admin: 09/25/23 12:26 Dose: Not Given Documented By: ÁLVARO Sodium Chloride (Normal Saline 0.9%) 1,000 mls @ 1,000 mls/hr IV BOLUS ONE Stop: 09/25/23 14:04 Last Infusion: 09/25/23 14:08 Dose: Infused Documented By: Admin: 09/25/23 13:09 Dose: 1,000 mls/hr Documented By: ÁLVARO Vital Signs Vital signs: Vital Signs - 8 hr 09/25/23 10:54 09/25/23 11:00 09/25/23 11:30 Temperature 98.6 F Pulse Rate 69 71 Respiratory Rate 12 14 Blood Pressure 121/57 L 140/60 Pulse Oximetry 99 99 Oxygen Delivery Method Room Air 09/25/23 11:30 09/25/23 12:00 09/25/23 12:00 Temperature Pulse Rate 69 69 Respiratory Rate 19 13 Blood Pressure 111/51 L Pulse Oximetry 97 94 Oxygen Delivery Method 09/25/23 12:30 09/25/23 12:31 09/25/23 12:31 Temperature Pulse Rate 70 69 Respiratory Rate Blood Pressure 128/61 Pulse Oximetry 95 96 Oxygen Delivery Method 09/25/23 13:00 09/25/23 13:00 Temperature Pulse Rate 69 Respiratory Rate Blood Pressure 133/63 Pulse Oximetry 96 Oxygen Delivery Method MDM - Dizziness Differential Diagnosis Differential diagnosis: Likely adverse reaction to drug, orthostatic hypotension and other (vasovagal syncope) Lab Data 09/25/23 11:11 09/25/23 11:11 Labs: Lab Results 09/25/23 Range/Units 11:11 WBC 11.8 H (4.5-11.0) X10^3/uL RBC 3.50 L (4.0-5.2) X10^6/uL Hgb 11.0 L (12.0-16.0) g/dL Hct 32.5 L (36-46) % MCV 93.0 (80-100) fL MCH 31.5 (26-34) PG MCHC 33.9 (30-36) % RDW 13.7 (11.6-14.8) % Plt Count 301 (150-400) X10^3/uL Neut % (Auto) 77.8 H (50-75) % Lymph % (Auto) 15.4 L (25-40) % [place] % (Auto) 3.3 (3-14) % Eos % (Auto) 3.0 (2-4) % Baso % (Auto) 0.5 (0-2) % Neut # (Auto) 9200 H (8436-3085) /uL Lymph # (Auto) 1800 (6471-8228) /uL [place] # (Auto) 400 (0-900) /uL Eos # (Auto) 400 (0-450) /uL Baso # (Auto) 100 (0-100) /uL PT 22.0 H (9.4-12.5) SECONDS INR 1.9 H (0.9-1.3) APTT 34 (25.1-36.5) SECONDS Sodium 135 L (137-145) mmol/L Potassium 5.0 (3.4-5.1) mmol/L Chloride 108 H (98-107) mmol/L Carbon Dioxide 18 L (22-32) mmol/L BUN 70 H (7-17) mg/dL Creatinine 2.28 H (0.52-1.04) mg/dL Estimated GFR 20 L (>60) mL/min BUN/Creatinine Ratio 30.7 H (6-22) Glucose 137 H (80-110) mg/dL Calcium 10.0 (8.4-10.2) mg/dL Magnesium 2.1 (1.6-2.3) mg/dL Total Bilirubin 0.5 (0.2-1.3) mg/dL AST 30 (14-36) IU/L ALT 21 (<35) IU/L Alkaline Phosphatase 125 (38-126) U/L Total Creatine Kinase 39 (30-135) U/L Troponin I < 0.012 (0.01-0.034) ng/mL NT-Pro-B Natriuret Pep 753 H (<450) pg/mL Total Protein 7.2 (6.3-8.2) g/dL Albumin 3.9 (3.5-5.0) g/dL Globulin 3.3 (1.7-4.1) g/dL Albumin/Globulin Ratio 1.2 (1.0-2.8) Lipase 237 (23-300) U/L Imaging Data Chest x-ray: Radiologist's Impression: PROCEDURE: XR CHEST 1V INDICATIONS: chest pain TECHNIQUE: One view of the chest was acquired. COMPARISON: [facility], , CHEST 1 VIEW, 03/02/2015, 13:01. FINDINGS: Surgical changes and devices: Pacemaker. Lungs and pleura: Lungs are clear. No pleural effusions or pneumothorax. Mediastinum: Mediastinal contours appear normal. Heart size is mildly prominent. Bones and chest wall: No suspicious bony lesions. Overlying soft tissues appear unremarkable. IMPRESSION: No acute pulmonary process. Dictated by: Amy Nielsen, M.D. on 09/25/2023 at 11:26 Approved by: Amy Nielsen M.D. on 09/25/2023 at 11:27 ECG Data Interpretation: Atrial paced rhythm at 70 beats per minute. No ST T wave changes MDM Narrative Medical decision making narrative: Patient with what sounds to be vasovagal syncope while attempting to have a bowel movement. Patient was awake, alert, at her baseline. Patient was able to have small bowel movement in ED with improvement in symptoms, but states she still feels constipated. EKG atrial paced rhythm without concerning findings. Patient has chronic kidney disease, laboratory work today shows creatinine of 2.28 and GFR of 20, no recent priors for comparison, last measurement in her system from 09/04/2022 that showed creatinine of 1.45. I was able to discuss case with the PCP covering for Dr. Hernandez, Dr. Massey, who stated that patient's creatinine is slightly higher than her most recent levels, but not significantly abnormal. Recommended small fluid bolus and patient can recheck labs in 5 days at the primary clinic. Patient informed of lab and imaging findings as well as PCP recommendations. She asked about constipation, I recommended daily stool softener such as MiraLax with goal of 1 soft bowel movement daily. Discharge Plan Departure Patient Disposition: Home Clinical Impression: Syncope, vasovagal, Constipation, Creatinine elevation Instructions: DI for Constipation Activity Restrictions/Additional Instructions: Your laboratory work today was more or less at your baseline. You had a slight bump in your creatinine, or kidney levels, however I discussed this with your doctor's office and they will follow up with you on Thursday about Re drawing laboratory work. Call the doctor's office to make sure that they can draw your blood to recheck your kidney function. For constipation your new daily medication prescription is a cap full of MiraLax with least 8 oz of water. Take this every single day without fail in order to make sure that you have regular bowel movements. If you continued to feel constipated you may take an [id number] senna tablet Prescriptions: No Action amlodipine 10 MG tablet 10 mg PO QDAY Qty: 0 atorvastatin [Lipitor] 40 MG tablet 20 mg PO HS Qty: 0 aspirin 81 MG tablet,delayed release (DR/EC) 81 mg PO QDAY Qty: 0 Trimo-Lloyd Jelly 0.025-0.01 % gel 1 ea vaginal .q week Qty: 113.4 3RF terazosin 2 mg capsule 2 mg PO DAILY Patient Comments: takes in evening warfarin 5 mg tablet 5 mg PO DAILY Rx Instructions: 2.5 mg on Thursday magnesium 250 mg tablet 500 mg PO DAILY losartan 100 mg tablet 100 mg PO DAILY gabapentin 300 mg capsule 300 mg PO BEDTIME L-Lysine 800 mg tablet 800 mg PO DAILY selenium 200 mcg tablet 100 mcg PO DAILY zinc 50 mcg tablet 50 mcg PO DAILY Vitamin C 1,000 mcg tablet 1,000 mcg PO DAILY quercetin tablet 1 tab PO DAILY hydralazine 25 mg Tablet 25 mg PO QID Qty: 120 0RF hydrochlorothiazide 25 mg Tablet 25 mg PO DAILY Qty: 30 0RF Referrals: Dario Hernandez MD [Primary Care Provider] - Stand Alone Forms: Patient Portal/API
--- NOTE | 2023-09-25 11:19 | EKG_ITS ---
[place] [id number] [address] [place] [id number] Test Date: 2023-09-25 Pat Name: Leisa Espinoza Department: [facility] Room: Gender: Female Drier Feeder: KARINA : 1935 Requested By: Order Number: [id number] Reading MD: Maurisio Quesada Measurements Intervals Bude Rate: 70 P: ID: [id number] QRS: 1 QRSD: 86 T: 31 QT: 382 QTc: 412 Interpretive Statements Atrial-paced rhythm with prolonged AV conduction Electronically Signed On 09-28-2023 8:42:09 PDT by Maurisio Quesada
[2023-09-25 11:26] LABS: Add Manual Diff / Slide Review NO; Basophils Absolute Auto 100 /uL (0-100); Basophils Percent Auto 0.5 % (0-2); Eosinophils Absolute Auto 400 /uL (0-450); Hematocrit 32.5 % (36-46); Lymphocytes Absolute Auto 1800 /uL (1100-4500); Lymphocytes Percent Auto 15.4 % (25-40); Mean Corpuscular HGB Conc 33.9 % (30-36); Mean Corpuscular Hemoglobin 31.5 PG (26-34); Monocytes Absolute Auto 400 /uL (0-900); Monocytes Percent Auto 3.3 % (3-14); Neutrophils Absolute Auto 9200 /uL (1500-7000); Neutrophils Percent Auto 77.8 % (50-75); Platelet Count 301 X10^3/uL (150-400); Red Cell Distribution Width 13.7 % (11.6-14.8); White Blood Cell Count 11.8 X10^3/uL (4.5-11.0)
--- NOTE | 2023-09-25 11:29 | PC.NURSE ---
inserted by another nurse
[2023-09-25 11:33] LABS: INR 1.9 (0.9-1.3)
[2023-09-25 11:36] LABS: PTT Partial Thromboplastin Tim 34 SECONDS (25.1-36.5)
[2023-09-25 11:39] LABS: Alanine Aminotransferase 21 IU/L (<35); Albumin 3.9 g/dL (3.5-5.0); Albumin Globulin Ratio 1.2 (1.0-2.8); Alkaline Phosphatase 125 U/L (38-126); Aspartate Aminotransferase 30 IU/L (14-36); BUN Creatinine Ratio 30.7 (6-22); Bilirubin Total 0.5 mg/dL (0.2-1.3); Blood Urea Nitrogen 70 mg/dL (7-17); Carbon Dioxide 18 mmol/L (22-32); Chloride 108 mmol/L (98-107); Creatine Kinase 39 U/L (30-135); Estimated Glomerular Filt Rate 20 mL/min (>60); Globulin 3.3 g/dL (1.7-4.1); Glucose 137 mg/dL (80-110); HEMOLYSIS < 15 (0-50); Lipase 237 U/L (23-300); Magnesium 2.1 mg/dL (1.6-2.3); Sodium 135 mmol/L (137-145); Total Protein 7.2 g/dL (6.3-8.2)
[2023-09-25 11:49] LABS: NT-proBNP (BNP-Adult 18+) 753 pg/mL (<450); Troponin I < 0.012 ng/mL (0.01-0.034)
[2023-09-25] MEDS: SODIUM CHLORIDE 0.9% 1,000 ML 1000 ML IV (13:09)
== END 2023-09-25 14:10 | disposition home or self-care (01) ==
PROVIDERS: Emergency Provider Emergency Medicine; PCP Family Medicine
DX: R55 Syncope and collapse (principal); K59.00 Constipation, unspecified; R79.89 Other specified abnormal findings of blood chemistry; R07.9 Chest pain, unspecified
CPT/HCPCS: 36415; 71045; 80053; 82550; 83690; 83735; 83880; 84484; 85025; 85610; 85730; 93005; 96360; 99284

== ENCOUNTER → 2023-09-28 12:36 | Outpatient (ROUT) | payer MEDICARE, SELFPAY ==
[2022-09-03 17:23] VITALS: BMI 23.3
[2023-09-28 12:49] LABS: INR 2.7 (0.9-1.3); Prothrombin Time 31.5 SECONDS (9.4-12.5)
== END ==
PROVIDERS: PCP Family Medicine; Visit Provider Family Medicine
DX: Z79.01 Long term (current) use of anticoagulants (principal); I48.20 Chronic atrial fibrillation, unspecified
CPT/HCPCS: 85610

== ENCOUNTER → 2023-10-19 12:10 | Outpatient (ROUT) | payer MEDICARE, SELFPAY ==
[2022-09-03 17:23] VITALS: BMI 23.3
[2023-10-19 12:17] LABS: INR 2.8 (0.9-1.3); Prothrombin Time 32.6 SECONDS (9.4-12.5)
== END ==
PROVIDERS: PCP Family Medicine; Visit Provider Family Medicine
DX: Z79.01 Long term (current) use of anticoagulants (principal); I48.20 Chronic atrial fibrillation, unspecified
CPT/HCPCS: 85610

== ENCOUNTER 2023-11-15 11:04 | Emergency (ER) | payer MEDICARE, SELFPAY ==
[2022-09-03 17:23] VITALS: BMI 23.3
[2023-11-15 11:09] VITALS: BP 163/71; PULSE 69; RESP 18; TEMP 36.9; O2SAT 100; BMI 23.2
--- NOTE | 2023-11-15 11:09 | ED.SYNCOPE ---
HPI - Syncope General Chief Complaint: Syncope Stated Complaint: Syncope Time Seen by Provider: 11/15/23 11:08 History of Present Illness HPI narrative: 88-year-old female with history of chronic kidney disease, hypertension, pacemaker in place presents by EMS from [facility] for syncopal episode. EMS states that patient went to go stand up, and when she sat back down felt lightheaded and lost consciousness. Event happened while patient was seated. Bystanders lay the patient on the ground and called 911. EMS reports that when they arrived patient was alert and oriented with normal vital signs. Patient seen in the emergency department in August for syncopal episode that occurred while having a bowel movement. Patient states that she has had multiple syncopal episodes and has had a myriad of tests, but no reason can be found. Related Data Home Medications Medication Instructions Recorded Confirmed amlodipine 10 mg tablet 10 mg PO QDAY ##0 05/18/17 11/06/23 aspirin 81 mg tablet,delayed 81 mg PO QDAY ##0 05/19/17 11/06/23 release losartan 100 mg tablet 100 mg PO DAILY 12/11/17 11/06/23 magnesium 250 mg tablet 500 mg PO DAILY 12/11/17 11/06/23 terazosin 2 mg capsule 2 mg PO DAILY 12/11/17 11/06/23 warfarin 5 mg tablet 5 mg PO DAILY 12/11/17 11/06/23 L-Lysine 800 mg PO DAILY 09/04/22 11/06/23 Vitamin C 1,000 mcg PO DAILY 09/04/22 11/06/23 quercetin 1 tab PO DAILY 09/04/22 11/06/23 selenium 100 mcg PO DAILY 09/04/22 11/06/23 zinc 50 mcg PO DAILY 09/04/22 11/06/23 gabapentin 300 mg capsule 300 mg PO BEDTIME 07/08/23 11/06/23 evolocumab 140 mg/mL subcutaneous mg SUBCUT 10/23/23 11/06/23 pen injector (Tonny Damon) Previous Rx's Medication Instructions Recorded hydrochlorothiazide 25 mg tablet 25 mg PO DAILY #30 tabs 09/04/22 oxyquinoline 0.025 %-sodium lauryl 1 ea vaginal .q week #113.4 grams 11/26/22 sulfate 0.01 % vaginal gel (Trimo-Lloyd Jelly) Allergies Allergy/AdvReac Type Severity Reaction Status Date / Time No Known Drug Allergies Allergy Verified 11/06/23 10:48 Patient History Medical History Kidney disease (194) HLD (hyperlipidemia) Carotid artery stenosis Pelvic relaxation Factor 5 Leiden mutation, heterozygous Vision disorder Hearing loss Carpal tunnel syndrome (~2010) Measles (~1948) Kidney disease (~194) Hypertension (~2004) Surgical History History of appendectomy (~1957) Social History household members: children Smoking Status: Never smoker alcohol intake: never Smoking Status: Never smoker Substance Use Type: does not use Exam Initial Vital Signs Initial Vital Signs: Vital Signs Temperature 98.4 F 11/15/23 11:09 Pulse Rate 69 11/15/23 11:09 Respiratory Rate 18 11/15/23 11:09 Blood Pressure 163/71 H 11/15/23 11:09 Pulse Oximetry 100 11/15/23 11:09 Oxygen Delivery Method Room Air 11/15/23 11:09 Course Orders Ordered: Discontinued Medications Sodium Chloride (Normal Saline 0.9%) 500 mls @ 1,000 mls/hr IV BOLUS ONE Stop: 11/15/23 11:37 Last Infusion: 11/15/23 12:04 Dose: Infused Documented By: Admin: 11/15/23 11:20 Dose: 1,000 mls/hr Documented By: HARRY Vital Signs Vital signs: Vital Signs - 8 hr 11/15/23 11:09 11/15/23 11:19 11/15/23 11:30 Temperature 98.4 F Pulse Rate 69 69 69 Respiratory Rate 18 14 19 Blood Pressure 163/71 H Pulse Oximetry 100 99 98 Oxygen Delivery Method Room Air 11/15/23 11:30 11/15/23 11:48 11/15/23 11:48 Temperature Pulse Rate 70 Respiratory Rate 19 Blood Pressure 159/72 H 176/77 H Pulse Oximetry 98 Oxygen Delivery Method 11/15/23 11:59 11/15/23 11:59 11/15/23 12:00 Temperature Pulse Rate 77 Respiratory Rate 24 Blood Pressure 178/73 H 176/76 H Pulse Oximetry 98 Oxygen Delivery Method 11/15/23 12:00 Temperature Pulse Rate 71 Respiratory Rate 20 Blood Pressure Pulse Oximetry 95 Oxygen Delivery Method MDM - Syncope Lab Data 11/15/23 11:00 11/15/23 11:00 Labs: Lab Results 11/15/23 Range/Units 11:00 WBC 8.4 (4.5-11.0) X10^3/uL RBC 3.31 L (4.0-5.2) X10^6/uL Hgb 10.6 L (12.0-16.0) g/dL Hct 30.8 L (36-46) % MCV 93.1 (80-100) fL MCH 32.1 (26-34) PG MCHC 34.4 (30-36) % RDW 13.6 (11.6-14.8) % Plt Count 249 (150-400) X10^3/uL Neut % (Auto) 56.8 (50-75) % Lymph % (Auto) 33.1 (25-40) % [place] % (Auto) 7.0 (3-14) % Eos % (Auto) 2.6 (2-4) % Baso % (Auto) 0.5 (0-2) % Neut # (Auto) 4800 (0018-6284) /uL Lymph # (Auto) 2800 (3228-1533) /uL [place] # (Auto) 600 (0-900) /uL Eos # (Auto) 200 (0-450) /uL Baso # (Auto) 0 (0-100) /uL PT 21.2 H (9.4-12.5) SECONDS INR 1.8 H (0.9-1.3) Sodium 134 L (137-145) mmol/L Potassium 4.9 (3.4-5.1) mmol/L Chloride 107 (98-107) mmol/L Carbon Dioxide 17 L (22-32) mmol/L BUN 78 H (7-17) mg/dL Creatinine 2.09 H (0.52-1.04) mg/dL Estimated GFR 23 L (>60) mL/min BUN/Creatinine Ratio 37.3 H (6-22) Glucose 108 (80-110) mg/dL Calcium 10.4 H (8.4-10.2) mg/dL Total Bilirubin 0.4 (0.2-1.3) mg/dL AST 34 (14-36) IU/L ALT 23 (<35) IU/L Alkaline Phosphatase 105 (38-126) U/L Total Protein 6.9 (6.3-8.2) g/dL Albumin 3.7 (3.5-5.0) g/dL Globulin 3.2 (1.7-4.1) g/dL Albumin/Globulin Ratio 1.2 (1.0-2.8) ECG Data Interpretation: Atrial paced rhythm at 70 beats per minute, no ST T wave changes, no STEMI MDM Narrative Medical decision making narrative: Well-appearing patient with a syncopal episode after standing. Patient reports that she has had numerous similar episodes in the past with no cause found despite frequent testing. Patient currently alert, oriented, denying complaints. Pacemaker interrogated, no events reported. Laboratory work reviewed, consistent with the patient's baseline. Patient able to ambulate to and from the bathroom without difficulty. Labs and imaging as well as EKG results discussed with patient and family at bedside. Recommended close follow up with the patient's primary care doctor. Discharge Plan Departure Patient Disposition: Home Clinical Impression: Syncope Instructions: DI for Syncope in Adults (Fainting) Activity Restrictions/Additional Instructions: Your INR today was 1.8. Otherwise your electrolytes and kidney function appear to be at your baseline. The pacemaker did not detect any unusual heart rhythms. Be careful when changing positions as sudden changes can lead to a drop in blood pressure, which can cause you to pass out. Your description of these events sounds like a blood pressure issue. Keep in close communication with your primary care doctor for your syncopal episodes. Prescriptions: No Action amlodipine 10 MG tablet 10 mg PO QDAY Qty: 0 aspirin 81 MG tablet,delayed release (DR/EC) 81 mg PO QDAY Qty: 0 Trimo-Lloyd Jelly 0.025-0.01 % gel 1 ea vaginal .q week Qty: 113.4 3RF Repatha SureClick 140 mg/mL pen injector SUBCUT Patient Comments: [NO ORIGINAL SIG] terazosin 2 mg capsule 2 mg PO DAILY Patient Comments: takes in evening warfarin 5 mg tablet 5 mg PO DAILY Rx Instructions: 2.5 mg on Thursday magnesium 250 mg tablet 500 mg PO DAILY losartan 100 mg tablet 100 mg PO DAILY gabapentin 300 mg capsule 300 mg PO BEDTIME L-Lysine 800 mg tablet 800 mg PO DAILY selenium 200 mcg tablet 100 mcg PO DAILY zinc 50 mcg tablet 50 mcg PO DAILY Vitamin C 1,000 mcg tablet 1,000 mcg PO DAILY quercetin tablet 1 tab PO DAILY hydrochlorothiazide 25 mg Tablet 25 mg PO DAILY Qty: 30 0RF Referrals: Dario Hernandez MD [Primary Care Provider] - Stand Alone Forms: Patient Portal/API
--- NOTE | 2023-11-15 11:15 | EKG_ITS ---
[address] [address] Test Date: 2023-11-15 Pat Name: Leisa Espinoza Department: [facility] Room: Gender: Female Bobbin Coil Winder: KARINA : 1935 Requested By: Order Number: [id number] Reading MD: Maurisio Quesada Measurements Intervals [place] Rate: 70 P: [place]: 226 QRS: 18 QRSD: 86 T: 32 QT: 368 QTc: 397 Interpretive Statements Atrial-paced rhythm with prolonged AV conduction Electronically Signed On 11-15-2023 17:38:28 PDT by Maurisio Quesada
[2023-11-15 11:19] VITALS: PULSE 69; RESP 14; O2SAT 99
[2023-11-15] MEDS: SODIUM CHLORIDE 0.9% 500 ML 1000 ML IV (11:20)
[2023-11-15 11:26] LABS: Add Manual Diff / Slide Review NO; Basophils Absolute Auto 0 /uL (0-100); Basophils Percent Auto 0.5 % (0-2); Eosinophils Absolute Auto 200 /uL (0-450); Eosinophils Percent Auto 2.6 % (2-4); Hematocrit 30.8 % (36-46); Hemoglobin 10.6 g/dL (12.0-16.0); Lymphocytes Absolute Auto 2800 /uL (1100-4500); Lymphocytes Percent Auto 33.1 % (25-40); Mean Corpuscular HGB Conc 34.4 % (30-36); Mean Corpuscular Hemoglobin 32.1 PG (26-34); Mean Corpuscular Volume 93.1 fL (80-100); Monocytes Absolute Auto 600 /uL (0-900); Neutrophils Absolute Auto 4800 /uL (1500-7000); Neutrophils Percent Auto 56.8 % (50-75); Platelet Count 249 X10^3/uL (150-400); Red Blood Cell Count 3.31 X10^6/uL (4.0-5.2); Red Cell Distribution Width 13.6 % (11.6-14.8); White Blood Cell Count 8.4 X10^3/uL (4.5-11.0)
[2023-11-15 11:30] VITALS: BP 159/72; PULSE 69; RESP 19; O2SAT 98
[2023-11-15 11:37] LABS: INR 1.8 (0.9-1.3); Prothrombin Time 21.2 SECONDS (9.4-12.5)
[2023-11-15 11:46] LABS: Alanine Aminotransferase 23 IU/L (<35); Albumin 3.7 g/dL (3.5-5.0); Albumin Globulin Ratio 1.2 (1.0-2.8); Alkaline Phosphatase 105 U/L (38-126); Aspartate Aminotransferase 34 IU/L (14-36); BUN Creatinine Ratio 37.3 (6-22); Bilirubin Total 0.4 mg/dL (0.2-1.3); Blood Urea Nitrogen 78 mg/dL (7-17); Calcium 10.4 mg/dL (8.4-10.2); Carbon Dioxide 17 mmol/L (22-32); Chloride 107 mmol/L (98-107); Estimated Glomerular Filt Rate 23 mL/min (>60); Globulin 3.2 g/dL (1.7-4.1); Glucose 108 mg/dL (80-110); HEMOLYSIS < 15 (0-50); Potassium 4.9 mmol/L (3.4-5.1); Sodium 134 mmol/L (137-145); Total Protein 6.9 g/dL (6.3-8.2)
[2023-11-15 11:48] VITALS: BP 176/77; PULSE 70; RESP 19; O2SAT 98
[2023-11-15 11:59] VITALS: BP 178/73; PULSE 77; RESP 24; O2SAT 98
[2023-11-15 12:00] VITALS: BP 176/76; PULSE 71; RESP 20; O2SAT 95
== END 2023-11-15 12:28 | disposition home or self-care (01) ==
PROVIDERS: Emergency Provider Emergency Medicine; PCP Family Medicine
DX: R55 Syncope and collapse (principal); N18.9 Chronic kidney disease, unspecified; I10 Essential (primary) hypertension; Z95.0 Presence of cardiac pacemaker; Z79.01 Long term (current) use of anticoagulants
CPT/HCPCS: 80053; 85025; 85610; 93005; 96360; 99283; 99284

== ENCOUNTER → 2023-11-17 15:47 | Outpatient (CLI) | payer MEDICARE, SELFPAY ==
[2022-09-03 17:23] VITALS: BMI 23.3
--- NOTE | 2023-11-17 15:48 | DI.US.S_ITS ---
PROCEDURE: US CAROTID DOPPLER BI INDICATIONS: CAROTID ARTERY STENOSIS TECHNIQUE: Color and pulse Doppler interrogation was performed of both carotid systems, with image documentation and velocity measurements. COMPARISON: [facility], , US CAROTID DOPPLER BI, 09/04/2022, 8:37. [facility], , US CAROTID DOPPLER BI, 10/11/2020, 11:19. FINDINGS: Stenosis calculations are based on SRU (Society of Radiologists in Ultrasound) criteria. Right side: Brachial blood pressure: 150/64 mm Hg. Common carotid artery peak systolic velocity: 113 cm/sec. Internal carotid artery peak systolic velocity: 130 cm/sec. Internal carotid artery end diastolic velocity: 119 cm/sec. External carotid artery peak systolic velocity: 363 cm/sec. ICA/CCA peak systolic ratio: 1.2 . Delacruz scale imaging description: Mild scattered plaque in the common carotid , proximal internal carotid, and proximal external carotid arteries Percent internal carotid artery stenosis: 50-69% stenosis . Vertebral artery: Flow direction is antegrade. Left side: Brachial blood pressure: 150/63 mm Hg. Common carotid artery peak systolic velocity: 141 cm/sec. Internal carotid artery peak systolic velocity: 116 cm/sec. Internal carotid artery end diastolic velocity: 24 cm/sec. External carotid artery peak systolic velocity: 202 cm/sec. ICA/CCA peak systolic ratio: 0.8 . Delacruz scale imaging description: Moderate scattered plaque in the common carotid, proximal internal carotid, and proximal external carotid arteries Percent internal carotid artery stenosis: 50-69% stenosis . Vertebral artery: Flow direction is antegrade. IMPRESSION: 1. 50-69% stenosis of the internal carotid arteries. 2. Moderate external carotid artery stenosis. Dictated by: Arslan Vicente M.D. on 11/17/2023 at 22:26 Approved by: Arslan Vicente M.D. on 11/17/2023 at 22:29
== END ==
PROVIDERS: PCP Family Medicine; Referring Provider Surgery; Visit Provider Surgery
DX: I65.23 Occlusion and stenosis of bilateral carotid arteries (principal)
CPT/HCPCS: 93880

== ENCOUNTER → 2023-11-23 10:45 | Outpatient (ROUT) | payer MEDICARE, SELFPAY ==
[2022-09-03 17:23] VITALS: BMI 23.3
[2023-11-23 10:51] LABS: INR 2.1 (0.9-1.3); Prothrombin Time 23.7 SECONDS (9.4-12.5)
== END ==
PROVIDERS: PCP Family Medicine; Visit Provider Family Medicine
DX: I48.20 Chronic atrial fibrillation, unspecified (principal); Z79.01 Long term (current) use of anticoagulants
CPT/HCPCS: 85610

== ENCOUNTER 2023-12-03 10:42 | Emergency (ER) | payer MEDICARE, SELFPAY ==
[2022-09-03 17:23] VITALS: BMI 23.3
[2023-12-03] VITALS (7 sets, daily range): BP systolic 125–153; BP diastolic 61–70; PULSE 69–70; RESP 14–21; TEMP 37; O2SAT 96–99; BMI 23.2
--- NOTE | 2023-12-03 10:38 | ED_ITS ---
HPI - Syncope General Chief Complaint: Syncope Stated Complaint: syncope Time Seen by Provider: 12/03/23 10:48 History of Present Illness HPI narrative: Patient is a 88-year-old female history of CKD hypertension with pacemaker brought in by EMS for syncopal episode at [employer]. Patient has had multiple symptoms of this in the past. She states that she needed to use the restroom and had tried to get up and felt lightheaded and lost consciousness. Unsure of head strike. At arrival patient with pressures in the 60s systolically, after repositioning and fluids of 200 cc according to medics patient's blood pressure now normotensive. Review of records show that this happens constantly, last seen here on 11/15/2023 for exactly the same symptoms. Currently she just feels a little weak but denies any other symptoms. Patient has been compliant with her warfarin Related Data Home Medications Medication Instructions Recorded Confirmed amlodipine 10 mg tablet 10 mg PO QDAY ##0 05/18/17 11/06/23 aspirin 81 mg tablet,delayed 81 mg PO QDAY ##0 05/19/17 11/06/23 release losartan 100 mg tablet 100 mg PO DAILY 12/11/17 11/06/23 magnesium 250 mg tablet 500 mg PO DAILY 12/11/17 11/06/23 terazosin 2 mg capsule 2 mg PO DAILY 12/11/17 11/06/23 warfarin 5 mg tablet 5 mg PO DAILY 12/11/17 11/06/23 L-Lysine 800 mg PO DAILY 09/04/22 11/06/23 Vitamin C 1,000 mcg PO DAILY 09/04/22 11/06/23 quercetin 1 tab PO DAILY 09/04/22 11/06/23 selenium 100 mcg PO DAILY 09/04/22 11/06/23 zinc 50 mcg PO DAILY 09/04/22 11/06/23 gabapentin 300 mg capsule 300 mg PO BEDTIME 07/08/23 11/06/23 evolocumab 140 mg/mL subcutaneous mg SUBCUT 10/23/23 11/06/23 pen injector (Tonny Damon) Previous Rx's Medication Instructions Recorded hydrochlorothiazide 25 mg tablet 25 mg PO DAILY #30 tabs 09/04/22 oxyquinoline 0.025 %-sodium lauryl 1 ea vaginal .q week #113.4 grams 11/26/22 sulfate 0.01 % vaginal gel (Trimo-Lloyd Jelly) Allergies Allergy/AdvReac Type Severity Reaction Status Date / Time No Known Drug Allergies Allergy Verified 11/06/23 10:48 Review of Systems Review of Systems Narrative: General: Denies fever, chills, weight loss HEENT: Denies headache, eye drainage, eye irritation, head trauma, sore throat, voice change Cardiovascular: Denies any chest pain, palpitations, shortness of breath, tachycardia Respiratory: Denies any shortness of breath, cough, wheeze, stridor GI/: Denies any abdominal pain, nausea, vomiting, diarrhea, bright red blood per rectum, melanotic stools, urinary frequency, urinary retention, dysuria, hematuria MSK: Denies any joint pain, muscle pains, swelling Skin: Denies any rashes, lesions, discoloration Neuro: Positive for lightheadedness, dizziness, syncope Psych: Denies SI/HI Patient History Medical History Kidney disease (194) HLD (hyperlipidemia) Carotid artery stenosis Pelvic relaxation Factor 5 Leiden mutation, heterozygous Vision disorder Hearing loss Carpal tunnel syndrome (~2010) Measles (~194) Kidney disease (~194) Hypertension (~2004) Surgical History History of appendectomy (~1957) Social History household members: children Smoking Status: Never smoker alcohol intake: never Exam Narrative Exam Narrative: General: Cooperative, comfortable, well-developed, not in acute distress HEENT: Normocephalic, atraumatic, PERRLA, normal sclera, eyelids normal, Neck: Active full range of motion, atraumatic Chest: Normal to inspection, negative crepitus, no overlying erythema ecchymosis Respiratory: Normal respiratory effort, not in acute respiratory distress, clear to auscultation bilaterally negative cough, wheeze, tachypnea, rhonchi, rales Cardiology: Regular rate rhythm negative gallop, murmur, rubs GI/: Normal to inspection, soft, nonrigid, no tenderness to palpation, exam deferred MSK: Full range of active range of motion of all 4 extremities, atraumatic Skin: No rashes lesions noted Neuro: Alert awake oriented x3, moves all 4 extremities spontaneously, cranial nerves intact, able to answer all questions appropriately follows commands appropriately Psych: Cooperative, negative suicidal or homicidal ideations Initial Vital Signs Initial Vital Signs: Vital Signs Temperature 98.6 F 12/03/23 10:51 Pulse Rate 70 12/03/23 10:51 Respiratory Rate 20 12/03/23 10:51 Blood Pressure 149/70 H 12/03/23 10:51 Pulse Oximetry 99 12/03/23 10:51 Oxygen Delivery Method Room Air 12/03/23 10:51 Course Orders Ordered: ED Orders 12/03/23 10:40 Basic Metabolic Panel Stat Complete Blood Count AUTO DIFF Stat Prothrombin Time INR Stat Troponin I Stat 12/03/23 10:49 XR chest 1V Stat EKG-12 Lead Stat 12/03/23 10:50 CT head/brain wo con Stat Sodium Chloride (Normal Saline 0.9%) 1,000 mls @ 150 mls/hr IV CONT PATIENCE Last Admin: 12/03/23 11:54 Dose: 150 mls/hr Documented By: GABBY Discontinued Medications Sodium Chloride (Normal Saline 0.9%) 1,000 mls @ 1,000 mls/hr IV BOLUS ONE Stop: 12/03/23 11:47 Last Infusion: 12/03/23 11:50 Dose: Infused Documented By: Admin: 12/03/23 10:58 Dose: 1,000 mls/hr Documented By: GABBY Vital Signs Vital signs: Vital Signs - 8 hr 12/03/23 10:51 12/03/23 11:12 12/03/23 11:30 Temperature 98.6 F Pulse Rate 70 69 69 Respiratory Rate 20 15 18 Blood Pressure 149/70 H Pulse Oximetry 99 99 99 Oxygen Delivery Method Room Air 12/03/23 11:49 12/03/23 11:49 12/03/23 12:00 Temperature Pulse Rate 70 69 Respiratory Rate 21 16 Blood Pressure 129/61 Pulse Oximetry 98 97 Oxygen Delivery Method 12/03/23 12:00 Temperature Pulse Rate Respiratory Rate Blood Pressure 125/61 Pulse Oximetry Oxygen Delivery Method MDM - Syncope Differential Diagnosis Differential diagnosis: Likely syncope due to orthostatic hypotension, vasovagal syncope, dehydration and other (Electrolyte abnormality, CVA, ACS) Medical Records Attestation: I reviewed the patient's medical records. Lab Data 12/03/23 10:40 12/03/23 10:40 Labs: Lab Results 12/03/23 Range/Units 10:40 WBC 11.9 H (4.5-11.0) X10^3/uL RBC 3.11 L (4.0-5.2) X10^6/uL Hgb 10.0 L (12.0-16.0) g/dL Hct 29.2 L (36-46) % MCV 93.9 (80-100) fL MCH 32.2 (26-34) PG MCHC 34.4 (30-36) % RDW 13.2 (11.6-14.8) % Plt Count 256 (150-400) X10^3/uL Neut % (Auto) 67.5 (50-75) % Lymph % (Auto) 25.2 (25-40) % [place] % (Auto) 5.6 (3-14) % Eos % (Auto) 1.2 L (2-4) % Baso % (Auto) 0.5 (0-2) % Neut # (Auto) 8000 H (7805-0908) /uL Lymph # (Auto) 3000 (1829-5018) /uL [place] # (Auto) 700 (0-900) /uL Eos # (Auto) 100 (0-450) /uL Baso # (Auto) 100 (0-100) /uL PT 28.8 H (9.4-12.5) SECONDS INR 2.5 H (0.9-1.3) Sodium 132 L (137-145) mmol/L Potassium 4.8 (3.4-5.1) mmol/L Chloride 107 (98-107) mmol/L Carbon Dioxide 18 L (22-32) mmol/L BUN 71 H (7-17) mg/dL Creatinine 2.21 H (0.52-1.04) mg/dL Estimated GFR 21 L (>60) mL/min BUN/Creatinine Ratio 32.1 H (6-22) Glucose 134 H (80-110) mg/dL Calcium 10.3 H (8.4-10.2) mg/dL Troponin I 0.012 (0.01-0.034) ng/mL Imaging Data CT scan - head: Radiologist's Impression: PROCEDURE: CT HEAD/BRAIN WO CON INDICATIONS: syncope TECHNIQUE: Noncontrast 4.5 mm thick angled axial sections acquired from the foramen magnum to the vertex, with coronal and sagittal reformats. For radiation dose reduction, the following was used: automated exposure control, adjustment of mA and/or kV according to patient size. COMPARISON: [facility], CT, HEAD WITHOUT CONTRAST, 05/18/2017, 18:01. [facility], CT, CT HEAD/BRAIN WO CON, 04/25/2018, 11:54. [facility], CT, CT HEAD/BRAIN WO CON, 09/03/2022, 15:37. FINDINGS: Image quality: Diagnostic. CSF spaces: Basal cisterns are patent. No extra-axial fluid collections. The ventricles are symmetric in size and shape. Brain: No intracranial bleeds or masses. There is cerebral volume loss for age, with resultant ventricular and sulcal prominence. There are periventricular and deep white matter chronic small vessel ischemic changes. There is intracranial internal carotid artery atherosclerosis. Skull and face: Calvarium and visualized facial bones appear intact, without suspicious lesions. Sinuses: Visualized sinuses and mastoids are clear. IMPRESSION: Unremarkable noncontrast head CT for age, similar to prior. No acute intracranial hemorrhage is seen. To the limits of this noncontrast study, no findings of intracranial masses or mass effect can be seen. ECG Data Attestation: I personally reviewed and interpreted this ECG as follows: MDM Narrative Medical decision making narrative: Patient is a 88-year-old female with history of CKD hypertension pacemaker on warfarin with recurrent syncope is brought in for syncope. Was at [employer] needed to use the restroom stood up had a syncopal episode unsure of head strike. Patient has been seen here multiple times for the exact same symptoms has been worked up previously for this has not been able to find a definitive reason. Patient with positive orthostatics prior to arrival, patient did have pacemaker interrogated which did not show any abnormalities, lab work imaging showed no acute finding. [place] syncope score low risk. Patient re-evaluated feeling completely back to baseline strict return precautions given safe for discharge home with outpatient follow up Discharge Plan Departure Patient Disposition: Home Clinical Impression: Recurrent syncope Activity Restrictions/Additional Instructions: Please read the discharge instructions sheet carefully and bring all papers to all doctor follow-up visits, as it may contain information that your doctor may want to see. Disease processes change and evolve, if your symptoms worsen or if you develop any new symptoms that are concerning to you please return for evaluation. Your evaluation today does not show any evidence of any life- threatening/serious illnesses requiring admission to the hospital or surgery. Please follow-up with your doctor for re-evaluation in approximately 1 day. Seek immediate medical attention for any worrisome symptoms. Prescriptions: No Action amlodipine 10 MG tablet 10 mg PO QDAY Qty: 0 aspirin 81 MG tablet,delayed release (DR/EC) 81 mg PO QDAY Qty: 0 Trimo-Lloyd Jelly 0.025-0.01 % gel 1 ea vaginal .q week Qty: 113.4 3RF Repatha SureClick 140 mg/mL pen injector SUBCUT Patient Comments: [NO ORIGINAL SIG] terazosin 2 mg capsule 2 mg PO DAILY Patient Comments: takes in evening warfarin 5 mg tablet 5 mg PO DAILY Rx Instructions: 2.5 mg on Thursday magnesium 250 mg tablet 500 mg PO DAILY losartan 100 mg tablet 100 mg PO DAILY gabapentin 300 mg capsule 300 mg PO BEDTIME L-Lysine 800 mg tablet 800 mg PO DAILY selenium 200 mcg tablet 100 mcg PO DAILY zinc 50 mcg tablet 50 mcg PO DAILY Vitamin C 1,000 mcg tablet 1,000 mcg PO DAILY quercetin tablet 1 tab PO DAILY hydrochlorothiazide 25 mg Tablet 25 mg PO DAILY Qty: 30 0RF Referrals: Dario Hernandez MD [Primary Care Provider] - Stand Alone Forms: Patient Portal/API
--- NOTE | 2023-12-03 10:49 | DI.RAD.S_ITS ---
PROCEDURE: XR CHEST 1V INDICATIONS: syncope TECHNIQUE: One view of the chest was acquired. COMPARISON: [facility], CR, XR CHEST 1V, 09/25/2023, 10:59. FINDINGS: Surgical changes and devices: Stable cardiac pacer. Lungs and pleura: Lungs are clear. No pleural effusions or pneumothorax. Mediastinum: Mediastinal contours appear normal. Heart size is normal. Bones and chest wall: No suspicious bony lesions. Overlying soft tissues appear unremarkable. IMPRESSION: No acute cardiopulmonary abnormality is seen. Dictated by: Dejah Campoverde MD, PhD on 12/03/2023 at 11:09 Approved by: Dejah Campoverde MD, PhD on 12/03/2023 at 11:09
--- NOTE | 2023-12-03 10:49 | EKG_ITS ---
[facility] [address] [place] [address] Test Date: 2023-12-03 Pat Name: Leisa Espinoza Department: [facility] Room: Gender: Female [employer]ist: : 1935 Requested By: Order Number: [id number] Reading MD: Ej Landers MD Measurements Intervals [place] Rate: 70 P: 69 [place]: 218 QRS: 59 QRSD: 88 T: 59 QT: 370 QTc: 399 Interpretive Statements Atrial-paced rhythm with prolonged AV conduction Electronically Signed On 12-03-2023 12:05:39 PDT by Ej Landers MD
--- NOTE | 2023-12-03 10:50 | DI.CT.S_ITS ---
PROCEDURE: CT HEAD/BRAIN WO CON INDICATIONS: syncope TECHNIQUE: Noncontrast 4.5 mm thick angled axial sections acquired from the foramen magnum to the vertex, with coronal and sagittal reformats. For radiation dose reduction, the following was used: automated exposure control, adjustment of mA and/or kV according to patient size. COMPARISON: [facility], CT, HEAD WITHOUT CONTRAST, 05/18/2017, 18:01. [facility], CT, CT HEAD/BRAIN WO CON, 04/25/2018, 11:54. [facility], CT, CT HEAD/BRAIN WO CON, 09/03/2022, 15:37. FINDINGS: Image quality: Diagnostic. CSF spaces: Basal cisterns are patent. No extra-axial fluid collections. The ventricles are symmetric in size and shape. Brain: No intracranial bleeds or masses. There is cerebral volume loss for age, with resultant ventricular and sulcal prominence. There are periventricular and deep white matter chronic small vessel ischemic changes. There is intracranial internal carotid artery atherosclerosis. Skull and face: Calvarium and visualized facial bones appear intact, without suspicious lesions. Sinuses: Visualized sinuses and mastoids are clear. IMPRESSION: Unremarkable noncontrast head CT for age, similar to prior. No acute intracranial hemorrhage is seen. To the limits of this noncontrast study, no findings of intracranial masses or mass effect can be seen. Dictated by: Sajan Torres M.D. on 12/03/2023 at 11:04 Approved by: Sajan Torres M.D. on 12/03/2023 at 11:05
[2023-12-03 10:58] LABS: Add Manual Diff / Slide Review NO; Basophils Absolute Auto 100 /uL (0-100); Basophils Percent Auto 0.5 % (0-2); Eosinophils Absolute Auto 100 /uL (0-450); Eosinophils Percent Auto 1.2 % (2-4); Hematocrit 29.2 % (36-46); Lymphocytes Absolute Auto 3000 /uL (1100-4500); Lymphocytes Percent Auto 25.2 % (25-40); Mean Corpuscular HGB Conc 34.4 % (30-36); Mean Corpuscular Hemoglobin 32.2 PG (26-34); Mean Corpuscular Volume 93.9 fL (80-100); Monocytes Absolute Auto 700 /uL (0-900); Monocytes Percent Auto 5.6 % (3-14); Neutrophils Absolute Auto 8000 /uL (1500-7000); Neutrophils Percent Auto 67.5 % (50-75); Platelet Count 256 X10^3/uL (150-400); Red Blood Cell Count 3.11 X10^6/uL (4.0-5.2); Red Cell Distribution Width 13.2 % (11.6-14.8); White Blood Cell Count 11.9 X10^3/uL (4.5-11.0)
[2023-12-03] MEDS: SODIUM CHLORIDE 0.9% 1,000 ML 1000 ML IV (10:58)
[2023-12-03 11:07] LABS: INR 2.5 (0.9-1.3); Prothrombin Time 28.8 SECONDS (9.4-12.5)
[2023-12-03 11:12] LABS: BUN Creatinine Ratio 32.1 (6-22); Blood Urea Nitrogen 71 mg/dL (7-17); Calcium 10.3 mg/dL (8.4-10.2); Carbon Dioxide 18 mmol/L (22-32); Chloride 107 mmol/L (98-107); Estimated Glomerular Filt Rate 21 mL/min (>60); Glucose 134 mg/dL (80-110); HEMOLYSIS < 15 (0-50); Potassium 4.8 mmol/L (3.4-5.1); Sodium 132 mmol/L (137-145)
[2023-12-03 11:24] LABS: Troponin I 0.012 ng/mL (0.01-0.034)
[2023-12-03] MEDS: SODIUM CHLORIDE 0.9% 1,000 ML 150 ML IV (11:54)
== END 2023-12-03 13:25 | disposition home or self-care (01) ==
PROVIDERS: Emergency Provider Student in an Organized Health Care Education/Training Program; PCP Family Medicine; Referring Provider Student in an Organized Health Care Education/Training Program
DX: R55 Syncope and collapse (principal); R42 Dizziness and giddiness; I10 Essential (primary) hypertension; Z95.0 Presence of cardiac pacemaker
CPT/HCPCS: 70450; 71045; 80048; 84484; 85025; 85610; 93005; 96360; 96361; 99284

== ENCOUNTER → 2023-12-15 10:53 | Outpatient (CLI) | payer MEDICARE, SELFPAY ==
[2022-09-03 17:23] VITALS: BMI 23.3
--- NOTE | 2023-12-15 10:54 | DI.ECHO.S_ITS ---
[facility] : : [address] : : [address] [address] : : [id number] : : Phone: [phone] Echocardiogram Report + + :Name: FRANK PENNINGTON Study Date: 12/15/2023 Height: 63 in : :[facility] ReadingLocation: Weight: 128 lb : : Gender: Female BSA: 1.6 m2 : :: 1935 Age: 88 yrs BP: 109/53 mmHg: :Reason For Study: Syncope : :Ordering Physician: RAMIRO : :CARL Performed By: Maria De Jesus Mehta : :Referring: CARL RUBIO : + + Interpretation Summary 1) Mildly increased left ventricular thickness (concentric) with small cavity size, normal wall motion, and normal systolic function (EF 65-70%). 2) Normal right ventricular size with low normal function. 3) There is mild aortic regurgitation. 4) Compared to the Echo done 09/04/2022, no significant change. Procedure: A two-dimensional transthoracic echocardiogram with color flow and Doppler was performed. The study quality was technically adequate. Comparison is made with the echocardiogram of 09/04/2022. The patient has a paced rhythm. The patient was in sinus rhythm with heart rates between 69-75 bpm during the exam. Left Ventricle: Left ventricular wall thickness is mildly increased. The left ventricular cavity is small. An intracavitary gradient is suspected. The ejection fraction is estimated to be 65-70%. Left ventricular systolic function appears normal without focal wall motion abnormalities. Diastolic parameters suggest a relaxation abnormality of the left ventricle, consistent with probable normal filling pressures. Right Ventricle: The right ventricle is normal size. Right ventricular systolic function is at the lower limits of normal. Atria: Both atria are normal in size. The thickening of interatrial septum suggests lipomatous hypertrophy. There is no Doppler evidence for an interatrial shunt. Mitral Valve: There is mild mitral annular calcification. The mitral valve leaflets are slightly calcified. There is no mitral valve stenosis. There is trace mitral regurgitation. Aortic Valve: The aortic valve is trileaflet. The aortic valve opens well. The aortic valve is mildly calcified. There is no aortic valve stenosis. There is mild aortic regurgitation. Tricuspid Valve: The tricuspid valve leaflets are thin and pliable. There is mild tricuspid regurgitation. The right ventricular systolic pressure is estimated to be at least 16 mmHg based on an estimated right atrial pressure of 3 mm Hg. Pulmonic Valve: The pulmonic valve leaflets are thin and pliable; valve motion is normal. There is a trace or physiologic amount of pulmonic regurgitation. Great Vessels: The aortic root is normal size. The ascending aorta is normal in size. The aortic arch could not be visualized. The pulmonary artery is not well visualized, but is probably normal size. The IVC is of normal diameter and collapses greater than 50% with a sniff. This suggests a low right atrial pressure of 3 mm Hg. Pericardium/ Pleura There is an anterior echo-free space consistent with a fat pad. There is no pericardial effusion. There is no pleural effusion. MMode/2D Measurements & Calculations LVIDd: 3.4 cm LVOT diam: 1.8 cm LVIDs: 1.5 cm Ao root diam: 3.1 cm FS: 55.7 % asc Aorta Diam: 3.3 cm EPSS: 0.38 cm IVSd: 1.2 cm LVPWd: 1.4 cm LV de los santos. diameter/BSA (cm/m^2): 2.1 LV sys. diameter/BSA (cm/m^2): 0.93 LA A2 area: 15.4 cm2 RA long axis: 5.1 cm LA A4 area: 20.5 cm2 RA area: 12.0 cm2 LA length (vol): 6.1 cm RA vol: 23.8 ml LA vol: 44.0 ml RA : 14.9 ml/m2 LA vol index: 27.5 ml/m2 IVC diam: 1.3 cm TAPSE: 1.3 cm Doppler Measurements & Calculations Ao V2 max: 151.8 cm/sec LVOT Max Rios: 159.5 cm/sec Ao V2 mean: 124.1 cm/sec LV V1 max P.2 mmHg Ao max P.2 mmHg LV V1 VTI: 28.8 cm Ao mean P.6 mmHg CONNER(I,D): 2.1 cm2 Ao V2 VTI: 34.4 cm CONNER(V,D): 2.6 cm2 sev ratio: 0.84 CONENR indexed to BSA (cm^2/m^2): 1.3 AI P1/2t: 519.0 msec AI dec slope: 178.2 cm/sec2 MV E max rios: 74.7 cm/sec TR max rios: 179.3 cm/sec MV A max rios: 112.6 cm/sec TR max P.0 mmHg MV E/A: 0.66 PA V2 max: 87.5 cm/sec Med Peak E' Rios: 2.6 cm/sec PA V2 mean: 51.5 cm/sec E/E' med: 29.1 PA mean P.3 mmHg Lat Peak E' Rios: 3.9 cm/sec PA pr(Accel): 36.2 mmHg E/E' lat: 19.4 E/e' average: 24.2 MV dec time: 0.39 sec MVA(VTI): 2.0 cm2 MV V2 mean: 73.0 cm/sec SV(LVOT): 71.2 ml MV mean P.4 mmHg MV V2 VTI: 34.8 cm Reading Physician:04:50 PM
== END ==
LOC: ECHO 10:53
PROVIDERS: PCP Family Medicine; Referring Provider Family Medicine; Visit Provider Family Medicine
DX: R55 Syncope and collapse (principal); I08.2 Rheumatic disorders of both aortic and tricuspid valves
CPT/HCPCS: 93306

== ENCOUNTER → 2023-12-22 09:37 | Outpatient (ROUT) | payer MEDICARE, SELFPAY ==
[2022-09-03 17:23] VITALS: BMI 23.3
[2023-12-22 09:49] LABS: INR 3.1 (0.9-1.3); Prothrombin Time 36.1 SECONDS (9.4-12.5)
== END ==
PROVIDERS: PCP Family Medicine; Visit Provider Family Medicine
DX: Z79.01 Long term (current) use of anticoagulants (principal); I48.20 Chronic atrial fibrillation, unspecified
CPT/HCPCS: 85610

== ENCOUNTER → 2024-01-14 12:39 | Outpatient (ROUT) | payer MEDICARE, SELFPAY ==
[2022-09-03 17:23] VITALS: BMI 23.3
[2024-01-14 12:55] LABS: Prothrombin Time 22.4 SECONDS (9.4-12.5)
== END ==
PROVIDERS: PCP Family Medicine; Visit Provider Family Medicine
DX: I48.20 Chronic atrial fibrillation, unspecified (principal); Z79.01 Long term (current) use of anticoagulants
CPT/HCPCS: 85610

== ENCOUNTER → 2024-01-27 14:52 | Outpatient (ROUT) | payer MEDICARE, SELFPAY ==
[2022-09-03 17:23] VITALS: BMI 23.3
[2024-01-27 15:06] LABS: INR 2.8 (0.9-1.3); Prothrombin Time 30.8 SECONDS (9.4-12.5)
== END ==
PROVIDERS: PCP Family Medicine; Visit Provider Family Medicine
DX: I48.20 Chronic atrial fibrillation, unspecified (principal); Z79.01 Long term (current) use of anticoagulants
CPT/HCPCS: 85610

== ENCOUNTER 2024-02-19 14:23 | Emergency (ER) | payer MEDICARE, SELFPAY ==
[2022-09-03 17:23] VITALS: BMI 23.3
[2024-02-19] VITALS (13 sets, daily range): BP systolic 104–168; BP diastolic 48–64; PULSE 69–76; RESP 14–26; TEMP 36.5; O2SAT 96–99; BMI 22.4
--- NOTE | 2024-02-19 14:44 | DI.RAD.S_ITS ---
PROCEDURE: XR CHEST 1V INDICATIONS: chest pain TECHNIQUE: One view of the chest was acquired. COMPARISON: [facility], CR, XR CHEST 1V, 12/03/2023, 10:51. [facility], CR, XR CHEST 1V, 09/25/2023, 10:59. FINDINGS: Surgical changes and devices: Pacemaking device with dual chamber leads stable over time. Lungs and pleura: Lungs are clear. No pleural effusions or pneumothorax. Mediastinum: Mediastinal contours appear normal. Heart size is normal. Bones and chest wall: No suspicious bony lesions. Overlying soft tissues appear unremarkable. IMPRESSION: No acute cardiopulmonary abnormality is seen. Pacemaking device and leads appear normal. Dictated by: Shahbaz Green M.D. on 02/19/2024 at 15:05 Approved by: Shahbaz Green M.D. on 02/19/2024 at 15:06
[2024-02-19 14:54] LABS: INR 2.3 (0.9-1.3)
[2024-02-19 14:56] LABS: PTT Partial Thromboplastin Tim 42 SECONDS (25.1-36.5)
[2024-02-19 14:58] LABS: Alanine Aminotransferase 23 IU/L (<35); Albumin 4.1 g/dL (3.5-5.0); Albumin Globulin Ratio 1.4 (1.0-2.8); Alkaline Phosphatase 108 U/L (38-126); Aspartate Aminotransferase 37 IU/L (14-36); BUN Creatinine Ratio 34.4 (6-22); Bilirubin Total 0.4 mg/dL (0.2-1.3); Blood Urea Nitrogen 77 mg/dL (7-17); Calcium 10.4 mg/dL (8.4-10.2); Carbon Dioxide 19 mmol/L (22-32); Chloride 106 mmol/L (98-107); Creatine Kinase 64 U/L (30-135); Estimated Glomerular Filt Rate 21 mL/min (>60); Globulin 2.9 g/dL (1.7-4.1); Glucose 147 mg/dL (80-110); HEMOLYSIS < 15 (0-50); Lipase 326 U/L (23-300); Magnesium 2.1 mg/dL (1.6-2.3); Potassium 4.9 mmol/L (3.4-5.1); Sodium 136 mmol/L (137-145)
[2024-02-19 15:03] LABS: Add Manual Diff / Slide Review NO; Basophils Absolute Auto 100 /uL (0-100); Basophils Percent Auto 0.5 % (0-2); Eosinophils Absolute Auto 100 /uL (0-450); Eosinophils Percent Auto 0.8 % (2-4); Hematocrit 34.8 % (36-46); Hemoglobin 11.9 g/dL (12.0-16.0); Lymphocytes Absolute Auto 3000 /uL (1100-4500); Lymphocytes Percent Auto 26.4 % (25-40); Mean Corpuscular HGB Conc 34.1 % (30-36); Mean Corpuscular Hemoglobin 32.5 PG (26-34); Mean Corpuscular Volume 95.5 fL (80-100); Monocytes Absolute Auto 500 /uL (0-900); Monocytes Percent Auto 4.6 % (3-14); Neutrophils Absolute Auto 7600 /uL (1500-7000); Neutrophils Percent Auto 67.7 % (50-75); Platelet Count 264 X10^3/uL (150-400); Red Blood Cell Count 3.65 X10^6/uL (4.0-5.2); Red Cell Distribution Width 12.9 % (11.6-14.8); White Blood Cell Count 11.3 X10^3/uL (4.5-11.0)
[2024-02-19 15:09] LABS: NT-proBNP (BNP-Adult 18+) 494 pg/mL (<450); Troponin I < 0.012 ng/mL (0.01-0.034)
--- NOTE | 2024-02-19 15:24 | EKG_ITS ---
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
--- NOTE | 2024-02-19 16:45 | ED_ITS ---
HPI - General Adult General Chief complaint: Syncope Stated complaint: Near syncope Time Seen by Provider: 02/19/24 16:44 Source: patient and EMS Mode of arrival: EMS History of Present Illness HPI narrative: 88-year-old female with history of [employer] pacemaker, felt like she was wanted to have a bowel movement earlier today, then developed generalized weakness, felt like that she might pass out, transient less than a minute, resolved spontaneously without any specific maneuvers or treatments, no associated shortness of breath, no associated palpitations, she had not feel any shocking like sensation to her chest in the area of the pacemaker, no recent diarrhea, no black or red stools, no dysuria or frequency of urination. She feels recovered from the event. Related Data Home Medications Medication Instructions Recorded Confirmed amlodipine 10 mg tablet 10 mg PO QDAY ##0 05/18/17 02/05/24 aspirin 81 mg tablet,delayed 81 mg PO QDAY ##0 05/19/17 02/05/24 release losartan 100 mg tablet 100 mg PO DAILY 12/11/17 02/05/24 magnesium 250 mg tablet 500 mg PO DAILY 12/11/17 02/05/24 terazosin 2 mg capsule 2 mg PO DAILY 12/11/17 02/05/24 warfarin 5 mg tablet 5 mg PO DAILY 12/11/17 02/05/24 L-Lysine 800 mg PO DAILY 09/04/22 02/05/24 Vitamin C 1,000 mcg PO DAILY 09/04/22 02/05/24 quercetin 1 tab PO DAILY 09/04/22 02/05/24 selenium 100 mcg PO DAILY 09/04/22 02/05/24 zinc 50 mcg PO DAILY 09/04/22 02/05/24 gabapentin 300 mg capsule 300 mg PO BEDTIME 07/08/23 02/05/24 evolocumab 140 mg/mL subcutaneous mg SUBCUT 10/23/23 02/05/24 pen injector (Tonny Damon) Previous Rx's Medication Instructions Recorded hydrochlorothiazide 25 mg tablet 25 mg PO DAILY #30 tabs 09/04/22 oxyquinoline 0.025 %-sodium lauryl 1 ea vaginal .q week #113.4 grams 02/10/24 sulfate 0.01 % vaginal gel (Trimo-Lloyd Jelly) Allergies Allergy/AdvReac Type Severity Reaction Status Date / Time No Known Drug Allergies Allergy Verified 02/15/24 15:17 Patient History Medical History Kidney disease (194) HLD (hyperlipidemia) Carotid artery stenosis Pelvic relaxation Factor 5 Leiden mutation, heterozygous Vision disorder Hearing loss Carpal tunnel syndrome (~2010) Measles (~1948) Kidney disease (~194) Hypertension (~2004) Surgical History History of appendectomy (~1957) Social History household members: children Smoking Status: Never smoker alcohol intake: never Smoking Status: Never smoker alcohol intake frequency: other Exam Narrative Exam Narrative: GENERAL: Well-developed patient, in mild distress. HEAD: Atraumatic. Normocephalic. EYES: Pupils equal round and reactive. Extraocular motions intact. No scleral icterus. No injection or drainage. ENT: Nose without bleeding, purulent drainage. Throat without erythema, tonsillar hypertrophy or exudate. Airway patent. NECK: Trachea midline. Non tender CARDIOVASCULAR: Regular rate and rhythm without murmurs, gallops, or rubs. RESPIRATORY: Clear to auscultation. Breath sounds equal bilaterally. No wheezes, rales, or rhonchi. Anterior chest pacemaker site without redness or tenderness or crepitance GASTROINTESTINAL: Abdomen soft, non-tender, nondistended. EXTREMITIES: No edema or joint tenderness. BACK: Nontender without deformity or crepitance. No flank tenderness. NEURO: AOx3. Motor functions grossly nonfocal SKIN: No rash or erythema of visible areas Initial Vital Signs Initial Vital Signs: Vital Signs Temperature 97.7 F 02/19/24 14:31 Pulse Rate 70 02/19/24 14:31 Respiratory Rate 20 02/19/24 14:31 Blood Pressure 142/64 H 02/19/24 14:31 Pulse Oximetry 97 02/19/24 14:31 Oxygen Delivery Method Room Air 02/19/24 14:31 Course Orders Ordered: ED Orders 02/19/24 14:20 Complete Blood Count AUTO DIFF Stat Comprehensive Metabolic Panel Stat Lipase Stat Magnesium Stat NT-proBNP (BNP-Adult 18+) Stat PTT Partial Thromboplastin [place] Stat Prothrombin Time INR Stat Troponin & CK Cardiac Panel Stat 02/19/24 14:44 XR chest 1V Stat EKG-12 Lead Stat 02/19/24 17:14 Troponin I Stat Vital Signs Vital signs: Vital Signs - 8 hr 02/19/24 14:31 02/19/24 14:37 02/19/24 14:38 Temperature 97.7 F Pulse Rate 70 74 Respiratory Rate 20 Blood Pressure 142/64 H 140/63 Pulse Oximetry 97 99 Oxygen Delivery Method Room Air 02/19/24 14:38 02/19/24 15:00 02/19/24 15:00 Temperature Pulse Rate 71 76 Respiratory Rate 26 H 24 Blood Pressure 168/64 H Pulse Oximetry 99 98 Oxygen Delivery Method 02/19/24 15:30 02/19/24 15:31 02/19/24 15:31 Temperature Pulse Rate 69 69 Respiratory Rate 19 17 Blood Pressure 105/48 L Pulse Oximetry 96 96 Oxygen Delivery Method 02/19/24 16:03 02/19/24 16:05 02/19/24 16:05 Temperature Pulse Rate 74 69 Respiratory Rate 18 Blood Pressure 140/60 Pulse Oximetry Oxygen Delivery Method 02/19/24 16:30 02/19/24 16:31 02/19/24 16:31 Temperature Pulse Rate 69 69 Respiratory Rate 15 21 Blood Pressure 115/53 L Pulse Oximetry 97 96 Oxygen Delivery Method 02/19/24 17:00 02/19/24 17:00 02/19/24 17:30 Temperature Pulse Rate 69 69 Respiratory Rate 14 17 Blood Pressure 114/53 L Pulse Oximetry 97 97 Oxygen Delivery Method 02/19/24 17:30 02/19/24 18:00 02/19/24 18:00 Temperature Pulse Rate 69 Respiratory Rate 15 Blood Pressure 104/49 L 111/54 L Pulse Oximetry 97 Oxygen Delivery Method Medical Decision Making Lab Data Lab results reviewed: Yes I reviewed the patient's lab results. Lab results narrative: White blood cell count 09222, hemoglobin 11.9, platelets adequate, BUN 77, creatinine 2.24, glucose 147. Electrolytes unremarkable. Liver functions show slight AST elevation otherwise unremarkable. Lipase 326 noted. BNP 494. Troponin negative. 02/19/24 14:20 02/19/24 14:20 Labs: Lab Results 02/19/24 02/19/24 Range/Units 14:20 17:14 WBC 11.3 H (4.5-11.0) X10^3/uL RBC 3.65 L (4.0-5.2) X10^6/uL Hgb 11.9 L (12.0-16.0) g/dL Hct 34.8 L (36-46) % MCV 95.5 (80-100) fL MCH 32.5 (26-34) PG MCHC 34.1 (30-36) % RDW 12.9 (11.6-14.8) % Plt Count 264 (150-400) X10^3/uL Neut % (Auto) 67.7 (50-75) % Lymph % (Auto) 26.4 (25-40) % [place] % (Auto) 4.6 (3-14) % Eos % (Auto) 0.8 L (2-4) % Baso % (Auto) 0.5 (0-2) % Neut # (Auto) 7600 H (6299-5205) /uL Lymph # (Auto) 3000 (8963-4636) /uL [facility] # (Auto) 500 (0-900) /uL Eos # (Auto) 100 (0-450) /uL Baso # (Auto) 100 (0-100) /uL PT 25.0 H (9.4-12.5) SECONDS INR 2.3 H (0.9-1.3) APTT 42 H (25.1-36.5) SECONDS Sodium 136 L (137-145) mmol/L Potassium 4.9 (3.4-5.1) mmol/L Chloride 106 (98-107) mmol/L Carbon Dioxide 19 L (22-32) mmol/L BUN 77 H (7-17) mg/dL Creatinine 2.24 H (0.52-1.04) mg/dL Estimated GFR 21 L (>60) mL/min BUN/Creatinine Ratio 34.4 H (6-22) Glucose 147 H (80-110) mg/dL Calcium 10.4 H (8.4-10.2) mg/dL Magnesium 2.1 (1.6-2.3) mg/dL Total Bilirubin 0.4 (0.2-1.3) mg/dL AST 37 H (14-36) IU/L ALT 23 (<35) IU/L Alkaline Phosphatase 108 (38-126) U/L Total Creatine Kinase 64 (30-135) U/L Troponin I < 0.012 0.015 (0.01-0.034) ng/mL NT-Pro-B Natriuret Pep 494 H (<450) pg/mL Total Protein 7.0 (6.3-8.2) g/dL Albumin 4.1 (3.5-5.0) g/dL Globulin 2.9 (1.7-4.1) g/dL Albumin/Globulin Ratio 1.4 (1.0-2.8) Lipase 326 H (23-300) U/L Imaging Data Chest x-ray: Radiologist's Impression: [address] [address] XRay Report Signed Patient: Leisa Espinoza MR#: [id number] : 1935 Acct:[id number] Age/Sex: 88 / F Date of Service: 02/19/24 Loc: ED Accession Number: [id number] Procedure: XR chest 1V Ordering Provider: Ganesh Jack MD PROCEDURE: XR CHEST 1V INDICATIONS: chest pain TECHNIQUE: One view of the chest was acquired. COMPARISON: [facility], CR, XR CHEST 1V, 12/03/2023, 10:51. [facility], CR, XR CHEST 1V, 09/25/2023, 10:59. FINDINGS: Surgical changes and devices: Pacemaking device with dual chamber leads stable over time. Lungs and pleura: Lungs are clear. No pleural effusions or pneumothorax. Mediastinum: Mediastinal contours appear normal. Heart size is normal. Bones and chest wall: No suspicious bony lesions. Overlying soft tissues appear unremarkable. IMPRESSION: No acute cardiopulmonary abnormality is seen. Pacemaking device and leads appear normal. Dictated by: Shahbaz Green M.D. on 02/19/2024 at 15:05 Approved by: Shahbaz Green M.D. on 02/19/2024 at 15:06 ECG Data Attestation: I personally reviewed and interpreted this ECG as follows: Interpretation: Atrial paced rhythm with ventricular rate 70, no obvious ST segment elevation changes. MO 188, QRS 80, QTC 436. MDM Narrative Medical decision making narrative: 88-year-old female had near syncopal episode with preceding sensation that she needed to have a bowel movement, no incontinence, symptoms resolved, short duration less than one minute duration, no fevers or chills. No associated palpitations or focal weakness, no diaphoresis or chest discomfort. EKG shows paced rhythm, initial troponin negative. We will interrogate her pacemaker, and repeat interval troponin. Continue cardiac monitoring. Patient and family agreeable to this plan Phone call from [employer], patient has dual chamber pacemaker with 9 years left on current battery, no abnormal recent functions. Of note she did have very brief 3 second and 6 second episodes of RVR on 02/12/24, apparently asymptomatic, but no ectopy or abnormal rhythms today. Repeat troponin also negative. Home with family, further evaulation for now as an outpatient, return [facility] discussed Discharge Plan Departure Patient Disposition: Home Clinical Impression: Near syncope Activity Restrictions/Additional Instructions: Near-syncope episode earlier today, brief and resolved, onset after he felt like he might need to have a bowel movement, no incontinence of urine or stool, recovery without specific maneuvers or medications. EKG shows paced rhythm. Serial blood tests not suggestive of heart attack at this time. Interrogation was made of your pacemaker, which was reassuring, incidentally noted on 02/12/2024 with 2 episodes of brief seconds duration only tachycardia of unclear significance. No abnormalities noted that would have prompted near-syncope episode today. Further testing and evaluation as an outpatient for now. Discharged home with your family. Return to this/nearest emergency department for any change worsening symptoms or any concerns prior Prescriptions: No Action amlodipine 10 MG tablet 10 mg PO QDAY Qty: 0 aspirin 81 MG tablet,delayed release (DR/EC) 81 mg PO QDAY Qty: 0 Trimo-Lloyd Jelly 0.025-0.01 % gel 1 ea vaginal .q week Qty: 113.4 3RF Repatha SureClick 140 mg/mL pen injector SUBCUT Patient Comments: [NO ORIGINAL SIG] terazosin 2 mg capsule 2 mg PO DAILY Patient Comments: takes in evening warfarin 5 mg tablet 5 mg PO DAILY Rx Instructions: 2.5 mg on Thursday magnesium 250 mg tablet 500 mg PO DAILY losartan 100 mg tablet 100 mg PO DAILY gabapentin 300 mg capsule 300 mg PO BEDTIME L-Lysine 800 mg tablet 800 mg PO DAILY selenium 200 mcg tablet 100 mcg PO DAILY zinc 50 mcg tablet 50 mcg PO DAILY Vitamin C 1,000 mcg tablet 1,000 mcg PO DAILY quercetin tablet 1 tab PO DAILY hydrochlorothiazide 25 mg Tablet 25 mg PO DAILY Qty: 30 0RF Referrals: Dario Hernandez MD [Primary Care Provider] - Stand Alone Forms: Patient Portal/API/Survey
[2024-02-19 17:47] LABS: Troponin I 0.015 ng/mL (0.01-0.034)
== END 2024-02-19 18:29 | disposition home or self-care (01) ==
PROVIDERS: Emergency Provider Emergency Medicine; PCP Family Medicine
DX: R55 Syncope and collapse (principal)
CPT/HCPCS: 36415; 71045; 80053; 82550; 83690; 83735; 83880; 84484; 85025; 85610; 85730; 93005; 99283; 99284

== ENCOUNTER → 2024-03-04 16:42 | Outpatient (ROUT) | payer MEDICARE, SELFPAY ==
[2022-09-03 17:23] VITALS: BMI 23.3
[2024-03-04 16:49] LABS: INR 2.2 (0.9-1.3); Prothrombin Time 24.4 SECONDS (9.4-12.5)
== END ==
PROVIDERS: PCP Family Medicine; Visit Provider Family Medicine
DX: I48.20 Chronic atrial fibrillation, unspecified (principal); Z79.01 Long term (current) use of anticoagulants
CPT/HCPCS: 85610

== ENCOUNTER → 2024-04-01 12:12 | Outpatient (ROUT) | payer OTHER, SELFPAY ==
[2022-09-03 17:23] VITALS: BMI 23.3
[2024-04-01 12:36] LABS: INR 2.2 (0.9-1.3)
== END ==
PROVIDERS: PCP Family Medicine; Visit Provider Family Medicine
DX: I48.20 Chronic atrial fibrillation, unspecified (principal); Z79.01 Long term (current) use of anticoagulants
CPT/HCPCS: 85610

== ENCOUNTER 2024-04-18 06:22 | Day surgery (SDC) | payer OTHER, SELFPAY ==
[2022-09-03 17:23] VITALS: BMI 23.3
[2024-04-12 10:32] VITALS: BMI 22.4
[2024-04-18] VITALS (7 sets, daily range): BP systolic 115–184; BP diastolic 48–84; PULSE 67–70; RESP 10–16; TEMP 36.2–36.6; O2SAT 96–100; BMI 21.6
--- NOTE | 2024-04-18 | PATH_ITS ---
[facility] Accession Number: [id number] No. of containers..01 Tissue . 01 Material submitted: . endometrium - ENDOMETRIAL POLYPS . 01 Diagnosis: ENDOMETRIAL POLYPS, CURETTINGS: Fragments of benign endometrial polyps. Background inactive endometrium and focal changes consistent with chronic endometritis. Negative for endometrial intraepithelial neoplasia or malignancy. MRV 04/20/2024 1527 Local . 01 Electronically signed: . Jacqueline Andujar MD, Pathologist NPI- [id number] . 01 Gross description: . ENDOMETRIAL POLYPS: Received in formalin are minute fragments of mucoid and hemorrhagic material measuring 2.0 x 1.0 x 0.2 cm in aggregate. Submitted in toto in 1 cassette. /CHRISSY 04/19/2024 0049 Local . 01 Pathologist provided ICD-10: N84.0, N95.0 . 01 CPT . 276084 Specimen Comment: A courtesy copy of this report has been sent to [phone] Performed at: [address] [address], [place], [place] [id number] MD Francois Draper MD Phone: [phone]
--- NOTE | 2024-04-18 07:03 | P.HPOB_ITS ---
History of Present Illness History of Present Illness Reason for admission: vaginal bleeding Narrative: Leisa Espinoza is a 88 year old female with postmenopausal bleeding She presents today for a D&C hysteroscopy [facility] Medical History (Updated 04/12/24 @ 12:26 by Monet Carnes RN) CKD (chronic kidney disease), stage IV PAF (paroxysmal atrial fibrillation) NSVT (nonsustained ventricular tachycardia) SSS (sick sinus syndrome) History of DVT (deep vein thrombosis) Pacemaker (02/13/23) Kidney disease (1943) HLD (hyperlipidemia) Carotid artery stenosis Pelvic relaxation Factor 5 Leiden mutation, heterozygous Vision disorder Hearing loss Carpal tunnel syndrome (~2010) Measles (~1948) Kidney disease (~1943) Hypertension (~2004) Surgical History (Updated 04/12/24 @ 10:33 by Monet Carnes RN) History of hysteroscopy (03/31/22) History of appendectomy (~1957) Social History household members: none Smoking Status: Former smoker alcohol intake: never Meds Home Medications and Allergies Home Medications Medication Instructions Recorded Confirmed Type aspirin 81 mg tablet,delayed 81 mg PO QDAY ##0 05/19/17 04/18/24 History release losartan 100 mg tablet 100 mg PO DAILY 12/11/17 04/18/24 History magnesium 250 mg tablet 500 mg PO DAILY 12/11/17 02/26/24 History warfarin 5 mg tablet 5 mg PO DAILY 12/11/17 04/18/24 History L-Lysine 800 mg PO DAILY 09/04/22 02/26/24 History Vitamin C 1,000 mcg PO DAILY 09/04/22 02/26/24 History quercetin 1 tab PO DAILY 09/04/22 02/26/24 History selenium 100 mcg PO DAILY 09/04/22 02/26/24 History zinc 50 mcg PO DAILY 09/04/22 02/26/24 History gabapentin 300 mg capsule 300 mg PO BEDTIME 07/08/23 04/18/24 History evolocumab 140 mg/mL subcutaneous 140 mg SUBCUT Q2W 10/23/23 04/18/24 History pen injector (Tonny Damon) oxyquinoline 0.025 %-sodium lauryl 1 ea vaginal .q week #113.4 grams 02/10/24 04/18/24 Rx sulfate 0.01 % vaginal gel (Trimo-Lloyd Jelly) labetalol 100 mg tablet 100 mg PO BID 04/18/24 04/18/24 History Allergies Allergy/AdvReac Type Severity Reaction Status Date / Time No Known Drug Allergies Allergy Verified 04/18/24 06:47 Exam Narrative Exam Narrative: Gen: NAD Lungs: CTA bilat CV: RRR Abd: Well healed scar. Uterus not palpable in abdomen Bimanual exam: 6 wk size anteverted uterus. No adnexal masses or tenderness Ext: No edema Assessment & Plan Assessment & Plan narrative: Assessment: 88 with [employer] bleeding On anticoagulation Prolapse, uses pessary Pt with URI sx's. Influenza, Covid, and RSV negative Plan: D&C hysteroscopy The risks, benefits and alternatives to the procedure were explained to the patient. The risks including bleeding, infection, and uterine perforation. She understands these risks and agrees to proceed. A full PAR-Q was held and consent form was signed. Time-Based Coding :: [TOTAL MINUTES] spent with patient and on the chart (including review of chart, obtaining history, exam, reviewing outside data, placing orders, documenting exam and treatment plan, and counseling patient) on [DATE].
--- NOTE | 2024-04-18 07:08 | PM.PREOP ---
Pre-operative Note Interval Note History & Physical reviewed/Exam performed by Physician: Yes Changes to H&P: No H&P completed within 30 days and has changed as indicated here:: 04/18/24
[2024-04-18] MEDS: LACTATED RINGERS 1,000 ML 21 ML IV (07:13)
[2024-04-18 07:26] LABS: Influenza A - CEPHEID Flu A NEGATIVE (NEGATIVE); Influenza B - CEPHEID Flu B NEGATIVE (NEGATIVE); Respiratory Syncytial Virus Negative (Negative)
[2024-04-18 07:27] LABS: COVID-19 CEPHEID 4-PLEX PCR Negative (Negative)
--- NOTE | 2024-04-18 08:03 | SUR.OPER ---
Lithotomy on padded OR bed, head on pillow, arms secured on padded arm boards at <90 degrees abduction. Legs secured in padded yellow fins stirrups.
--- NOTE | 2024-04-18 08:23 | P.OP_ITS ---
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 Prolapse, uses pessary. Surgeon: Marietta Lee Anesthesia Type: General (LMA) Operative Notes Findings: 6 week size Anteverted uterus Both fallopian tube ostia observed Multiple polyps, near right cornua, near left cornua, left body of uterus Closure Type: not applicable Specimen(s): endometrial polyp (x3) Estimated blood loss (mL): 3 Blood products transfused: none Procedure in detail: After informed consent was obtained, the patient was taken to the operating room where she was placed in the dorsal supine position. After adequate LMA general anesthesia was achieved, she was placed in the dorsal lithotomy position, and prepped and draped in the usual sterile fashion. A time-out was performed. A bimanual exam was performed which revealed a 6 week size anteverted uterus. A bivalve speculum was placed into the vagina and the anterior lip of the cervix was grasped with a single-tooth tenaculum. The cervical os was sequentially dilated to the # 8 Hegar dilator. The MyoSure hysteroscope passed easily into the endometrial cavity. Both fallopian tube ostia were observed. There were 3 polyps observed. One was near the right cornua. One was near the left cornua. The third one was at the right mid body of the uterus. Using the MyoSure Lite, all of the polyps were resected. The remainder of the uterine cavity appeared atrophic. The instruments were removed from the uterus. The single-tooth tenaculum was removed from the anterior lip of the cervix. The bivalve speculum was removed from the vagina. Sponge, lap, and instrument counts were correct x2. The patient tolerated the procedure well, and was taken to PACU in stable condition. Fluid deficit: 0 Volume collected: 1017 cc Cutting time: 18 sec Pressure: 80mm Hg Complications: none Post-operative Condition: stable Disposition: PACU Plan for aftercare: Home after recovery
== END 2024-04-18 09:40 | disposition home or self-care (01) ==
PROVIDERS: PCP Family Medicine; Referring Provider Obstetrics & Gynecology; Visit Provider Obstetrics & Gynecology
PROC: 0UDB8ZZ Extraction of Endometrium, Via Natural or Artificial Opening Endoscopic (ICD-10-PCS; CPT 58558; principal; 2024-04-18 07:45)
DX: N95.0 Postmenopausal bleeding (principal); N84.0 Polyp of corpus uteri; Z87.891 Personal history of nicotine dependence
CPT/HCPCS: 58558; 0241U; J1100; J2405; J2704; J3010

== ENCOUNTER → 2024-05-03 15:59 | Outpatient (ROUT) | payer OTHER, SELFPAY ==
[2022-09-03 17:23] VITALS: BMI 23.3
[2024-05-03 16:05] LABS: INR 2.4 (0.9-1.3); Prothrombin Time 26.7 SECONDS (9.4-12.5)
== END ==
PROVIDERS: PCP Family Medicine; Visit Provider Family Medicine
DX: I48.20 Chronic atrial fibrillation, unspecified (principal); Z79.01 Long term (current) use of anticoagulants
CPT/HCPCS: 85610

== ENCOUNTER → 2024-07-04 14:43 | Outpatient (ROUT) | payer OTHER, SELFPAY ==
[2022-09-03 17:23] VITALS: BMI 23.3
[2024-07-04 14:50] LABS: INR 2.9 (0.9-1.3); Prothrombin Time 32.4 SECONDS (9.4-12.5)
== END ==
PROVIDERS: PCP Family Medicine; Visit Provider Family Medicine
DX: I48.20 Chronic atrial fibrillation, unspecified (principal); Z79.01 Long term (current) use of anticoagulants
CPT/HCPCS: 85610

== ENCOUNTER → 2024-10-10 10:43 | Outpatient (ROUT) | payer OTHER, SELFPAY ==
[2024-08-24 12:01] VITALS: BMI 23.3
[2024-10-10 11:01] LABS: INR 3.3 (0.9-1.3); Prothrombin Time 36.1 SECONDS (9.4-12.5)
== END ==
PROVIDERS: PCP Family Medicine; Visit Provider Family Medicine
DX: I48.20 Chronic atrial fibrillation, unspecified (principal)
CPT/HCPCS: 85610

== ENCOUNTER → 2024-11-14 08:23 | Outpatient (CLI) | payer OTHER, SELFPAY ==
[2024-08-24 12:01] VITALS: BMI 23.3
--- NOTE | 2024-11-14 08:25 | DI.US.S_ITS ---
PROCEDURE: US PELVIC COMPLETE INDICATIONS: postmenopausal bleeding TECHNIQUE: Real-time scanning was performed of the pelvic organs, with image documentation. Patient declined endovaginal scanning. COMPARISON: [facility], US, US PELVIC COMPLETE, 03/04/2022, 9:49. FINDINGS: Uterus: Uterus is anteverted and normal in size at 5.5 x 2.2 x 2.6 cm. The myometrium echotexture is poorly visualized. Endometrium is not well seen on transabdominal scanning. Ovaries: Ovaries are not visualized. No adnexal mass is seen on trans abdominal imaging. Other: No pathologic free abdominal or pelvic fluid. IMPRESSION: No acute sonographic abnormality identified in the pelvis on transabdominal imaging. Approved by: Dave Lopez M.D. on 11/14/2024 at 15:22
== END ==
LOC: US 08:24
PROVIDERS: PCP Family Medicine; Referring Provider Family Medicine; Visit Provider Obstetrics & Gynecology
DX: N95.0 Postmenopausal bleeding (principal)
CPT/HCPCS: 76856

== ENCOUNTER → 2024-11-23 09:06 | Outpatient (CLI) | payer OTHER, SELFPAY ==
[2024-08-24 12:01] VITALS: BMI 23.3
--- NOTE | 2024-11-23 09:07 | DI.US.S_ITS ---
PROCEDURE: US CAROTID DOPPLER BI INDICATIONS: CAROTID ARTERY STENOSIS TECHNIQUE: Color and pulse Doppler interrogation was performed of both carotid systems, with image documentation and velocity measurements. COMPARISON: [facility], US, US CAROTID DOPPLER BI, 11/17/2023, 15:55. FINDINGS: Stenosis calculations are based on SRU (Society [employer] in Ultrasound) criteria. Right side: Brachial blood pressure: 94/54 mm Hg. Common carotid artery peak systolic velocity: 74 cm/sec. Internal carotid artery peak systolic velocity: 110 cm/sec. Internal carotid artery end diastolic velocity: 13 cm/sec. External carotid artery peak systolic velocity: 333 cm/sec. ICA/CCA peak systolic ratio: 1.5 . Delacruz scale imaging description: Large amount of plaque seen in the distal CCA, carotid bulb as well as the ECA. Percent internal carotid artery stenosis: 1-49% . Vertebral artery: Flow direction is antegrade. Left side: Brachial blood pressure: 115/57 mm Hg. Common carotid artery peak systolic velocity: 112 cm/sec. Internal carotid artery peak systolic velocity: 126 cm/sec. Internal carotid artery end diastolic velocity: 3 0 cm/sec. External carotid artery peak systolic velocity: 148 cm/sec. ICA/CCA peak systolic ratio: 1.1 . Delacruz scale imaging description: Moderate amount of plaque in the distal CCA, proximal ICA and ECA Percent internal carotid artery stenosis: 1 the Jude 9% . Vertebral artery: Flow direction is antegrade. IMPRESSION: 1. In the right carotid artery, there is 1-49% stenosis based on peak systolic velocity criteria. 2. In the left carotid artery, there is 1-49% stenosis based on peak systolic velocity criteria. 3. Antegrade vertebral arteries. 4. 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 Lower velocity in the left ECA at this time, may be due to limitations secondary to plaque and lower blood pressure. Dictated by: Eduardo Fong M.D. on 11/23/2024 at 20:37 Approved by: Eduardo Fong M.D. on 11/23/2024 at 20:48
== END ==
LOC: US 09:06
PROVIDERS: PCP Family Medicine; Referring Provider Internal Medicine Cardiovascular Disease; Visit Provider Internal Medicine Cardiovascular Disease
DX: I65.23 Occlusion and stenosis of bilateral carotid arteries (principal)
CPT/HCPCS: 93880

== ENCOUNTER → 2024-11-29 10:17 | Outpatient (ROUT) | payer OTHER, SELFPAY ==
[2024-08-24 12:01] VITALS: BMI 23.3
[2024-11-29 10:35] LABS: INR 3.0 (0.9-1.3); Prothrombin Time 32.9 SECONDS (9.4-12.5)
== END ==
PROVIDERS: PCP Family Medicine; Visit Provider Family Medicine
DX: I48.20 Chronic atrial fibrillation, unspecified (principal)
CPT/HCPCS: 85610

== ENCOUNTER → 2024-12-22 14:15 | Outpatient (ROUT) | payer OTHER, SELFPAY ==
[2024-08-24 12:01] VITALS: BMI 23.3
[2024-12-22 14:28] LABS: INR 2.9 (0.9-1.3); Prothrombin Time 32.2 SECONDS (9.4-12.5)
== END ==
PROVIDERS: PCP Family Medicine; Visit Provider Family Medicine
DX: I48.20 Chronic atrial fibrillation, unspecified (principal)
CPT/HCPCS: 85610

== ENCOUNTER → 2025-01-17 14:12 | Outpatient (ROUT) | payer OTHER, SELFPAY ==
[2024-08-24 12:01] VITALS: BMI 23.3
[2025-01-17 14:26] LABS: INR 4.1 (0.9-1.3); Prothrombin Time 44.7 SECONDS (9.4-12.5)
== END ==
PROVIDERS: PCP Family Medicine; Visit Provider Family Medicine
DX: I48.20 Chronic atrial fibrillation, unspecified (principal)
CPT/HCPCS: 85610

== ENCOUNTER → 2025-01-31 14:12 | Outpatient (ROUT) | payer OTHER, SELFPAY ==
[2024-08-24 12:01] VITALS: BMI 23.3
[2025-01-31 14:19] LABS: INR 2.1 (0.9-1.3); Prothrombin Time 22.9 SECONDS (9.4-12.5)
== END ==
PROVIDERS: PCP Family Medicine; Visit Provider Family Medicine
DX: I48.20 Chronic atrial fibrillation, unspecified (principal)
CPT/HCPCS: 85610

== ENCOUNTER → 2025-02-20 15:24 | Outpatient (ROUT) | payer OTHER, SELFPAY ==
[2024-08-24 12:01] VITALS: BMI 23.3
[2025-02-20 15:36] LABS: INR 3.5 (0.9-1.3); Prothrombin Time 38.4 SECONDS (9.4-12.5)
== END ==
PROVIDERS: PCP Family Medicine; Visit Provider Family Medicine
DX: I48.20 Chronic atrial fibrillation, unspecified (principal)
CPT/HCPCS: 85610